=== PATIENT | female | born 1935 | race Caucasian/White ===

== ENCOUNTER 2016-11-03 14:09 | Inpatient (IN) | payer MEDICARE ==
[~2016-11-03] VITALS: Ht 167.6 cm; Wt 70.3 kg
[2016-11-03 14:14] VITALS: BP 144/80; PULSE 83; RESP 18; O2SAT 93
[2016-11-03 15:44] LABS: BASOPHILS % (AUTO) 0.5 % (0-3); EOSINOPHILS % (AUTO) 1.8 % (0-5); MONOCYTES % (AUTO) 9.5 % (4-12); Mean Corpuscular Hemoglobin 26.5 pg (27.0-35.0); Mean Corpuscular Volume 85.2 fL (81-100); NEUTROPHILS % (AUTO) 78.5 % (40-74); Platelet Count 245 bil/L (150-400)
--- NOTE | 2016-11-03 15:59 | DRSVH ---
PROCEDURE: X-RAY CHEST ONE VIEW, PORTABLE ([id number]) INDICATIONS: chf TECHNIQUE: One view of the chest was acquired. COMPARISON: None. FINDINGS: Surgical changes and devices: None. Lungs and pleura: No pleural effusions or pneumothorax. Lungs are clear. Mediastinum: Mediastinal contours appear normal. Heart size is normal. Bones and chest wall: No suspicious bony lesions. Overlying soft tissues appear unremarkable. IMPRESSION: No acute cardiopulmonary abnormality Dictated by: Jewel Deshpande M.D. on 11/03/2016 at 15:56 Approved by: Jewel Deshpande M.D. on 11/03/2016 at 15:57
[2016-11-03 16:24] LABS: TROPONIN T < 0.010 ug/L (0.0-0.011)
--- NOTE | 2016-11-03 18:04 | ED.REPORT ---
HPI-General Illness Date of Service Nov 03, 2016 ED Provider: Dr. Eros Islas M.D. A healthy 81 year old female presents to the ED from Urgent Care with worsening exertional dyspnea onset two weeks ago. Associated symptoms include constipation , confusion, decreased appetite, left hip pain, nausea, vomiting, and fatigue. Her symptoms have progressed to difficulty and shortness of breath with simple tasks such as dressing herself and showering. The patient denies fever, urinary symptoms, chest pain, focal weakness, diaphoresis, or other symptoms. She has recently been followed by her PCP for bilateral lower extremity edema with no known cause, treated with Furosemide. 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 Nursing Notes Stated Complaint: SOB Chief Complaint: Respiratory Distress Nursing Notes Reviewed: Yes Allergies: Coded Allergies: No Known Allergies (Unverified , 11/03/16) Scheduled Ascorbic Acid (Vitamin C) 250 Mg Tab.chew 500 MG PO DAILY Aspirin (Aspirin) 325 Mg Tablet 325 MG PO DAILY Calcium Carbonate (Calcium Carbonate) 500 Mg/5 Ml Oral.susp 500 MG PO DAILY Furosemide (Furosemide) 40 Mg Tablet 40 MG PO DAILY States stopped taking bc vivian who wants to be an MD told her it may be reason pt is short of breath Gluc 2Kcl/Chondr/Jt Hy/Hy AC (Glucosamine & Chondroitin Cap) 1 Each Capsule 1 EACH PO DAILY Multivit with Calcium,Iron,Min (Therapeutic M) 1 Each Tablet 1 EACH PO DAILY Potassium Gluconate (Potassium Gluconate) 99 Mg Tablet 99 MG PO DAILY General Time Seen by MD: 18:03 Chief Complaint Breathing problem (Exertional Dyspnea) Hx Obtained From: Patient Arrived By: Walk-in Sudden in Onset?: No Onset Occurred: More than a week ago... (2 weeks) Symptom Duration: Intermittent Location: : Hip left Quality: Painful Severity: Current: Moderate Severity: Maximum: Moderate Associated with: Reports: Nausea, Vomiting, Denies: Chest pain, Diaphoresis, Fever Pertinent Negative: Relieved by nothing Recent Healthcare: No recent doctor visit, Previous surgery Past Medical History Past Medical History Bilateral lower extremity edema treated with Furosemide Past Surgical History None reported Smoking History Unknown if Ever Smoker Social History Other Social History: Good social support Ambulatory Status Independent Review of Systems + Decreased appetite - Urinary symptoms Full Review of Systems Constitutional: Reports: Fatigue, Denies: Fever Respiratory: Reports: Dyspnea on exertion Cardiovascular: Denies: Chest pain GI: Reports: Constipation, Nausea, Vomiting Musculoskeletal: Reports: Extremity swelling (Bilateral legs), Joint pain ( Left hip) Skin: Denies Diaphoresis Neurologic: Denies: Focal weakness Psychiatric: Reports: Confusion Complete sys rev & neg: except as marked. Physical Exam Vital Signs Vital Signs Date Time Temp Pulse Resp B/P Pulse Ox O2 Delivery O2 Flow Rate FiO2 11/03/16 18:41 37.2 80 20 146/66 96 Room Air 11/03/16 14:14 36.3 83 18 144/80 93 Initial VS: Reviewed Head / Eyes: Atraumatic, Normocephalic Respiratory: Breath sounds normal, Clear to auscultation, No respiratory distress Cardiovascular: Regular rate & rhythm, Heart sounds normal Skin: Warm, Dry, No cyanosis Neurologic: Alert, Oriented, Nonfocal Psychiatric: Mood/affect normal, Behavior normal, Normal thought content General/Constitutional: Awake, Alert, No acute distress Distress / Hydration: Positive: Dehydration mild ENT: Airway patent Mouth: Positive: Mucous membranes dry Abdomen: Soft Tenderness/Guarding/Rebound: Positive: Tender LLQ... Interpretation & Diagnostics Lab Results Interpretation Result Diagram: 11/03/16 1537 11/03/16 1537 Test 11/03/16 15:37 11/03/16 19:15 White Blood Count 6.2th/mm3 (3.8-10.1) Red Blood Count 4.31mil/mm3 (3.90-5.20) Hemoglobin 11.4g/dL (12.0-15.6) Hematocrit 36.7% (35.0-46.0) Mean Corpuscular Volume 85.2fL (81-100) Mean Corpuscular Hemoglobin 26.5pg (27.0-35.0) Mean Corpuscular Hemoglobin Concent 31.1% (32.0-37.0) Red Cell Distribution Width 13.3% (12.3-15.4) Platelet Count 245bil/L (150-400) Neutrophils (%) (Auto) 78.5% (40-74) Lymphocytes (%) (Auto) 9.5% (14-46) Monocytes (%) (Auto) 9.5% (4-12) Eosinophils (%) (Auto) 1.8% (0-5) Basophils (%) (Auto) 0.5% (0-3) Sodium Level 137mEq/L (134-144) Potassium Level 5.0mEq/L (3.5-5.2) Chloride Level 96mEq/L (97-108) Carbon Dioxide Level 31mmol/L (18-29) Blood Urea Nitrogen 46mg/dL (8-27) Creatinine 2.22mg/dL (0.57-1.00) Estimat Glomerular Filtration Rate 31mL/min (>59) Glucose Level 95mg/dL (60-99) Calcium Level 16.0mg/dL (8.5-10.1) Total Bilirubin 0.3mg/dL (0.0-1.2) Aspartate Amino Transf (AST/SGOT) 14U/L (0-50) Alanine Aminotransferase (ALT/SGPT) 9U/L (0-32) Alkaline Phosphatase 72U/L (25-165) Troponin T < 0.010ug/L (0.0-0.011) Pro-B-Type Natriuretic Peptide 782.2pg/mL (0-738) Total Protein 6.6g/dL (6.4-8.4) Albumin 3.8g/dL (3.4-5.0) Thyroid Stimulating Hormone (TSH) 5.510uIU/mL (0.450-4.500) Free Thyroxine 1.21ng/dL (0.82-1.77) Hold Guzmán Top Tube Received (Received) ECG Interpretation ECG Interpretation: Sinus rhythm rate 74 Probable left atrial enlargement Abnormal R-wave progression, early transition Inferior infarct, old No STEMI Time: 15:41 Interpreted by: ED physician X-Ray Chest Interpretation Chest Xray Interpretation: IMPRESSION: No acute cardiopulmonary abnormality Dictated by: Jewel Deshpande M.D. on 11/03/2016 at 15:56 View: Portable, 1 view Interpretation / Wet Read by: Interpret - Radiologist X-Ray Interpretation Xray Interpretation: IMPRESSION: Minimal bilateral hip joint degeneration. Dictated by: Munir Higgins M.D. on 11/03/2016 at 20:06 Study Performed: AP Pelvis w/ Lateral Left Hip X-Ray Ordered: Pelvis, Hip left Interpretation / Wet Read by: Interpret - Radiologist Re-Eval/Medical Decision Med Decision/Clinical Course 81-year-old presents with exertional dyspnea type symptoms, but is discovered to be grossly hypercalcemic on blood evaluation. Source of this is unclear. Differential concerns include hyperparathyroidism, adrenal insufficiency, malignancy, including breast cancer, multiple myeloma, and also paraneoplastic syndromes associated with various tumors. She does take a single Tums daily, but this is unlikely to account for the height of her hypercalcemia. She does not take vitamin D supplements. She is admitted for IV hydration and Lasix, parathormone determination is pending, thyroid functions are not remarkable, (trivial elevation of TSH) , and no obvious metastatic disease on acquired x-rays. Additionally, while all of her symptoms may be due to her hypercalcemia, the possibility of progressive angina needs to be considered and excluded. Time of Eval: 18:30 Patient Status: Condition improved Re-Evaluation/Progress Note: Discussed with patient x-ray and lab results, diagnosis, and plan for admit. Patient agrees with plan for care and all questions were addressed. Consultation : Referral / Consult Name: Sonny Zepeda MD Consulted With: Hospitalist Call Returned at: 19:03 Wireless Sales Manager: Agrees with eval, Agrees with plan, Accepts admit Counseled Regarding: Diagnosis, Lab results, Need for admission Discharge & Departure Primary Impression: Hypercalcemia Additional Impression: Progressive angina Disposition: ADMITTED TO HOSPITAL Discharge Condition All VS Reviewed: Yes Condition: Improved Referrals: Sylvia Josue DO (PCP) [place]mar Attestation Portions of this note were transcribed by Nicole Barth. I, Dr. Islas, personally performed the history, physical exam, and medical decision-making; I reviewed and confirmed the accuracy of the information in the transcribed note. Signed by: Delmar Delong, 11/03/2016, 22:00 copies to: Sylvia Josue Christopher W MD Nov 03, 2016 18:04 NICOLE BARTH Nov 03, 2016 18:09
[2016-11-03] MEDS ORDERED: 0.9% Sodium Chloride 1,000 ML IV SCH (18:40)
[2016-11-03 18:41] VITALS: BP 146/66; PULSE 80; RESP 20; O2SAT 96
[2016-11-03] MEDS ORDERED: Alum-Mag Hydrox-Simeth 30 mL Suspension PO PRN (19:15)
[2016-11-03] MEDS ORDERED: Polyethylene Glycol (PEG) 17 Gm Powder PO PRN (19:15)
--- NOTE | 2016-11-03 20:08 | DRSVH ---
PROCEDURE: X-RAY PELVIS W/LAT HIP (LT) ([id number]) INDICATIONS: pain left hip TECHNIQUE: AP pelvis with lateral view(s) of the left hip(s). COMPARISON: None. FINDINGS: Bones: No fractures or dislocations. Pelvic ring appears intact. No suspicious bony lesions. Lowe r lumbar disc degeneration. Minimal bilateral hip joint degeneration Soft tissues: The visualized bowel gas pattern is normal. No suspicious soft tissue calcifications. IMPRESSION: Minimal bilateral hip joint degeneration. Dictated by: Munir Higgins M.D. on 11/03/2016 at 20:06 Approved by: Munir Higgins M.D. on 11/03/2016 at 20:07
[2016-11-03] MEDS ORDERED: CALC500O PO (21:22)
[2016-11-03] MEDS ORDERED: GLUC-120 PO (21:23)
[2016-11-03] MEDS ORDERED: FURO40TA4 PO (21:24)
[2016-11-03] MEDS ORDERED: POTA99TA3 PO (21:26)
[2016-11-03] MEDS ORDERED: MULT-140 PO (21:27)
[2016-11-03] MEDS ORDERED: ASPI325T32 PO (21:27)
[2016-11-03] MEDS ORDERED: ASCO250T7 PO (21:28)
[2016-11-03 21:51] VITALS: BP 157/83; PULSE 93; RESP 18; O2SAT 96
[2016-11-03 21:56] VITALS: PULSE 79
[2016-11-03 22:16] LABS: APPEARANCE,URINE SLIGHTLY CLOUDY (CLEAR,HAZY); COLOR,URINE YELLOW (YELLOW); OCCULT BLOOD,URINE NEGATIVE (NEGATIVE); UROBILINOGEN,URINE NORMAL (NORMAL)
--- NOTE | 2016-11-03 22:30 | NUR ---
Pt arrive to unit at 2114. Sitting at bedside and talking with staff, no complaints of pain or SOB. On O2 via NC. Tele Sr 93 1st degree. Will continue to monitor
[2016-11-03] MEDS: 0.9% Sodium Chloride 1,000 ML IV SCH (23:04)
[2016-11-04] MEDS ORDERED: Heparin 5,000 Unit/mL Inj SUBQ SCH (00:30)
--- NOTE | 2016-11-04 00:44 | PCM.HPMED ---
Subjective Date of Service Nov 03, 2016 Primary Provider: Admitting Physician: Primary Care Physician: Sylvia Josue DO Attending Physician: Chief Complaint: Persistent shortness of breathe History of Present Illness: Marleen Neil is a 81 year old female with Chronic leg edema of Lasix who presents to [facility] emergency department from Urgent Care with worsening exertion dyspnea onset two weeks ago. Patient reported the dyspnea has been progressively getting worse with difficulty doing daily activities such as dressing and walking around in her house. Associated symptoms include constipation, fatigue, confusion, decreased appetite, left hip pain, nausea, vomiting, and fatigue. She denies fever, urinary symptoms, chest pain, focal weakness, diaphoresis. She has recently been followed by her PCP for bilateral lower extremity edema with no known cause, treated with Furosemide and lost a few pounds after starting. She stopping taking the Lasix on the recommendations of her family. 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 Patient not currently on any Vitamin D or Calcium supplementations. She was suppose to get an echo and Cardiology evaluation on 12/04/16. Clinic data reviewed: Calcium 10 on 10/17/16. Reported of elevated BP but not diagnosed with Hypertension and not on any blood pressure medications. Review of Systems: Pertinent positives as noted in HPI. All other systems were reviewed and are negative Allergies Coded Allergies: No Known Allergies (Unverified , 11/03/16) Home Medications From Marleen Begum [id number] 1935 11/03/2016 01:15 PM 1/3 furosemide 40 mg tablet take 1 tablet by oral route every day Glucosamine prednisolone acetate 1 % eye drops,suspension PMH Chronic lower extremity edema Elevated Blood pressure but not on medications Surgical History Cataract extraction Family History Father had Cancer (unknown) Sister and Daughter has Breast Cancer Son is a Diabetic Social History Hx Alcohol Use: No Hx Substance Use: No Hx Tobacco Use: Yes Smoking Status: Former Smoker Exam Vital Signs Vital Sign - Last Date Time Temp Pulse Resp B/P Pulse Ox O2 Delivery O2 Flow Rate FiO2 11/03/16 18:41 37.2 80 20 146/66 96 Room Air Exam General: Alert, Oriented X3, Cooperative, No acute Distress Eyes: PERRLA, Scleral Anicteric Mouth: Mouth Normal, Mucous Membranes Moist/[place] Neck: Supple, no Thyromegaly, trachea central. Chest & Lungs: Clear to auscultation & percussion, No adventitious breath sounds, no crackles, no wheeze Cardiovascular: Normal S1, Normal S2, No Murmurs/Rubs/Gallops, Regular Rate/ Rhythm, (No JVD, no peripheral edema) Pulses: Radial (present and equal), Dorsalis Pedi (present and equal) Abdomen: Soft, Non-tender, Non-distended, Normoactive bowel tones. Musculoskeletal: Unremarkable. Normal range of motion, no swollen or erythematous joints Extremities: 2 + pitting leg edema, no cyanosis, no clubbing. Skin: No rashes. Warm and dry, no erythematous areas Neurological: Grossly neurologically intact, has generalized weakness, Normal Speech, Sensation Intact Lymphatic: Lymph nodes Cervical and Axillary not palpable. Lab and Diagnostics Labs Laboratory Tests Test 11/03/16 15:37 White Blood Count 6.2th/mm3 (3.8-10.1) Red Blood Count 4.31mil/mm3 (3.90-5.20) Hemoglobin 11.4g/dL (12.0-15.6) Hematocrit 36.7% (35.0-46.0) Mean Corpuscular Volume 85.2fL (81-100) Mean Corpuscular Hemoglobin 26.5pg (27.0-35.0) Mean Corpuscular Hemoglobin Concent 31.1% (32.0-37.0) Red Cell Distribution Width 13.3% (12.3-15.4) Platelet Count 245bil/L (150-400) Neutrophils (%) (Auto) 78.5% (40-74) Lymphocytes (%) (Auto) 9.5% (14-46) Monocytes (%) (Auto) 9.5% (4-12) Eosinophils (%) (Auto) 1.8% (0-5) Basophils (%) (Auto) 0.5% (0-3) Sodium Level 137mEq/L (134-144) Potassium Level 5.0mEq/L (3.5-5.2) Chloride Level 96mEq/L (97-108) Carbon Dioxide Level 31mmol/L (18-29) Blood Urea Nitrogen 46mg/dL (8-27) Creatinine 2.22mg/dL (0.57-1.00) Estimat Glomerular Filtration Rate 31mL/min (>59) Glucose Level 95mg/dL (60-99) Calcium Level 16.0mg/dL (8.5-10.1) Total Bilirubin 0.3mg/dL (0.0-1.2) Aspartate Amino Transf (AST/SGOT) 14U/L (0-50) Alanine Aminotransferase (ALT/SGPT) 9U/L (0-32) Alkaline Phosphatase 72U/L (25-165) Troponin T < 0.010ug/L (0.0-0.011) Pro-B-Type Natriuretic Peptide 782.2pg/mL (0-738) Total Protein 6.6g/dL (6.4-8.4) Albumin 3.8g/dL (3.4-5.0) Thyroid Stimulating Hormone (TSH) 5.510uIU/mL (0.450-4.500) Free Thyroxine 1.21ng/dL (0.82-1.77) Hold Guzmán Top Tube Received (Received) Result Diagram: 11/03/16 1537 11/03/16 1537 X-Rays, CTs and MRIs X-RAY CHEST ONE VIEW, PORTABLE 11/03 IMPRESSION: No acute cardiopulmonary abnormality Dictated by: Jewel Deshpande M.D. on 11/03/2016 at 15:56 Approved by: Jewel Deshpande M.D. on 11/03/2016 at 15:57 Assessment & Plan Marleen Neil is a 81 year old female with Chronic leg edema of Lasix who presents to [facility] emergency department from Urgent Care with worsening exertion dyspnea 1. Acute Hypercalcemia. Present on admission Suspect lab error as her Calcium was normal on 10/17/16. Etiology includes Primary or Secondary hyperparathyroidim, Adrenal insufficiency, Humoral hypercalcemia of malignancy,Multiple Myeloma, Sarcoidosis. Patient has extensive family history of cancer. - IV fluids saline diuresis, stop in the morning and re evaluate - checking PTH and PTH related peptide - restrict calcium intake and encourage mobilization - doubt Bisphosphonates or calcitonin are indicated given her mild symptoms 2. Subacute dyspnea with leg edema. Present on admission Suspect Congestive heart failure. BNP elevated at 782.2 - complete echo tomorrow - Cardiology evaluation as outpatient. 3. Acute Kidney injury. Present on admission Suspect secondary to pre renal azotemia due to hypovolemia. Rule out disease process such as Kidney stones or Multiple myeloma - avoid nephrotoxic insults - monitor urine output - consider Nephrology consult if no improvement with IV fluids - Acetaminophen as needed for mild pain/fever/headache - Bowel regimen as needed - Antiemetic as needed Patient admitted under inpatient status with expected length of stay > 2 midnights for severity of present symptoms, complexities of treatment plan and risk for adverse event . Resuscitation Status: CPR: Attempt Resuscitation Sonny Zepeda MD Nov 03, 2016 19:19
[2016-11-04 01:26] VITALS: BP 135/67; PULSE 99; RESP 16; O2SAT 94
--- NOTE | 2016-11-04 04:45 | NUR ---
Activity Pt calls for assist appropriately. Tele S93 with 1st degree block. NS infusing at 125. Pt concerned about elevating her legs in bed due to edema, likes to sleep with her head flat. UA sent. No complaints of SOB this shift. Care continues Addendum: 11/04/16 at 0619 by SUMMER KWAN RN [id number] Critical Ca of 13.4 called to RN from lab. RN notified Dr Zepeda via [employer] page- decrease Ca from previous result 16.0 on 11/03 at 1500
[2016-11-04 05:22] VITALS: BP 140/69; PULSE 89; RESP 18; O2SAT 95
[2016-11-04] MEDS: 0.9% Sodium Chloride 1,000 ML IV SCH ×3 (07:21→16:51)
[2016-11-04 11:07] VITALS: PULSE 76
[2016-11-04] MEDS: PREDNISOLONE 1% LEFT_EYE SCH ×3 (11:31→20:52)
--- NOTE | 2016-11-04 11:46 | NUR ---
having an ultrasound and ecogram done; unable to do vitals Addendum: 11/04/16 at 1147 by KELSEY DICKEY CNA Amended: Links added.
--- NOTE | 2016-11-04 11:58 | DRSVH ---
PROCEDURE: US RENAL SONOGRAM INDICATIONS: rule out kidney stones TECHNIQUE: Real-time scanning was performed of the kidneys and bladder, with image documentation. COMPARISON: [facility], CT, KUB - CT (ABD/PEL W/O CONT), 10/02/2010, 23:32. FINDINGS: Kidneys: Kidneys are normal in size. Right kidney measures 11.7 cm long; left kidney measures 11.4 cm long. Right renal cortical thickness is 1.5 cm; left renal cortical thickness is 1.6 cm. Renal c ortical echotexture is normal. No hydronephrosis or nephrolithiasis. Mild left renal pyelectasis. No suspicious solid mass lesions. Bladder: Pre-void bladder volume is 296 mL. Post-void residual is 96 mL. Pre-void images demonstra te no intraluminal masses or stones. On pre-void images, there ureteral jets are noted with color Do ppler interrogation. (Of note, ureteral jets may not be detectable in up to 25% of cases due to insu fficient differences in specific gravity between ureteral and bladder urine). Miscellaneous: No free pelvic fluid. IMPRESSION: 1. No visible stones seen bilaterally. 2. Mild left renal pyelectasis. 3. 96 cc PVR. Dictated by: Jose M HOLGUIN Interpreted: Neela Oseguera MD on 11/04/2016 at 11:56 Transcribed by: CHRISTIANO on 11/04/2016 at 11:58 Approved by: Neela Oseguera M.D. on 11/05/2016 at 9:28
--- NOTE | 2016-11-04 12:02 | NUR ---
Lower extremity ultrasound Received call from ultrasound regarding results of pts LE study. Pt is positive for occlusive and nonocclusive DVT in mid to distal superficial femoral vein of the right leg. Will notifiy hospitalist.
--- NOTE | 2016-11-04 12:52 | DRSVH ---
PROCEDURE: US VENOUS LEG DUPLEX BILATERAL INDICATIONS: rule out dvt TECHNIQUE: Real-time imaging, as well as color and pulse Doppler interrogation, were performed of the deep veins of both legs from the inguinal ligament to the popliteal fossa. COMPARISON: None. FINDINGS: The knee superficial femoral vein is bifid and there is occlusive thrombus present within the mid and distal aspects of the vessels. Thrombus also within the right popliteal vein which is no ncompressible. The common femoral and proximal superficial femoral vein is patent. 1.1 cm right juliocesar in lymph node. No deep venous thrombosis seen within the left lower extremity. IMPRESSION: 1. Occlusive thrombus within the bifid right superficial femoral vein as well as the popliteal vein s uspicious for acute deep venous thrombosis. 2. Enlarged morphologically normal appearing right groin lymph node. Recommend clinical correlation and management. Angelina Haro RN given results by the telegraphic typewriter mechanic at 1210 hrs. 11/04/2016. Dictated by: Jose M HOLGUIN Interpreted: Neela Oseguera MD on 11/04/2016 at 12:49 Transcribed by: CHRISTIANO on 11/04/2016 at 12:52 Approved by: Neela Oseguera M.D. on 11/05/2016 at 9:28
--- NOTE | 2016-11-04 13:12 | DRSVH ---
[facility] [address] [place] [address] Echocardiogram Report Name: PAXTON WALKERudy Date : 11/04/2016 Height: 66 in Hospital Exam Location: [facility] Weight: 155 lb Gender: Female BSA: 1.8 m2 : 1935 Age: 81 yrs BP: 140/69 mmHg Reason For Study: EDEMA, DYSPNEA Ordering Physician: HOSPITALIST [facility] Performed By: Juan Box Referring Physician: Adam BAEZA Interpretation Summary The left ventricle is normal in size. The ejection fraction is estimated to be 60-65%. There is mild to moderate tricuspid regurgitation. The right ventricular systolic pressure is estimated at 47 mmHg assuming a right atrial pressure of 3 mm Hg. The ascending aorta is moderately enlarged. Procedure: A two-dimensional transthoracic echocardiogram with color flow and Doppler was performed. The study quality was technically good. There is no prior echocardiogram noted for this patient. The patient was in normal sinus rhythm during the exam. Left Ventricle: The left ventricle is normal in size. There is normal left ventricular wall thickness. The ejection fraction is estimated to be 60-65%. There are no focal wall motion abnormalities. Right Ventricle: Borderline right ventricular enlargement. The right ventricular systolic function is normal. Atria: The left atrial size is normal. The right atrium is severely dilated. The interatrial septum is intact with no evidence for an atrial septal defect. Mitral Valve: The mitral valve is normal in structure and function. There is trace mitral regurgitation. Aortic Valve: The aortic valve is trileaflet. The aortic valve opens well. No aortic regurgitation is present. Tricuspid Valve: The tricuspid valve is normal in structure and function. There is mild to moderate tricuspid regurgitation. The right ventricular systolic pressure is estimated at 47 mmHg assuming a right atrial pressure of 3 mm Hg. Pulmonic Valve: The pulmonic valve is normal in structure and function. There is trace pulmonic regurgitation. Great Vessels: The aortic root is normal size. The ascending aorta is moderately enlarged. The pulmonary artery is normal size. The IVC is of normal diameter and collapses greater than 50% with a sniff. This suggests a low right atrial pressure of 3 mm Hg. Pericardium/ Pleura There is no pericardial effusion. There is no pleural effusion. MMode/2D Measurements & Calculations LVIDd: 4.5 cm RA long axis LVOT diam: 2.0 cm LVIDs: 2.5 cm LA A2 area: 18.2 cm Ao root diam FS: 43.8 % LA A4 area: 21.5 cm RA area EPSS: 0.68 cm LA length (vol) Aortic Jxn: 3.0 cm IVSd: 0.66 cm : 26.6 cm asc Aorta Diam LVPWd: 0.92 cm LA vol: 54.0 ml RA vol LA vol index : 107.ml Ao Arch Diam (Prox RA Trans): 2.7 cm : 59.7 mm2 IVC diam: 1.8 cm LV gutierrez. diameter/BSA LV sys. diameter/BSA RVD1 (basal) RVD2 (mid): 3.4 cm (cm/m^2): 2.5 (cm/m^2): 1.4 Doppler Measurements & Calculations Ao V2 max MV E max taco MV E/A: 0.68 TR max taco : 174.5 cm/sec : 73.3 cm/sec Med Peak E' Taco : 332.1 cm/sec Ao max P.2 mmHg MV A max taco TR max PG Ao mean P.1 mmHg : 107.8 cm/sec E/E' med: 8.7 : 44.1 mmHg LVOT Max Taco Lat Peak E' Taco PA V2 max : 110.1 cm/sec : 100.2 cm/sec E/E' lat: 8.2 PA mean PG MIGUEL(I,D): 2.5 cm E/e' average : 1.8 mmHg sev ratio: 0.79 Pulm A Revs Dur MV A dur : 0.13 sec MV dec time: 0.20 secAo V2 mean LV V1 max PG PA V2 mean : 118.0 cm/sec : 60.7 cm/sec Ao V2 VTI: 33.4 cm LV V1 VTI : 26.3 cm MIGUEL(V,D): 2.0 cm2 MIGUEL indexed to BSA Pulm A Revs Dur - MV A (cm^2/m^2): 1.4 Dur: 0.01 msec Electronically signed by: Rhett Galo on Reading Physician:11/04/2016 01:11 PM
[2016-11-04 14:50] VITALS: BP 131/70; PULSE 74; RESP 18; O2SAT 94
[2016-11-04] MEDS: Furosemide 10 mg/mL 4 mL Inj IVPUSH SCH (15:03)
--- NOTE | 2016-11-04 15:55 | NUR ---
Social Work- Initial Assessment Data: See Initial Assessment. Pt is a 81 year old female admitted 11/03/16 for hypercalcemia per H&P. Pt's insurance is [employer]. PCP is Sylvia Josue DO. PASCUAL met with pt at bedside to discuss discharge planning, SW role explained. Pt was alert and oriented x3. Pt resides in [place] alone in senior apartments where she remains independent with her ADLs. Pt has no HH or SNF experience. Pt uses no DME and drives. Pt has no LTC or VA benefits. SW discussed DPOA and provided pt information. Pt to discharge home with grandkids to transport via POV. No anticipated discharge needs. SW continues to follow. Assessment: Pt who is independent at discharge. Plan: Pt to discharge home with grandkids to transport via POV. No anticipated discharge needs. PASCUAL continues to follow. ANA Olivier Addendum: 11/04/16 at 1558 by JHON CRAWFORD Amended: Links added.
--- NOTE | 2016-11-04 16:10 | CONS ---
[address] [address] CONSULTATION REPORT PATIENT: PAXTON WALKER : 1935 MR#: [id number] ADMIT: 11/03/2016 JOB ID: [id number] DATE OF SERVICE: 11/04/2016 RENAL CONSULTATION: HISTORY: The patient is a very pleasant 81-year-old white female, who was admitted to [facility] for acute kidney injury and severe hypercalcemia. Renal consultation is being sought for further evaluation and management of her acute kidney injury. The patient states that she was feeling fine until August when she underwent a corneal transplant. Following this, she states that she has had considerable number of problems including intermittent but severe left hip and left knee pain. She states that she has taken a few acetaminophen but has not taken any NSAIDs for this. The pain improves somewhat, however, this is followed for the last three weeks by progressive shortness of breath with even minimal exertion. She denies any recent upper respiratory tract symptoms, chest pain, paroxysmal nocturnal dyspnea, cough, wheezing, leg pain, or muscle pain in either lower extremities, but she does state that she has some mild chronic lower extremity edema. She also states her appetite has been diminished over the last few weeks. She has had some nausea but no vomiting, constipation or diarrhea. She does state that she takes one Sagrario tablet a day and has for a number of years. Otherwise she states she has had some increased somnolence and generalized fatigue. There are no recent myalgias, rashes, fever or chills. She denies a history of any prior renal problems. There is no difficulties in urination or any current or past history of hematuria, proteinuria, recurrent urinary tract infections or renolithiasis. She denies a history of diabetes, hepatitis, hypertension or lupus. In the emergency department, her creatinine was elevated at 2.22 and her calcium at that time was 16.0. She has been treated with aggressive hydration and her calcium has improved down to 13 and there has been a slight improvement in her creatinine. DATE OF SERVICE: PAST MEDICAL HISTORY: Is remarkable only for some chronic lower extremity edema which has been treated intermittently with furosemide. As noted above, there is no history of any prior stroke, seizure, asthma, emphysema, coronary artery disease, congestive heart failure, thyroid illness or hepatitis. PAST SURGICAL HISTORY: Is remarkable for corneal transplant as detailed above. She has no allergy for any medications. SOCIAL HISTORY: She denies use of alcohol, tobacco or illicit drugs. She states that she normally is quite active in her numerous activities of daily living which until the last two months she has performed without any significant restrictions. FAMILY HISTORY: Remarkable for a daughter who of breast cancer. The patient has had one mammogram in the past and has never had a colonoscopy. She is currently not on any medications prior to admission other than some p.r.n. furosemide. REVIEW OF SYSTEMS: As detailed above. Otherwise is unremarkable. PHYSICAL EXAMINATION: Revealed a well-developed 81-year-old white female who is alert and oriented x3, in no distress at the time of my evaluation. Her temperature was 37.0, blood pressure was 140/69, pulse rate was 88 and respirations were 18. HEENT examination is remarkable for mildly pale sclerae. Cornea and conjunctivae were unremarkable. Neck is supple without adenopathy, thyromegaly or jugular venous distention. Lungs showed some diminished breath sounds in both bases. Heart was regular and rhythmical with a soft systolic murmur. Abdomen is soft, without any tenderness, rebound, guarding, masses or hepatosplenomegaly. Extremities showed some mild bilateral lower extremity pitting edema. There is no clubbing or cyanosis noted. Skin turgor was good and there is no evidence of any rashes. LABORATORY EXAMINATION: This morning, her sodium is 138, potassium 4.1, chloride of 101, bicarbonate is 26. BUN and creatinine were 43 and 2.14. Calcium was 13.4. TSH was slightly elevated at 5.5, and her intact PTH was low at 10. Her white count was 6.2, hemoglobin 11.4, hematocrit 36.7, red cell indices, platelet count and differential were normal. Urinalysis showed a specific gravity 1.020, pH was 6. Tests for protein were slightly positive. Occult blood ketones and leukocyte esterase were negative. She had 6-10 WBCs per high-power field, moderate epithelial cells, a few hyaline casts and there were some calcium oxalate crystals noted. Her chest x-ray was unremarkable for any masses or bony changes. X-ray of the left hip and pelvis did not show any lytic or blastic lesions. Venous duplex showed a DVT in the right lower leg and a questionable right inguinal lymph node enlargement. Renal ultrasound done this morning showed normal-size kidneys with normal dense cortical medullary distinction. There was some mild left renal pelviectasis and there was a 96 mL postvoid residual. IMPRESSION: 1. Acute kidney injury secondary to dehydration. 2. Hypercalcemia. In light of the patient's age, I would be strongly suspicious of some type of underlying malignancy. 3. Mild normocytic, normochromic anemia. 4. Deep venous thrombosis. RECOMMENDATION: As noted above, I am very suspicious of an underlying malignancy and would like to get a serum protein electrophoresis along with a mammogram and other tumor markers. I would also like to get a sed rate and an LDH on her with her morning lab. I would like to continue her on the normal saline but also add some Lasix to her IV. Once again, I would like to thank you for allowing me to participate in the care of this most interesting patient. I will be following her closely with you.
--- NOTE | 2016-11-04 16:13 | NUR ---
Pt off unit Pt transported to Radiology at 1600 hrs for nuclear medicine VQ scan and bone survey x-rays.
--- NOTE | 2016-11-04 17:55 | DRSVH ---
PROCEDURE: X-RAY CHEST, TWO VIEWS ([id number]) INDICATIONS: DVT with shortness of breath and hypoxia TECHNIQUE: 2 views of the chest were acquired. COMPARISON: [facility], CR, XR CHEST 1VW (PORTABLE), 11/03/2016, 15:35. FINDINGS: Surgical changes and devices: None. Lungs and pleura: There is a small left pleural effusion which is new when compared with the study da adilson 11/03/16. No pneumothorax. Right lung is clear. Mediastinum: Mediastinal contours are normal. Heart size is normal. Bones and chest wall: No suspicious bony abnormalities. Soft tissues appear unremarkable. IMPRESSION: Small left pleural effusion new when compared with yesterday's study. Dictated by: Nila Last M.D. on 11/04/2016 at 17:52 Approved by: Nila Last M.D. on 11/04/2016 at 17:53
[2016-11-04 20:00] VITALS: PULSE 84
[2016-11-04 20:45] VITALS: BP 129/72; PULSE 78; RESP 20; O2SAT 97
[2016-11-04] MEDS: Calcitonin 200 unit/mL 2mL Inj IM SCH (20:54)
--- NOTE | 2016-11-04 21:20 | DRSVH ---
PROCEDURE: NM LUNG VQ RADIOPHARMACEUTICAL: 26.8 mCi Tc-99m DTPA aerosol by inhalation and 5.48 mCi Tc-99m MAA intravenously . INDICATIONS: DVT with shortness of breath and hypoxia TECHNIQUE: Ventilation images were obtained first with Tc-99m DTPA aerosol. Subsequently, perfusion images were acquired after intravenous injection of Tc-99m MAA. Anterior, posterior, GOMEZ, KAYLEIGH, RPO, LPO, left and right lateral views were obtained. COMPARISON: [facility], CR, XR CHEST 2VW, 11/04/2016, 17:31. FINDINGS: An unmatched perfusion defect is present within the anterior segment of the right upper lob e. No other perfusion/ventilation defects visualized. IMPRESSION: 1. Unmatched perfusion defect within the anterior segment of the right upper lobe. No associated abno rmality is visualized on the plain film from the same date. No other perfusion defects or ventilation defects. This suggests an intermediate probability of pulmonary embolus. Dictated by: Nila Last M.D. on 11/04/2016 at 21:10 Approved by: Nila Last M.D. on 11/04/2016 at 21:18
--- NOTE | 2016-11-04 21:23 | DRSVH ---
PROCEDURE: X-RAY COMPLETE BONE SURVEY ([id number]) INDICATIONS: hypercalcemia, RULE OUT MYELOMA TECHNIQUE: Multiple views obtained of various bony structures as described below. COMPARISON: None. FINDINGS: Skull (lateral): No suspicious bony lesions. No fractures. Thoracic spine (AP, lateral): Bones are osteopenic. No suspicious bony lesions. No acute vertebral body compression fractures. There are moderate degenerative changes including intervertebral disc sp dominique narrowing and osteophytosis. Lumbar spine (AP, lateral): Bones are osteopenic. No suspicious bony lesions. No acute vertebral puma dy compression fractures. There is grade I L5 on S1 anterolisthesis. Moderate facet sclerosis is pres ent within the lower lumbar spine. Pelvis (AP): No suspicious bony lesions. No fractures. Overlying soft tissues appear unremarkable. Right and left humeri (AP): No suspicious bony lesions. No fractures. Overlying soft tissues appea r unremarkable. Right and left femurs (AP): No suspicious bony lesions. No fractures. Overlying soft tissues appea r unremarkable. IMPRESSION: 1. No lytic lesions to suggest multiple myeloma. 2. No acute fracture dislocation. 3. Diffuse osteopenia and degenerative changes of the thoracolumbar spine. Dictated by: Nila Last M.D. on 11/04/2016 at 21:19 Approved by: Nila Last M.D. on 11/04/2016 at 21:21
--- NOTE | 2016-11-04 22:36 | PCM.PNMED ---
Subjective Date of Service Nov 04, 2016 Subjective Patient is feeling a little bit better. However, she states is because she is just lying in bed. She still has a significant amount of dyspnea on exertion. Exam Vital Signs Vital Sign - Last Date Time Temp Pulse Resp B/P Pulse Ox O2 Delivery O2 Flow Rate FiO2 11/04/16 21:23 Supplement Oxygen 11/04/16 20:45 37.4 78 20 129/72 97 1.50 Intake and Output 11/03/16 11/03/16 11/04/16 Cumulative From/Thru 15:00 23:00 07:00 11/03/16 14:14 - 11/04/16 05:43 Intake Total 1223 ml 1223 ml Output Total 1100 ml 1100 ml Balance 123 ml 123 ml Intake Oral 450 ml 450 ml IV Total 773 ml 773 ml Output Urine Total 1100 ml 1100 ml # Voids 4 4 # Bowel Movements 0 0 Exam General: Patient is in no apparent distress. She is resting comfortably in bed with her head elevated at approximate 45. HEENT: Head is atraumatic and normocephalic. Eyes: Pupils are equally round and reactive to light and accommodation. Extraocular muscles are intact. Sclera are white, anicteric. Subconjunctival mucosa is pink. Ears and nose are unremarkable. Oropharynx: There is no mucosal lesions, there is no thrush, there is no pharyngitis. Neck: Is supple, there are no nodes, or masses or tenderness. Chest: Is clear to auscultation and percussion. There are no rales, rhonchi, wheezes or rubs. Heart: Rate, rhythm is regular. There is no murmur, rub or gallop. Abdomen: Good bowel sounds are present. Abdomen is soft, nontender, no organomegaly or masses were appreciated. Extremities: Are symmetrical and well perfused. There is 2-3+ pitting edema with right leg slightly greater in size than left leg. There is no cellulitis, no rash. Neurologic: There are no focal neurological deficits. Cranial nerves II through XII are intact. There are no sensory or motor deficits. Psychiatric: Patients mood is calm and shows no sign of agitation. Genital: Deferred Rectal: Deferred Lab and Diagnostics Result Diagram: 11/03/16 1537 11/04/16 0500 Microbiology Name: MARLEEN NEIL Age/Sex: 81/F Attend Dr: Sonny Zepeda MD Acct: [id number] Unit: [id number] Status: ADM IN Location: [facility] 1017-1 Re11/03/16 Disch: Specimen: [id number] Collected: 11/03/16 Status: RES Req#: [id number] Received: 11/03/16 Source: URINE CC Sp Desc : LAURI Cavanaugh Dr: YOEL WHITMORE MD Ordered: URINE CULT Procedure Result Verified Site Microbiology PUJA CULT URINE Preliminary 11/04/16 No growth to date X-Rays, CTs and MRIs X-RAY CHEST ONE VIEW, PORTABLE 11/03 IMPRESSION: No acute cardiopulmonary abnormality Dictated by: Jewel Deshpande M.D. on 11/03/2016 at 15:56 Approved by: Jewel Deshpande M.D. on 11/03/2016 at 15:57 PROCEDURE: NM LUNG VQ RADIOPHARMACEUTICAL: 26.8 mCi Tc-99m DTPA aerosol by inhalation and 5.48 mCi Tc- 99m MAA intravenously. INDICATIONS: DVT with shortness of breath and hypoxia TECHNIQUE: Ventilation images were obtained first with Tc-99m DTPA aerosol. Subsequently, perfusion images were acquired after intravenous injection of Tc-99m MAA. Anterior, posterior, GOMEZ, KAYLEIGH, RPO, LPO, left and right lateral views were obtained. COMPARISON: [facility], CR, XR CHEST 2VW, 11/04/2016, 17:31. FINDINGS: An unmatched perfusion defect is present within the anterior segment of the right upper lobe. No other perfusion/ventilation defects visualized. IMPRESSION: 1. Unmatched perfusion defect within the anterior segment of the right upper lobe. No associated abnormality is visualized on the plain film from the same date. No other perfusion defects or ventilation defects. This suggests an intermediate probability of pulmonary embolus. Dictated by: Nila Last M.D. on 11/04/2016 at 21:10 Approved by: Nila Last M.D. on 11/04/2016 at 21:18 PROCEDURE: X-RAY COMPLETE BONE SURVEY ([id number]) INDICATIONS: hypercalcemia, RULE OUT MYELOMA TECHNIQUE: Multiple views obtained of various bony structures as described below. COMPARISON: None. FINDINGS: Skull (lateral): No suspicious bony lesions. No fractures. Thoracic spine (AP, lateral): Bones are osteopenic. No suspicious bony lesions. No acute vertebral body compression fractures. There are moderate degenerative changes including intervertebral disc space narrowing and osteophytosis. Lumbar spine (AP, lateral): Bones are osteopenic. No suspicious bony lesions. No acute vertebral body compression fractures. There is grade I L5 on S1 anterolisthesis. Moderate facet sclerosis is present within the lower lumbar spine. Pelvis (AP): No suspicious bony lesions. No fractures. Overlying soft tissues appear unremarkable. Right and left humeri (AP): No suspicious bony lesions. No fractures. Overlying soft tissues appear unremarkable. Right and left femurs (AP): No suspicious bony lesions. No fractures. Overlying soft tissues appear unremarkable. IMPRESSION: 1. No lytic lesions to suggest multiple myeloma. 2. No acute fracture dislocation. 3. Diffuse osteopenia and degenerative changes of the thoracolumbar spine. Dictated by: Nila Last M.D. on 11/04/2016 at 21:19 Approved by: Nila Last M.D. on 11/04/2016 at 21:21 PROCEDURE: US RENAL SONOGRAM INDICATIONS: rule out kidney stones TECHNIQUE: Real-time scanning was performed of the kidneys and bladder, with image documentation. COMPARISON: [facility], CT, KUB - CT (ABD/PEL W/O CONT), 10/02/2010 , 23:32. FINDINGS: Kidneys: Kidneys are normal in size. Right kidney measures 11.7 cm long; left kidney measures 11.4 cm long. Right renal cortical thickness is 1.5 cm; left renal cortical thickness is 1.6 cm. Renal cortical echotexture is normal. No hydronephrosis or nephrolithiasis. Mild left renal pyelectasis. No suspicious solid mass lesions. Bladder: Pre-void bladder volume is 296 mL. Post-void residual is 96 mL. Pre- void images demonstrate no intraluminal masses or stones. On pre-void images, there ureteral jets are noted with color Doppler interrogation. (Of note, ureteral jets may not be detectable in up to 25% of cases due to insufficient differences in specific gravity between ureteral and bladder urine). Miscellaneous: No free pelvic fluid. IMPRESSION: 1. No visible stones seen bilaterally. 2. Mild left renal pyelectasis. 3. 96 cc PVR. Dictated by: Jose M HOLGUIN Interpreted: Neela Oseguera MD on 11/04/2016 at 11: 56 Transcribed by: CHRISTIANO on 11/04/2016 at 11:58 Cardiac Echo Impressions Echocardiogram Report Name: MARLEEN NEIL GStudy Date : 11/04/2016 Height: 66 in Hospital Exam Location: [facility] Weight: 155 lb Gender: Female BSA: 1.8 m2 : 1935 Age: 81 yrs BP: 140/69 mmHg Reason For Study: EDEMA, DYSPNEA Ordering Physician: HOSPITALIST [facility] Performed By: Juan Box Referring Physician: Adam BAEZA Interpretation Summary The left ventricle is normal in size. The ejection fraction is estimated to be 60-65%. There is mild to moderate tricuspid regurgitation. The right ventricular systolic pressure is estimated at 47 mmHg assuming a right atrial pressure of 3 mm Hg. The ascending aorta is moderately enlarged. Assessment & Plan Marleen Neil is a 81 year old female with Chronic leg edema of Lasix who presents to [facility] emergency department from Urgent Care with worsening exertion dyspnea # Acute Hypercalcemia. Present on admission Etiology includes Primary or Secondary hyperparathyroidim, Adrenal insufficiency , Humoral hypercalcemia of malignancy,Multiple Myeloma, Sarcoidosis. Patient has extensive family history of cancer. - Continue IV fluids saline diuresis, stop in the morning and re evaluate - Well check PTH and PTH related peptide - We will restrict calcium intake and encourage mobilization - We will hold Bisphosphonates or calcitonin given her mild symptoms # Right lower extremity DVT - Start full dose therapeutic Lovenox as bridging therapy to other oral anticoagulant which I suspect will be Coumadin - VQ scan was ordered which showed intermediate probability of pulmonary embolism # Subacute dyspnea with leg edema. Present on admission back secondary to pulmonary embolism secondary to right lower extremity DVT - Echocardiogram not remarkable - Cardiology evaluation as outpatient. - Continue full dose subcutaneous Lovenox # Acute Kidney injury. Present on admission Suspect secondary to pre renal azotemia due to hypovolemia. Rule out disease process such as Kidney stones or Multiple myeloma or other - avoid nephrotoxic insults - monitor urine output - Nephrology has been consulted and discussed case with Dr. Subramanian and appreciate his input. # Given patient's hypercalcemia and possibly hypercoagulable state will need to rule out malignancy -Check tumor markers -Check CT scan of the chest abdomen and pelvis -Bone survey ordered which was negative for any lesions suggestive of multiple myeloma - Acetaminophen as needed for mild pain/fever/headache - Bowel regimen as needed - Antiemetic as needed Position: The patient will need to be here another 4872 hours for the evaluation treatment of the above condition. . Pain Evaluation: Adequate Pain Control VTE Mechanical Devices: Intermittant Pneumatic CD Resuscitation Status: CPR: Attempt Resuscitation Eros Paz MD Nov 04, 2016 22:36
[2016-11-05] VITALS (9 sets, daily range): BP systolic 127–150; BP diastolic 68–76; PULSE 68–84; RESP 17–24; O2SAT 88–94
[2016-11-05] MEDS: 0.9% Sodium Chloride 1,000 ML IV SCH (01:28)
[2016-11-05 06:49] LABS: Magnesium 1.6 mg/dL (1.6-2.6); Phosphorus 4.1 mg/dL (2.5-4.9)
[2016-11-05 06:56] LABS: BASOPHILS % (AUTO) 0.5 % (0-3); EOSINOPHILS % (AUTO) 1.9 % (0-5); MONOCYTES % (AUTO) 16.2 % (4-12); Mean Corpuscular Hemoglobin 26.5 pg (27.0-35.0); NEUTROPHILS % (AUTO) 73.1 % (40-74); Platelet Count 205 bil/L (150-400)
[2016-11-05] MEDS ORDERED: Magnesium Sulf 4 Gm/100 mL H2O 4 GM in IV Premix 1 EACH IV ONE (09:00)
[2016-11-05] MEDS: Potassium Chloride 20 mEq SR Tablet PO SCH ×2 (09:00→21:48)
[2016-11-05] MEDS: Calcitonin 200 unit/mL 2mL Inj IM SCH ×2 (10:12→21:48)
[2016-11-05] MEDS: Pantoprazole 40 mg ER24 Tablet PO SCH (10:12)
[2016-11-05] MEDS: PREDNISOLONE 1% LEFT_EYE SCH ×4 (10:13→21:48)
[2016-11-05] MEDS: Furosemide 10 mg/mL 4 mL Inj IVPUSH SCH (10:37)
[2016-11-05] MEDS: 0.9% NaCl + KCl 20 mEq/L 1,000 ML IV SCH ×2 (10:39→21:03)
[2016-11-05] MEDS: Ondansetron 2 mg/mL 2 mL Inj IVPUSH PRN ×2 (11:08→21:48)
[2016-11-05 11:56] LABS: INR 1.01 ratio
--- NOTE | 2016-11-05 12:58 | PCM.CONPHA ---
Subjective Date of Service: Nov 05, 2016 Persistent shortness of breathe Reason for Pharmacy Consult: Anticoagulation Management Objective Vital Signs Date Time Temp Pulse Resp B/P Pulse Ox O2 Delivery O2 Flow Rate FiO2 11/05/16 10:07 77 11/05/16 09:17 36.6 72 24 150/72 92 Nasal Cannula 1.50 11/05/16 08:24 Supplement Oxygen 11/05/16 04:55 36.6 72 18 127/68 94 Nasal Cannula 1.50 11/05/16 03:51 Supplement Oxygen 11/05/16 00:47 37.2 82 20 147/68 93 Nasal Cannula 1.50 11/04/16 21:23 Supplement Oxygen 11/04/16 20:45 37.4 78 20 129/72 97 Nasal Cannula 1.50 11/04/16 20:00 84 11/04/16 14:50 36.7 74 18 131/70 94 Nasal Cannula 1.00 11/04/16 13:54 Supplement Oxygen Intake and Output 11/03/16 11/04/16 11/05/16 00:00 00:00 00:00 Intake Total 3272 ml Output Total 1500 ml Balance 1772 ml Weight (Kilograms): 70.300 Height (Feet): 5 Height (Inches): 6.00 Test 11/03/16 15:37 11/03/16 19:15 11/03/16 21:50 11/04/16 05:00 Troponin T < 0.010ug/L (0.0-0.011) Pro-B-Type Natriuretic Peptide 782.2pg/mL (0-738) Thyroid Stimulating Hormone (TSH) 5.510uIU/mL (0.450-4.500) Free Thyroxine 1.21ng/dL (0.82-1.77) Hold Guzmán Top Tube Received (Received) Calcium (Send out) 13.1mg/dL (8.7-10.3) Parathyroid Hormone Interpretation Comment (.) Total Intact Parathyroid Hormone 10pg/mL (15-65) Urine Color Yellow (YELLOW) Urine Appearance Slightly cloudy Urine pH 6.0 (5.0-8.0) Urine Specific [place] 1.020 (1.003-1.035) Urine Protein Tracemg/dL (NEG,TRACE) Urine Glucose (UA) Negativemg/dL (NEGATIVE) Urine Ketones Negativemg/dL (NEGATIVE) Urine Occult Blood Negative (NEGATIVE) Urine Nitrite Negative (NEGATIVE) Urine Bilirubin Negative (NEGATIVE) Urine Urobilinogen Normalmg/dL (NORMAL) Urine Leukocyte Esterase Small (NEGATIVE) Urine RBC 0-2/hpf (0-2) Urine WBC 6-10/hpf (0-5) Urine Epithelial Cells Moderate/hpf (NONE-MOD) Urine Crystals Oxalic acid crystals (NONE Urine Bacteria Few/hpf (NONE-FEW) Urine Hyaline Casts 5/20/lpf (NONE) Urine Granular Casts None seen (NONE SEEN) Urine Waxy Casts None seen (NONE SEEN) Urine Red Blood Cell Casts None seen (NONE SEEN) Urine White Blood Cell Casts None seen (NONE SEEN) Urine Mucus Present (None Seen) Urine Trichomonas None seen (NONE SEEN) Urine Yeast None (NONE SEEN) Urinalysis Comment None Urine Culture Reflexed Indicated Test 11/04/16 17:47 11/05/16 06:00 11/05/16 11:25 Erythrocyte Sedimentation Rate 18mm/hr (0-40) Uric Acid 9.0mg/dL (2.6-7.2) Lactate Dehydrogenase 284U/L (100-190) White Blood Count 4.2th/mm3 (3.8-10.1) Red Blood Count 3.58mil/mm3 (3.90-5.20) Hemoglobin 9.5g/dL (12.0-15.6) Hematocrit 30.8% (35.0-46.0) Mean Corpuscular Volume 86.0fL (81-100) Mean Corpuscular Hemoglobin 26.5pg (27.0-35.0) Mean Corpuscular Hemoglobin Concent 30.8% (32.0-37.0) Red Cell Distribution Width 13.2% (12.3-15.4) Platelet Count 205bil/L (150-400) Neutrophils (%) (Auto) 73.1% (40-74) Lymphocytes (%) (Auto) 8.1% (14-46) Monocytes (%) (Auto) 16.2% (4-12) Eosinophils (%) (Auto) 1.9% (0-5) Basophils (%) (Auto) 0.5% (0-3) Sodium Level 144mEq/L (134-144) Potassium Level 3.2mEq/L (3.5-5.2) Chloride Level 104mEq/L (97-108) Carbon Dioxide Level 28mmol/L (18-29) Blood Urea Nitrogen 39mg/dL (8-27) Creatinine 1.92mg/dL (0.57-1.00) Estimat Glomerular Filtration Rate 36mL/min (>59) Glucose Level 105mg/dL (60-99) Calcium Level 11.7mg/dL (8.5-10.1) Phosphorus Level 4.1mg/dL (2.5-4.9) Magnesium Level 1.6mg/dL (1.6-2.6) Total Bilirubin 0.2mg/dL (0.0-1.2) Aspartate Amino Transf (AST/SGOT) 14U/L (0-50) Alanine Aminotransferase (ALT/SGPT) 8U/L (0-32) Alkaline Phosphatase 55U/L (25-165) Total Protein 5.4g/dL (6.4-8.4) Albumin 2.8g/dL (3.4-5.0) Prothrombin Time 10.8sec (8.1-12.5) Prothromb Time International Ratio 1.01ratio Assessment/Plan Assessment/Plan Warfarin dosing per pharmacy Indication: DVT, possible PE Pertinent info: hypercalcemia, hypercoagulable state (possible malignancy), anticoagulated with Lovenox 70 mg daily (renally adjusted). INR goal: 2-3 (NEW START WARFARIN) INR today: 1.01 Give warfarin 5 mg PO today at 1700. Pharmacy to continue to monitor and dose warfarin daily. Thank you, Ambar Gustafson Pharmacist Ambar Gustafson Nov 05, 2016 12:58
--- NOTE | 2016-11-05 13:16 | NUR ---
Nausea Pt experienced nausea and wretching after a few sips of contrast Primary nurse administered antiemetic, provided emesis bag and mouthwash Nausea and wretching continued, pt was taken off the unit for diagnostic studies Care ongoing
--- NOTE | 2016-11-05 13:55 | PCM.PNMED ---
Subjective Date of Service Nov 05, 2016 Subjective The patient's serum calcium continues to improve. This morning was 11.7 with an improvement in her creatinine down to a level of 1.92. She states that she feels better and is breathing a bit easier. Her blood pressures have been averaging around 120-140 range, her intake and output for the last 24 hours was 3272 in and 1500 in urine output plus additional thousand last 8 hours. This morning her sodium is 144, potassium 3.2, chloride 104, bicarbonate is 24, BUN and creatinine were 39 and 1.92 respectively. Renal ultrasound is negative. A Doppler exam of her lower extremity shows a DVT on the right side with a possible enlargement of an inguinal lymph node. Renal ultrasound is unremarkable. Exam Vital Signs Vital Sign - Last Date Time Temp Pulse Resp B/P Pulse Ox O2 Delivery O2 Flow Rate FiO2 11/05/16 10:07 77 11/05/16 09:17 36.6 24 150/72 92 Nasal Cannula 1.50 Intake and Output 11/04/16 11/04/16 11/05/16 Cumulative From/Thru 14:59 22:59 06:59 11/03/16 14:14 - 11/05/16 06:55 Intake Total 2049 ml 1459 ml 4731 ml Output Total 400 ml 1000 ml 2500 ml Balance 1649 ml 459 ml 2231 ml Intake Oral 800 ml 440 ml 1690 ml IV Total 1249 ml 1019 ml 3041 ml Output Urine Total 400 ml 1000 ml 2500 ml # Voids 5 9 # Bowel Movements 0 0 0 Exam Neck is supple without adenopathy thyromegaly or jugular venous distention. Lungs were clear to auscultation. Heart is regular rhythm; soft systolic murmur. Abdomen is soft without any tenderness or rebound guarding masses or hepatosplenomegaly. Show minimal edema as compared to yesterday. Lab and Diagnostics Result Diagram: 11/05/1659911/05/16599 Microbiology Name: PAXTON WALKER Age/Sex: 81/F Attend Dr: Sonny Zepeda MD Acct: [id number] Unit: [id number] Status: ADM IN Location: [facility] [place] 1017-1 Re11/03/16 Disch: Specimen: [id number] Collected: 11/03/16 Status: RES Req#: [id number] Received: 11/03/16 Source: URINE JONES Sp Desc : LAURI Cavanaugh Dr: YOEL WHITMORE MD Ordered: URINE CULT Procedure Result Verified Site Microbiology PUJA CULT URINE Preliminary 11/04/16 No growth to date X-Rays, CTs and MRIs X-RAY CHEST ONE VIEW, PORTABLE 11/03 IMPRESSION: No acute cardiopulmonary abnormality Dictated by: Jewel Deshpande M.D. on 11/03/2016 at 15:56 Approved by: Jewel Deshpande M.D. on 11/03/2016 at 15:57 PROCEDURE: NM LUNG VQ RADIOPHARMACEUTICAL: 26.8 mCi Tc-99m DTPA aerosol by inhalation and 5.48 mCi Tc- 99m MAA intravenously. INDICATIONS: DVT with shortness of breath and hypoxia TECHNIQUE: Ventilation images were obtained first with Tc-99m DTPA aerosol. Subsequently, perfusion images were acquired after intravenous injection of Tc-99m MAA. Anterior, posterior, GOMEZ, [place], RPO, LPO, left and right lateral views were obtained. COMPARISON: [facility], CR, XR CHEST 2VW, 11/04/2016, 17:31. FINDINGS: An unmatched perfusion defect is present within the anterior segment of the right upper lobe. No other perfusion/ventilation defects visualized. IMPRESSION: 1. Unmatched perfusion defect within the anterior segment of the right upper lobe. No associated abnormality is visualized on the plain film from the same date. No other perfusion defects or ventilation defects. This suggests an intermediate probability of pulmonary embolus. Dictated by: Nila Last M.D. on 11/04/2016 at 21:10 Approved by: Nila Last M.D. on 11/04/2016 at 21:18 PROCEDURE: X-RAY COMPLETE BONE SURVEY ([id number]) INDICATIONS: hypercalcemia, RULE OUT MYELOMA TECHNIQUE: Multiple views obtained of various bony structures as described below. COMPARISON: None. FINDINGS: Skull (lateral): No suspicious bony lesions. No fractures. Thoracic spine (AP, lateral): Bones are osteopenic. No suspicious bony lesions. No acute vertebral body compression fractures. There are moderate degenerative changes including intervertebral disc space narrowing and osteophytosis. Lumbar spine (AP, lateral): Bones are osteopenic. No suspicious bony lesions. No acute vertebral body compression fractures. There is grade I L5 on S1 anterolisthesis. Moderate facet sclerosis is present within the lower lumbar spine. Pelvis (AP): No suspicious bony lesions. No fractures. Overlying soft tissues appear unremarkable. Right and left humeri (AP): No suspicious bony lesions. No fractures. Overlying soft tissues appear unremarkable. Right and left femurs (AP): No suspicious bony lesions. No fractures. Overlying soft tissues appear unremarkable. IMPRESSION: 1. No lytic lesions to suggest multiple myeloma. 2. No acute fracture dislocation. 3. Diffuse osteopenia and degenerative changes of the thoracolumbar spine. Dictated by: Nila Last M.D. on 11/04/2016 at 21:19 Approved by: Nila Last M.D. on 11/04/2016 at 21:21 PROCEDURE: US RENAL SONOGRAM INDICATIONS: rule out kidney stones TECHNIQUE: Real-time scanning was performed of the kidneys and bladder, with image documentation. COMPARISON: [facility], CT, KUB - CT (ABD/PEL W/O CONT), 10/02/2010 , 23:32. FINDINGS: Kidneys: Kidneys are normal in size. Right kidney measures 11.7 cm long; left kidney measures 11.4 cm long. Right renal cortical thickness is 1.5 cm; left renal cortical thickness is 1.6 cm. Renal cortical echotexture is normal. No hydronephrosis or nephrolithiasis. Mild left renal pyelectasis. No suspicious solid mass lesions. Bladder: Pre-void bladder volume is 296 mL. Post-void residual is 96 mL. Pre- void images demonstrate no intraluminal masses or stones. On pre-void images, there ureteral jets are noted with color Doppler interrogation. (Of note, ureteral jets may not be detectable in up to 25% of cases due to insufficient differences in specific gravity between ureteral and bladder urine). Miscellaneous: No free pelvic fluid. IMPRESSION: 1. No visible stones seen bilaterally. 2. Mild left renal pyelectasis. 3. 96 cc PVR. Dictated by: Jose M HOLGUIN Interpreted: Neela Oseguera MD on 11/04/2016 at 11: 56 Transcribed by: CHRISTIANO on 11/04/2016 at 11:58 Cardiac Echo Impressions Echocardiogram Report Name: PAXTON WALKER GStudy Date : 11/04/2016 Height: 66 in Hospital Exam Location: [facility] Weight: 155 lb Gender: Female BSA: 1.8 m2 : 1935 Age: 81 yrs BP: 140/69 mmHg Reason For Study: EDEMA, DYSPNEA Ordering Physician: [facility]PITALIST [facility] Performed By: Juan Box Referring Physician: Adam BAEZA Interpretation Summary The left ventricle is normal in size. The ejection fraction is estimated to be 60-65%. There is mild to moderate tricuspid regurgitation. The right ventricular systolic pressure is estimated at 47 mmHg assuming a right atrial pressure of 3 mm Hg. The ascending aorta is moderately enlarged. Assessment & Plan Impression #1 hypercalcemia most likely secondary to occult malignancy #2 acute kidney injury secondary to #1 which is resolving #3 hypokalemia secondary to diuresis Recommendations #1 I would like to continue on her current medical therapy for decrease her IV fluid and her diuretics. I would like to continue on the calcitonin and start her on a bisphosphonate. VTE Mechanical Devices: Intermittant Pneumatic CD Resuscitation Status: CPR: Attempt Resuscitation Alphonse Subramanian DO Nov 05, 2016 13:55
--- NOTE | 2016-11-05 16:43 | DRSVH ---
PROCEDURE: CT CHEST, ABDOMEN AND PELVIS WITHOUT CONTRAST ([id number]) INDICATIONS: HYPERCALCEMIA, POSSIBLE HYPERCOAGULABLE STATE TECHNIQUE: After the administration of oral contrast, 5 mm thick sections acquired from the lung apices to the s ymphysis pubis. 5 mm thick coronal and sagittal reformats acquired, with additional 7 mm coronal MIP reformats through the lungs. For radiation dose reduction, the following was used: automated expos ure control, adjustment of mA and/or kV according to patient size. COMPARISON: None. FINDINGS: Image quality: Excellent. CHEST: Lungs and pleura: Small bilateral pleural fluid collections are noted. Patchy airspace opacities note d in the left lung base nonspecific finding may represent pneumonia, aspiration or less likely neopla stic process. Central and peripheral airways are patent are normal in caliber. Mediastinum: Heart size is normal. No pericardial effusion. There is a 2.0 cm short axis superior m ediastinal/left paratracheal lymph node. Thoracic aorta and central pulmonary arteries are normal in size. Esophagus is normal in caliber. No hiatal hernia. Chest wall: No axillary or supraclavicular adenopathy by size criteria. Thyroid gland is within nor mal limits where visualized. ABDOMEN: Solid organs: Liver and spleen are normal in size. Gallbladder is within normal limits. Pancreas i s normal in contours. Right adrenal gland is normal in appearance. Mass is noted in the expected alisha on of the left adrenal gland which could be related to lymphadenopathy versus a mass arising from the left adrenal gland. Both kidneys are normal in size, without hydronephrosis or nephrolithiasis. Peritoneum and bowel: Small and large bowel loops are normal in caliber and wall thickness. No free fluid or air. Nodes and vessels: Bulky periaortic retroperitoneal lymphadenopathy is noted. There is a 1.8 cm short axis right internal iliac lymph node. There is a 1.2 cm in short axis left common iliac node. Enlarg ed bilateral inguinal lymph nodes are noted. Largest right inguinal lymph node measures 1.3 cm in jhonatan rt axis. Largest left inguinal lymph node measures 1.1 cm in short axis. Aorta and inferior vena cava are normal in size. Miscellaneous: No ventral hernias. PELVIS: Genitourinary: Bladder wall thickness is normal. Miscellaneous: No inguinal hernias or adenopathy. Bones: No suspicious bony lesions. No vertebral body compression fractures. IMPRESSION: 1. Small bilateral pleural fluid collections. 2. Patchy airspace opacity in the left lower lobe compatible with aspiration, pneumonia or less likel y neoplastic process. 3. Mediastinal, retroperitoneal, pelvic and bilateral inguinal lymphadenopathy highly suspicious for neoplastic process including lymphoma or metastatic disease. 4. Mass lesion in the expected region of the left adrenal gland which may represent retroperitoneal l ymphadenopathy encroaching on the left adrenal gland or a mass arising from the left adrenal gland. Dictated by: Manju Neumann MD, PhD on 11/05/2016 at 16:27 Approved by: Manju Neumann MD, PhD on 11/05/2016 at 16:42
--- NOTE | 2016-11-05 19:09 | NUR ---
Nausea/fatigue Patient with persistent nausea today with retching and emesis after attempting to drink contrast for ct scan. Patient is very tired unable to take po fluids to maintain hydration so iv fluids going at slow rate. Pt was able to complete ct scan despite not being able to retain contrast.
--- NOTE | 2016-11-05 22:13 | PCM.PNMED ---
Subjective Date of Service Nov 05, 2016 Subjective Patient is tired from recent testing. Also complains of nausea due to oral contrast material that she drank for her CT scan which she vomited a significant proportion of. Patient has no other new specific complaints she states she is slightly less short of breath and she was when she was admitted. Exam Vital Signs Vital Sign - Last Date Time Temp Pulse Resp B/P Pulse Ox O2 Delivery O2 Flow Rate FiO2 11/05/16 20:15 83 11/05/16 19:40 36.8 17 145/72 88 Nasal Cannula 1.50 Intake and Output 11/04/16 11/04/16 11/05/16 Cumulative From/Thru 15:00 23:00 07:00 11/03/16 14:14 - 11/05/16 06:55 Intake Total 2049 ml 1459 ml 4731 ml Output Total 400 ml 1000 ml 2500 ml Balance 1649 ml 459 ml 2231 ml Intake Oral 800 ml 440 ml 1690 ml IV Total 1249 ml 1019 ml 3041 ml Output Urine Total 400 ml 1000 ml 2500 ml # Voids 5 9 # Bowel Movements 0 0 0 Exam General: Patient appears ill and nauseous holding an emesis bag. She otherwise is resting comfortably in bed with her head elevated at approximate 45. HEENT: Head is atraumatic and normocephalic. Eyes: Pupils are equally round and reactive to light and accommodation. Extraocular muscles are intact. Sclera are white, anicteric. Subconjunctival mucosa is pink. Ears and nose are unremarkable. Oropharynx: There is no mucosal lesions, there is no thrush, there is no pharyngitis. Neck: Is supple, there are no nodes, or masses or tenderness. Chest: The patient has rales in the left lower lobe. There are no wheezes rhonchi or rubs. Heart: Rate, rhythm is regular. There is no murmur, rub or gallop. Abdomen: Good bowel sounds are present. Abdomen is soft, nontender, no organomegaly or masses were appreciated. Extremities: Are symmetrical and well perfused. There is less pitting edema with right leg slightly greater in size than left leg. There is no cellulitis, no rash. Neurologic: There are no focal neurological deficits. Cranial nerves II through XII are intact. There are no sensory or motor deficits. Psychiatric: Patients mood is calm and she shows no sign of agitation. Genital: Deferred Rectal: Deferred Lab and Diagnostics Result Diagram: 11/05/1659911/05/16599 Microbiology Name: MARLEEN NEIL Age/Sex: 81/F Attend Dr: Sonny Zepeda MD Acct: [id number] Unit: [id number] Status: ADM IN [place] [facility] [place]7-1 Re11/03/16 Disch: Specimen: [id number] Collected: 11/03/16 Status: RES Req#: [id number] Received: 11/03/16 Source: URINE CC Sp Desc : LAURI Cavanaugh Dr: YOEL WHITMORE MD Ordered: URINE CULT Procedure Result Verified Site Microbiology PUJA CULT URINE Preliminary 11/04/16-36 No growth to date X-Rays, CTs and MRIs X-RAY CHEST ONE VIEW, PORTABLE 11/03 IMPRESSION: No acute cardiopulmonary abnormality Dictated by: Jewel Deshpande M.D. on 11/03/2016 at 15:56 Approved by: Jewel Deshpande M.D. on 11/03/2016 at 15:57 PROCEDURE: NM LUNG VQ RADIOPHARMACEUTICAL: 26.8 mCi Tc-99m DTPA aerosol by inhalation and 5.48 mCi Tc- 99m MAA intravenously. INDICATIONS: DVT with shortness of breath and hypoxia TECHNIQUE: Ventilation images were obtained first with Tc-99m DTPA aerosol. Subsequently, perfusion images were acquired after intravenous injection of Tc-99m MAA. Anterior, posterior, GOMEZ, IRAQI, RPO, LPO, left and right lateral views were obtained. COMPARISON: [facility], [place], XR CHEST 2VW, 11/04/2016, 17:31. FINDINGS: An unmatched perfusion defect is present within the anterior segment of the right upper lobe. No other perfusion/ventilation defects visualized. IMPRESSION: 1. Unmatched perfusion defect within the anterior segment of the right upper lobe. No associated abnormality is visualized on the plain film from the same date. No other perfusion defects or ventilation defects. This suggests an intermediate probability of pulmonary embolus. Dictated by: Nila Last M.D. on 11/04/2016 at 21:10 Approved by: Nila Last M.D. on 11/04/2016 at 21:18 PROCEDURE: X-RAY COMPLETE BONE SURVEY ([id number]) INDICATIONS: hypercalcemia, RULE OUT MYELOMA TECHNIQUE: Multiple views obtained of various bony structures as described below. COMPARISON: None. FINDINGS: Skull (lateral): No suspicious bony lesions. No fractures. Thoracic spine (AP, lateral): Bones are osteopenic. No suspicious bony lesions. No acute vertebral body compression fractures. There are moderate degenerative changes including intervertebral disc space narrowing and osteophytosis. Lumbar spine (AP, lateral): Bones are osteopenic. No suspicious bony lesions. No acute vertebral body compression fractures. There is grade I L5 on S1 anterolisthesis. Moderate facet sclerosis is present within the lower lumbar spine. Pelvis (AP): No suspicious bony lesions. No fractures. Overlying soft tissues appear unremarkable. Right and left humeri (AP): No suspicious bony lesions. No fractures. Overlying soft tissues appear unremarkable. Right and left femurs (AP): No suspicious bony lesions. No fractures. Overlying soft tissues appear unremarkable. IMPRESSION: 1. No lytic lesions to suggest multiple myeloma. 2. No acute fracture dislocation. 3. Diffuse osteopenia and degenerative changes of the thoracolumbar spine. Dictated by: Nila Lats M.D. on 11/04/2016 at 21:19 Approved by: Nila Last M.D. on 11/04/2016 at 21:21 PROCEDURE: US RENAL SONOGRAM INDICATIONS: rule out kidney stones TECHNIQUE: Real-time scanning was performed of the kidneys and bladder, with image documentation. COMPARISON: [facility], CT, KUB - CT (ABD/PEL W/O CONT), 10/02/2010 , 23:32. FINDINGS: Kidneys: Kidneys are normal in size. Right kidney measures 11.7 cm long; left kidney measures 11.4 cm long. Right renal cortical thickness is 1.5 cm; left renal cortical thickness is 1.6 cm. Renal cortical echotexture is normal. No hydronephrosis or nephrolithiasis. Mild left renal pyelectasis. No suspicious solid mass lesions. Bladder: Pre-void bladder volume is 296 mL. Post-void residual is 96 mL. Pre- void images demonstrate no intraluminal masses or stones. On pre-void images, there ureteral jets are noted with color Doppler interrogation. (Of note, ureteral jets may not be detectable in up to 25% of cases due to insufficient differences in specific gravity between ureteral and bladder urine). Miscellaneous: No free pelvic fluid. IMPRESSION: 1. No visible stones seen bilaterally. 2. Mild left renal pyelectasis. 3. 96 cc PVR. Dictated by: Jose M Wang RRA Interpreted: Neela Oseguera MD on 11/04/2016 at 11: 56 Transcribed by: CHRISTIANO on 11/04/2016 at 11:58 PROCEDURE: CT CHEST, ABDOMEN AND PELVIS WITHOUT CONTRAST ([id number]) INDICATIONS: HYPERCALCEMIA, POSSIBLE HYPERCOAGULABLE STATE TECHNIQUE: After the administration of oral contrast, 5 mm thick sections acquired from the lung apices to the symphysis pubis. 5 mm thick coronal and sagittal reformats acquired, with additional 7 mm coronal MIP reformats through the lungs. For radiation dose reduction, the following was used: automated exposure control, adjustment of mA and/or kV according to patient size. COMPARISON: None. FINDINGS: Image quality: Excellent. CHEST: Lungs and pleura: Small bilateral pleural fluid collections are noted. Patchy airspace opacities noted in the left lung base nonspecific finding may represent pneumonia, aspiration or less likely neoplastic process. Central and peripheral airways are patent are normal in caliber. Mediastinum: Heart size is normal. No pericardial effusion. There is a 2.0 cm short axis superior mediastinal/left paratracheal lymph node. Thoracic aorta and central pulmonary arteries are normal in size. Esophagus is normal in caliber. No hiatal hernia. Chest wall: No axillary or supraclavicular adenopathy by size criteria. Thyroid gland is within normal limits where visualized. ABDOMEN: Solid organs: Liver and spleen are normal in size. Gallbladder is within normal limits. Pancreas is normal in contours. Right adrenal gland is normal in appearance. Mass is noted in the expected region of the left adrenal gland which could be related to lymphadenopathy versus a mass arising from the left adrenal gland. Both kidneys are normal in size, without hydronephrosis or nephrolithiasis. Peritoneum and bowel: Small and large bowel loops are normal in caliber and wall thickness. No free fluid or air. Nodes and vessels: Bulky periaortic retroperitoneal lymphadenopathy is noted. There is a 1.8 cm short axis right internal iliac lymph node. There is a 1.2 cm in short axis left common iliac node. Enlarged bilateral inguinal lymph nodes are noted. Largest right inguinal lymph node measures 1.3 cm in short axis. Largest left inguinal lymph node measures 1.1 cm in short axis. Aorta and inferior vena cava are normal in size. Miscellaneous: No ventral hernias. PELVIS: Genitourinary: Bladder wall thickness is normal. Miscellaneous: No inguinal hernias or adenopathy. Bones: No suspicious bony lesions. No vertebral body compression fractures. IMPRESSION: 1. Small bilateral pleural fluid collections. 2. Patchy airspace opacity in the left lower lobe compatible with aspiration, pneumonia or less likely neoplastic process. 3. Mediastinal, retroperitoneal, pelvic and bilateral inguinal lymphadenopathy highly suspicious for neoplastic process including lymphoma or metastatic disease. 4. Mass lesion in the expected region of the left adrenal gland which may represent retroperitoneal lymphadenopathy encroaching on the left adrenal gland or a mass arising from the left adrenal gland. Dictated by: Manju Neumann MD, PhD on 11/05/2016 at 16:27 Approved by: Manju Neumann MD, PhD on 11/05/2016 at 16:42 Cardiac Echo Impressions Echocardiogram Report Name: MARLEEN NEIL GStudy Date : 11/04/2016 Height: 66 in Hospital Exam Location: [facility] Weight: 155 lb Gender: Female BSA: 1.8 m2 : 1935 Age: 81 yrs BP: 140/69 mmHg Reason For Study: EDEMA, DYSPNEA Ordering Physician: HOSPITALIST [facility] Performed By: Juan Box Referring Physician: Adam BAEZA Interpretation Summary The left ventricle is normal in size. The ejection fraction is estimated to be 60-65%. There is mild to moderate tricuspid regurgitation. The right ventricular systolic pressure is estimated at 47 mmHg assuming a right atrial pressure of 3 mm Hg. The ascending aorta is moderately enlarged. Assessment & Plan Marleen Neil is a 81 year old female with Chronic leg edema of Lasix who presents to [facility] emergency department from Urgent Care with worsening exertion dyspnea # Acute Hypercalcemia. Present on admission Etiology includes Primary or Secondary hyperparathyroidim, Adrenal insufficiency , Humoral hypercalcemia of malignancy,Multiple Myeloma, Sarcoidosis. Patient has extensive family history of cancer. CT scan of the chest abdomen and pelvis shows the followin. Small bilateral pleural fluid collections. 2. Patchy airspace opacity in the left lower lobe compatible with aspiration, pneumonia or less likely neoplastic process. 3. Mediastinal, retroperitoneal, pelvic and bilateral inguinal lymphadenopathy highly suspicious for neoplastic process including lymphoma or metastatic disease. 4. Mass lesion in the expected region of the left adrenal gland which may represent retroperitoneal lymphadenopathy encroaching on the left adrenal gland or a mass arising from the left adrenal gland - We will consult general surgery for potential biopsy of a lymph node, likely inguinal, for diagnosis. Will also consult oncology as well. - Continue IV fluids saline diuresis, stop this morning and re-evaluate - Well check PTH and PTH related peptide - We will restrict calcium intake and encourage mobilization - Dr. Subramanian of nephrology has started calcitonin and is considering biphosphonate therapy. Discussed with Dr. Subramanian and appreciate his help and input. # Right lower extremity DVT - Start full dose therapeutic Lovenox as bridging therapy to other oral anticoagulant which I suspect will be Coumadin - VQ scan was ordered which showed intermediate probability of pulmonary embolism. As this was a mismatch defect I strongly suspect pulmonary embolism. # Subacute dyspnea with leg edema. Present on admission back secondary to pulmonary embolism secondary to right lower extremity DVT - Echocardiogram not remarkable - Cardiology evaluation as outpatient. - Continue full dose subcutaneous Lovenox # Acute Kidney injury. Present on admission Suspect secondary to pre renal azotemia due to hypovolemia. Rule out disease process such as Kidney stones or Multiple myeloma or other - avoid nephrotoxic insults - monitor urine output - Nephrology has been consulted and discussed case with Dr. Subramanian and appreciate his input. Stress with him today. # Given patient's hypercalcemia and possibly hypercoagulable state will need to rule out malignancy -Check tumor markers -Check CT scan of the chest abdomen and pelvis -Bone survey ordered which was negative for any lesions suggestive of multiple myeloma - Acetaminophen as needed for mild pain/fever/headache - Bowel regimen as needed - Antiemetic as needed Position: The patient will need to be here another 48-72 hours for the evaluation treatment of the above condition. Pain Evaluation: Adequate Pain Control GI Prophylaxis: Proton Pump Inhibitor VTE Prophylaxis: Sub-Q Enoxaparin, Theraputic Anticoag with Warfarin VTE Mechanical Devices: Intermittant Pneumatic CD Resuscitation Status: CPR: Attempt Resuscitation BradleyEros MD Nov 05, 2016 22:13
[2016-11-06] VITALS (13 sets, daily range): BP systolic 128–158; BP diastolic 6–94; PULSE 69–85; RESP 7–22; O2SAT 91–99
[2016-11-06] MEDS: LORazepam 1 mg Tablet PO PRN ×2 (00:11→22:17)
[2016-11-06] MEDS: Ondansetron 2 mg/mL 2 mL Inj IVPUSH PRN ×2 (01:01→11:29)
--- NOTE | 2016-11-06 02:23 | NUR ---
communication Pt. c/o inability to sleep and hospitalist notified and orders received.Ativan 1mg adm. at 0015 and eff.Nausea controlled with IVP zofran yet did have 1 small emesis thus far.VSS.Sats in the mid 90s on 2L.Denies pain.Sleeping soundly at this time and resting comfortably Will cont. to monitor..
[2016-11-06] MEDS: PREDNISOLONE 1% LEFT_EYE SCH ×4 (05:51→22:17)
[2016-11-06 06:06] LABS: BASOPHILS % (AUTO) 0.7 % (0-3); EOSINOPHILS % (AUTO) 1.3 % (0-5); MONOCYTES % (AUTO) 11.6 % (4-12); Mean Corpuscular Hemoglobin 26.8 pg (27.0-35.0); Mean Corpuscular Volume 85.4 fL (81-100); NEUTROPHILS % (AUTO) 80.9 % (40-74); Platelet Count 223 bil/L (150-400)
[2016-11-06 06:22] LABS: INR 1.05 ratio
[2016-11-06 06:25] LABS: Phosphorus 3.2 mg/dL (2.5-4.9)
[2016-11-06] MEDS: Pantoprazole 40 mg ER24 Tablet PO SCH (07:30)
[2016-11-06] MEDS: Potassium Chloride 20 mEq SR Tablet PO SCH ×2 (08:30→20:21)
--- NOTE | 2016-11-06 09:01 | NUR ---
[facility] signed [id number]
--- NOTE | 2016-11-06 09:04 | PCM.PHAPRO ---
Progress Date of Service: Nov 06, 2016 Persistent shortness of breathe Warfarin dosing per pharmacy Indication: DVT, possible PE Pertinent info: hypercalcemia, hypercoagulable state (possible malignancy), anticoagulated with Lovenox 70 mg daily (renally adjusted). INR goal: 2-3 (NEW START WARFARIN) Date -Nov 06-Nov INR 1.01 1.05 INR change 0.04 Warf Dose 5 XXXX INR is subtherapeutic. Give warfarin 5 mg PO today at 1700. Pharmacy to continue to monitor and dose warfarin daily. Thank you, Ambar Gustafson Pharmacist Ambar Gustafson Nov 06, 2016 09:04
[2016-11-06] MEDS: Calcitonin 200 unit/mL 2mL Inj IM SCH ×2 (10:01→20:21)
[2016-11-06] MEDS: Furosemide 10 mg/mL 4 mL Inj IVPUSH SCH (10:24)
--- NOTE | 2016-11-06 10:28 | CONS ---
[address] [address] CONSULTATION REPORT PATIENT: PAXTON WALKER : 1935 MR#: [id number] ADMIT: 11/03/2016 JOB ID: [id number] DATE OF SERVICE: 11/06/2016 SURGICAL CONSULTATION: CHIEF COMPLAINT/IDENTIFICATION: Dr. Paz has asked me to see this 81-year-old woman for consideration of lymph node biopsy. HISTORY OF PRESENT ILLNESS: The patient presented to the hospital with shortness of breath on November 03 in the evening and was found to have a pulmonary embolus. She was also noted to be hypercalcemic. These issues have been addressed including being placed on subcutaneous Lovenox and warfarin. Her last warfarin was yesterday at 5 p.m. and her last Lovenox was on November 05 at 1400. She had a chest, abdomen and pelvis CT that has demonstrated mediastinal, retroperitoneal and inguinal adenopathy. I am asked to see her for a tissue diagnosis. PAST MEDICAL HISTORY: 1. Chronic lower extremity edema. 2. Hypertension not on medication. HOME MEDICATIONS: Glucosamine, furosemide, eye drops. ALLERGIES: None. SOCIAL HISTORY: Negative tobacco. Negative daily alcohol. FAMILY HISTORY: Breast cancer. Diabetes. REVIEW OF SYSTEMS: Per admission history and physical. PHYSICAL EXAMINATION: Slender woman, in no acute distress, resting in her bed with her oxygen on. Lungs are clear. Heart sounds are regular. Abdomen is soft. She has palpable inguinal adenopathy right greater than left. LABORATORIES: INR today is 1.05. Chemistries show improving creatinine down to 1.55 and her calcium is down to 10.2, albumin is 3.0. IMPRESSION AND PLAN: Mediastinal, retroperitoneal and inguinal adenopathy suspicious for malignancy. Oncology consultation is pending. I have told her to be n.p.o. and I will hold her Lovenox in anticipation of a possible right inguinal lymph node biopsy versus laparoscopic retroperitoneal biopsy. We will obtain a tissue diagnosis as directed by Oncology.
--- NOTE | 2016-11-06 16:15 | PCM.HPANE ---
Patient Data Surgeon Admitting Provider:Sonny Zepeda MD Attending Provider:Sonny Zepeda MD Primary Care Physician:Sylvia Josue DO Other Provider: Reason for Visit Hypercalcemia, Progressive Angina HYPERCALCEMIA, PROGRESSIVE ANGINA Ht/WT & BMI Height (Feet): 5 Height (Inches): 6.00 Weight (Kilograms): 70.300 Body Mass Index 24.91 Allergies Coded Allergies: No Known Allergies (Unverified , 11/03/16) Diabetes History Hx Diabetes?: No MRSA MRSA: No Medications Reported Medications Ascorbic Acid (Vitamin C)250 Mg Tab.abug192 Mg PO DAILY 30 Days Ref 0 11/03/16 Aspirin 325 Mg [id number] Mg PO DAILY #1 BOTTLE 11/03/16 Multivit with Calcium,Iron,Min (Therapeutic M)1 Each Tablet1 Each PO DAILY 11/03/16 Potassium Gluconate 99 Mg Xgkvda14 Mg PO DAILY 11/03/16 Furosemide 40 Mg Kdfiso73 Mg PO DAILY States stopped taking bc vivian who wants to be an MD told her it may be reason pt is short of breath 11/03/16 Gluc 2Kcl/Chondr/Jt Hy/Hy AC (Glucosamine & Chondroitin Cap)1 Each Capsule1 Each PO DAILY 11/03/16 Calcium Carbonate 500 Mg/5 Ml Oral.puqc504 Mg PO DAILY 11/03/16 History History of ENT Problems?: Yes HEENT History: Positive for:: Cataracts Denies:: Sinus Problem Denture Type: Full- Upper Full- Lower Other HEENT Pertinent History: CORNEA [employer]PLANT Hx of Heart Problems?: Yes Cardiovascular History: Positive for:: Congestive Heart Failure (WAS ON LASIX) Heart Murmur Denies:: Hypertension Hx of Respiratory Problem?: Yes Respiratory History: Positive for:: Dyspnea (CURRENT) Denies:: Asthma COPD Chest Surgery Emphysema Hemoptysis Pneumonia Tuberculosis Hx Neurologic Problems?: No Hx of GI Problems?: No Hx of Problems?: No Female Hx: Denies:: Currently Endometriosis Pelvic Inflammatory Problems with Breasts? Hx Musculoskeletal Problems?: No Hx of Psycho/Social Problems?: No Hx Surgeries?: No Other History: Positive for:: Hospitalization (TO HAVE BABIES) Denies:: Cancer Thyroid Disease History Blood Transfusions: Positive for:: Accept Blood Products? Denies:: Blood Transfuse Reaction Blood Transfusions Hx Diabetes: No Hx Alcohol Use: NoHx Substance Use: No Smoking Status: Former Smoker Stop/Bang Treated for Sleep Apnea?: No Do You Have a CPAP Machine?: No S-Snoring: Do You Snore Loudly: Yes T-Tired: feel tired, fatigued: No O-Obsered: Observed not breath: No P-Blood Pressure: treated: No B- Body Mass Index > 35 kg/m2: No A- Age over 50: Yes N- Neck Large Circumference: No G- Gender Male: No TAWNYA Total Score: 1 Risk Assessment Category Category 1A: Patient has history of documented sleep apnea, and HAS NOT received any narcotic, sedative or anesthesia administration during this stay. Category 1B: Patient has history of documented sleep apnea, and HAS received any narcotic , sedative or anesthesia administration during this stay Category 2: Patient has SUSPECTED Obstructive Sleep Apnea, and HAS received any narcotic , sedative or anesthesia administration during this stay. Category 3: Patient has SUSPECTED Obstructive Sleep Apnea and HAS NOT received narcotic, sedative or anesthesia administration during this stay. Category 4: Outpatient in Procedural Areas with known sleep apnea or who screen positive for High Risk via the STOP/BANG questionnaire. Exam Exam Vital Signs Vital Signs Date Time Temp Pulse Resp B/P Pulse Ox O2 Delivery O2 Flow Rate FiO2 11/06/16 14:49 36.7 72 20 158/79 93 Nasal Cannula 1.50 11/06/16 08:15 Supplement Oxygen General Appearance: Oriented X3 HEENT/AIRWAY: MP 2 Lungs: Normal Air Movement Heart: Regular Rate/Rhythm Meds/Labs/Diagnostics Admission Meds Current Medications Warfarin Sodium (Coumadin) 5 mg ONCE ONCE PO Last administered on 11/05/16 17: 16; Start 11/05/16 at 17:00; Stop 11/05/16 at 17:01; Status DC Furosemide (Lasix Inj) 20 mg DAILY IVPUSH Last administered on 11/06/16 10:24; Start 11/06/16 at 08:30 Labs Test 11/03/16 15:37 11/03/16 19:15 11/03/16 21:50 11/04/16 05:00 Troponin T < 0.010ug/L (0.0-0.011) Pro-B-Type Natriuretic Peptide 782.2pg/mL (0-738) Thyroid Stimulating Hormone (TSH) 5.510uIU/mL (0.450-4.500) Free Thyroxine 1.21ng/dL (0.82-1.77) Hold Guzmán Top Tube Received (Received) Calcium (Send out) 13.1mg/dL (8.7-10.3) Parathyroid Hormone Interpretation Comment (.) Total Intact Parathyroid Hormone 10pg/mL (15-65) Urine Color Yellow (YELLOW) Urine Appearance Slightly cloudy Urine pH 6.0 (5.0-8.0) Urine Specific [place] 1.020 (1.003-1.035) Urine Protein Tracemg/dL (NEG,TRACE) Urine Glucose (UA) Negativemg/dL (NEGATIVE) Urine Ketones Negativemg/dL (NEGATIVE) Urine Occult Blood Negative (NEGATIVE) Urine Nitrite Negative (NEGATIVE) Urine Bilirubin Negative (NEGATIVE) Urine Urobilinogen Normalmg/dL (NORMAL) Urine Leukocyte Esterase Small (NEGATIVE) Urine RBC 0-2/hpf (0-2) Urine WBC 6-10/hpf (0-5) Urine Epithelial Cells Moderate/hpf (NONE-MOD) Urine Crystals Oxalic acid crystals (NONE Urine Bacteria Few/hpf (NONE-FEW) Urine Hyaline Casts 5/20/lpf (NONE) Urine Granular Casts None seen (NONE SEEN) Urine Waxy Casts None seen (NONE SEEN) Urine Red Blood Cell Casts None seen (NONE SEEN) Urine White Blood Cell Casts None seen (NONE SEEN) Urine Mucus Present (None Seen) Urine Trichomonas None seen (NONE SEEN) Urine Yeast None (NONE SEEN) Urinalysis Comment None Urine Culture Reflexed Indicated Test 11/04/16 17:47 11/05/16 06:00 11/06/16 05:40 Erythrocyte Sedimentation Rate 18mm/hr (0-40) Uric Acid 9.0mg/dL (2.6-7.2) Lactate Dehydrogenase 284U/L (100-190) Globulin (PEP) 3.3g/dL (2.2-3.9) Albumin/Globulin Ratio 0.9 (0.7-1.7) Ialub-4-Onluuvwyh 0.3g/dL (0.0-0.4) Koylx-8-Kxypmqqny 1.0g/dL (0.4-1.0) Beta Globulins 1.0g/dL (0.7-1.3) Gamma Globulins 1.1g/dL (0.4-1.8) Serum Monoclonal Protein Not observedg/dL Protein Electrophoresis Comment Comment (.) Protein Electrophoresis Interpret Comment (.) CA 15-3 Antigen 21.6U/mL (0.0-25.0) CA 19-9 Antigen 5U/mL (0-35) CA 125 Antigen 43.3U/mL (0.0-38.1) White Blood Count 6.1th/mm3 (3.8-10.1) Red Blood Count 3.69mil/mm3 (3.90-5.20) Hemoglobin 9.9g/dL (12.0-15.6) Hematocrit 31.5% (35.0-46.0) Mean Corpuscular Volume 85.4fL (81-100) Mean Corpuscular Hemoglobin 26.8pg (27.0-35.0) Mean Corpuscular Hemoglobin Concent 31.4% (32.0-37.0) Red Cell Distribution Width 13.4% (12.3-15.4) Platelet Count 223bil/L (150-400) Neutrophils (%) (Auto) 80.9% (40-74) Lymphocytes (%) (Auto) 5.2% (14-46) Monocytes (%) (Auto) 11.6% (4-12) Eosinophils (%) (Auto) 1.3% (0-5) Basophils (%) (Auto) 0.7% (0-3) Prothrombin Time 11.2sec (8.1-12.5) Prothromb Time International Ratio 1.05ratio Sodium Level 144mEq/L (134-144) Potassium Level 3.8mEq/L (3.5-5.2) Chloride Level 106mEq/L (97-108) Carbon Dioxide Level 26mmol/L (18-29) Blood Urea Nitrogen 36mg/dL (8-27) Creatinine 1.55mg/dL (0.57-1.00) Estimat Glomerular Filtration Rate 46mL/min (>59) Glucose Level 85mg/dL (60-99) Calcium Level 10.2mg/dL (8.5-10.1) Phosphorus Level 3.2mg/dL (2.5-4.9) Magnesium Level 2.0mg/dL (1.6-2.6) Total Bilirubin 0.2mg/dL (0.0-1.2) Aspartate Amino Transf (AST/SGOT) 17U/L (0-50) Alanine Aminotransferase (ALT/SGPT) 9U/L (0-32) Alkaline Phosphatase 51U/L (25-165) Total Protein 5.5g/dL (6.4-8.4) Albumin 3.0g/dL (3.4-5.0) Plan Impression Patient chart reviewed, patient interviewed and anesthestic plan with risks, benefits, and alternatives discussed, and informed consent obtained. ASA Physical Status: ASA3 Severe Disease Anesthetic Plan: MAC Bene/Risks/Altern/Consents: Yes HP Complete Prior to Induction: Yes Mert Muñiz MD Nov 06, 2016 16:15
[2016-11-06] MEDS ORDERED: Lactated Ringer's 1,000 ML IV ONE (16:33)
[2016-11-06] MEDS ORDERED: Lidocaine 1%-Epi 1:100,000 20 mL Inj NERVEBLOCK ONE (16:52)
[2016-11-06] MEDS ORDERED: Lactated Ringer's 1,000 ML IV SCH (17:13)
[2016-11-06] MEDS ORDERED: Lactated Ringer's 500 ML IV PRN (17:13)
[2016-11-06] MEDS ORDERED: fentaNYL-PF 50 mCg/mL 2 mL Inj IVPUSH PRN (17:15)
[2016-11-06] MEDS ORDERED: Dexamethasone 4 mg/mL Inj IVPUSH PRN (17:15)
[2016-11-06] MEDS ORDERED: Ondansetron 2 mg/mL 2 mL Inj IVPUSH PRN (17:15)
[2016-11-06] MEDS ORDERED: EPHEDrine Sulfate 50 mg/mL Inj IVPUSH PRN (17:15)
[2016-11-06] MEDS ORDERED: MetoCLOpramide 5 mg/mL 2 mL Inj IVPUSH PRN (17:15)
[2016-11-06] MEDS ORDERED: Phenylephrine 10,000 mCg/mL Inj IVPUSH PRN (17:15)
--- NOTE | 2016-11-06 17:42 | PCM.ANEP1 ---
Post Anesthesia Phase 1 PACU Phase 1 Assessment Date of Service: Nov 06, 2016 Vital Signs Vital Signs Date Time Temp Pulse Resp B/P Pulse Ox O2 Delivery O2 Flow Rate FiO2 11/06/16 17:25 74 15 136/66 98 Simple Mask 10 11/06/16 17:20 36.9 73 16 128/94 99 Simple Mask 10 11/06/16 14:49 36.7 72 20 158/79 93 Nasal Cannula 1.50 Anesthetic Administered: GA Level of Alertness: Awake, talking Pain: No Lungs: Normal Air Movement Mert Muñiz MD Nov 06, 2016 17:42
--- NOTE | 2016-11-06 17:42 | PCM.ANEP2 ---
Post Anesthesia Evaluation ASA/CMS Post Anesthesia VS in Patient's Normal Range?: Yes Resp Stable; Airway Patent?: Yes CV Function & Hydration Stable: Yes Mental Status Recovered?: Yes Pain control Satisfactory?: Yes N/V Control Satisfactory?: Yes Mert Muñiz MD Nov 06, 2016 17:42
[2016-11-06] MEDS ORDERED: HYDROcodone-APAP 5-325 mg Tablet PO PRN (18:10)
--- NOTE | 2016-11-06 19:26 | CONS ---
[address] [address] CONSULTATION REPORT PATIENT: PAXTON WALKER : 1935 MR#: [id number] ADMIT: 11/03/2016 JOB ID: [id number] DATE OF SERVICE: 11/06/2016 REFERRING PROVIDER: Eros Paz MD REASON FOR REFERRAL: A 81-year-old woman in hospital for general recent physical decline, DVT with PE, and CT scan showing extensive mediastinal, retroperitoneal, pelvic, and inguinal adenopathy. DIAGNOSES: 1. Suspect metastatic disease or lymphoma involving mediastinal, retroperitoneal, pelvic, and inguinal lymph nodes, with bulky retroperitoneal disease. 2. The patient is in the hospital for progressive dyspnea and physical decline with right leg edema and found to have a right superficial femoral occlusive thrombosis and popliteal DVT November 04, 2016, and a matched perfusion defect in the anterior segment of the right upper lobe, intermediate probability of pulmonary embolism, November 04, 2016. The patient could not receive IV contrast for a CT angiogram. 3. The patient was admitted for acute kidney injury with severe hypercalcemia. The creatinine on admission was 2.22 and has corrected to 1.55. The calcium on admission was 16 and corrected to the current value of 10.2. 4. The hypercalcemia was of concern for metastatic disease or lymphoma. CA15-3 was normal. CA19-9 was normal. CA125 was somewhat elevated at 43.3. 5. Complete bone survey showed no evidence of myeloma and serum protein electrophoresis was negative for monoclonal spike. 6. The patient is otherwise without much medical history as described below. HISTORY OF PRESENT ILLNESS: The patient herself describes the events leading to her admission on November 03 as developing progressive shortness of breath for somewhere between one week and one month. 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 She also complained of right leg swelling and was admitted for these symptoms and the findings of renal failure and hypercalcemia. The hypercalcemia and renal insufficiency were partially corrected with IV hydration. The patient was evaluated for PE and a V/Q scan was done which showed intermediate probability of PE and she is now on anticoagulation and did show a DVT in the right lower extremity as described above. In an effort to identify a cause of her hypercalcemia, she was evaluated with a metastatic bone survey which was negative and an SPEP which was negative for monoclonal protein. She also had tumor markers done as described above. Her calcium corrected nicely and the creatinine improved as well. Part of the workup included a chest, abdomen, and pelvis CT scan for hypercalcemia and possible hypercoagulable state. This showed small bilateral pleural effusions, patchy airspace opacity in the left lower lobe, mediastinal, retroperitoneal, pelvic, and bilateral inguinal adenopathy suspicious for neoplasm, either metastatic disease or lymphoma, and a mass lesion in the left adrenal gland which may represent regional lymphadenopathy or mass arising from the left adrenal. The patient was referred to Medical Oncology and to Surgery and Dr. Haro of surgery has planned to biopsy a palpable inguinal node. PAST MEDICAL HISTORY: As reported by the patient: She states she has never been in the hospital before except for childbirth. She had a cornea transplant and has had prior cataract surgery. 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 She is G 5, P 5, AB zero. Additional past history from H and P: Elevated blood pressure. HABITS: The patient smoked in her 20s, perhaps a little over 10 years. Quit 51 years ago. She is a nondrinker. ALLERGIES: Reports no allergies. SOCIAL HISTORY: She has been for 10 years. She has lived in [facility] for , previously in [place]. Moved from [facility] to [place] in 1963. She lives alone and takes care of all of her own affairs. She is retired from odd jobs, including office work. She has a very active life. She volunteers with 8 different organizations, including working at a [employer] for the [employer]. Up until recently she has been able to all that volunteer work. FAMILY HISTORY: Her father with cancer at 72. Mother with cancer in her 80s. She does not know what kind of cancer. She has three sisters whose health history is not well known and one brother who has had complications of ETOH and smoking. The patient has two sons, one is well and one has fractured his back, and two daughters are well, and one daughter with cancer of the uterus and breast she states. The patient states she would never take chemotherapy because of the experience her daughter went through with that cancer for two years and ultimately from it. She has understandably still distraught and grieving about her daughter's which happened several years ago. REVIEW OF SYSTEMS: Generally she has states that she has been declining in health, at least in the past one week to one month. In addition to the shortness of breath, weakness, fatigue, and right leg swelling, she has had no fevers, chills, night sweats, or weight loss. Head and neck: No headaches, visual changes, stroke, seizure, loss of consciousness, dry or sore mouth, or eyes. Lymph nodes: The patient is unaware of any lymphadenopathy. Respiratory: As described in the H and P. Cardiac: No exertional chest pain or palpitations. GI: No nausea, although in the hospital here she asked for a nausea bag. No diarrhea and no change in eating habits. : No dysuria, hematuria, or other lower urinary tract symptoms. Musculoskeletal: Except for the right leg edema, she has no other musculoskeletal complaints. Skin: No rashes or pruritus. The remainder of the 14-system review is negative. PHYSICAL EXAMINATION: Height 167.64 cm, weight 17.3 kg. BSA 1.82 m2, BMI 25.0 kg/m2. Temperature is 36.7, pulse 72, respiratory 20, blood pressure 158/79, pulse ox 93% on 1.5 L. She is not wearing the O2 right now. Head and neck: Normal skin and hair. Pupils equal, round, and reactive. No icterus. No conjunctivitis. Oral mucosa is dry, with apparent thrush. No other lesions. Teeth are in fair repair. Neck: Supple, without thyromegaly. Lymph nodes: Negative in the neck, supraclavicular, axillary, and inguinal areas, except for a palpable 1-1.5 cm right inguinal node which is firm. Lung quarles show a few scattered rhonchi, otherwise clear to auscultation anteriorly and posteriorly. Cardiac: Rhythm is regular, without murmur or peripheral edema. Abdomen: Soft, nontender. No masses or organomegaly. Extremities: Show one to 2+ edema right lower extremity. None on the left. She has bilateral SCDs in place. Skin: Shows normal turgor and color. LABORATORY VALUES: The white count is 6.1, hemoglobin 9.1, and 9.9, hematocrit 31.5, platelets 223. The BUN and creatinine 36 and 1.55. Electrolytes normal. Calcium 10.2. ALT, AST, alkaline phosphatase, and bilirubin normal. Albumin 3.0. IMAGING: CT as discussed above, was reviewed with the patient. She has already looked at the images. ASSESSMENT AND RECOMMENDATIONS: This is a very pleasant 81-year-old woman admitted with thrombosis very possibly related to her recent decline in physical condition and recent immobilization. However, it is hard to know whether her pulmonary embolism and deep venous thrombosis were really precipitated based on her history since part of her immobilization was related to dyspnea, so the pulmonary embolism may have predated the immobilization. The oncologic question is to diagnose the etiology of her lymphadenopathy. 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 This would also potentially explain her other illnesses including her thrombosis and hypercalcemia. Metastatic disease is also in the differential diagnosis. Dr. Haro has kindly agreed to perform a lymph node biopsy today. I explained to the patient that it is too early to say whether this is malignancy, but that there is a very strong possibility that it is. It could be a low-grade malignancy that does not require immediate treatment or it could be something more aggressive and that we will simply need to assess her as time goes on and see what the biopsy shows. She is in full agreement with proceeding forward. Will discuss with the Dr. Haro and Dr. Paz the results when available. I appreciate being asked to see this patient.
--- NOTE | 2016-11-06 19:35 | NUR ---
Nausea/vomiting/biopsy Patient with n/v today despite antiemetics. patient taking very little Po intake when allowed on diet. Pt was NPO for biopsy of lymph nodes today from right groin site. Patient new back , resting in bed but still having waves of intermittent nausea. Right groin site with dressing cdi. Pt instructed to call for assistance to get up from bed and agreed to doing this.
[2016-11-06] MEDS: 0.9% NaCl + KCl 20 mEq/L 1,000 ML IV SCH (20:21)
--- NOTE | 2016-11-07 00:22 | PCM.PNMED ---
Subjective Date of Service Nov 07, 2016 Subjective Patient does still feeling nauseous today and has very little appetite. Uterine the day she was feeling a little bit better. Exam Vital Signs Vital Sign - Last Date Time Temp Pulse Resp B/P Pulse Ox O2 Delivery O2 Flow Rate FiO2 11/06/16 22:21 Supplement Oxygen 11/06/16 20:00 70 11/06/16 19:54 36.6 20 148/71 93 2.00 Intake and Output 11/06/16 11/06/16 11/07/16 Cumulative From/Thru 15:00 23:00 07:00 11/03/16 14:14 - 11/06/16 18:32 Intake Total 810 ml 6344 ml Output Total 1250 ml 5900 ml Balance -440 ml 444 ml Intake Oral 400 ml 2640 ml IV Total 410 ml 3704 ml Output Urine Total 1250 ml 5800 ml Emesis 100 ml # Voids 10 # Bowel Movements 0 Exam General: Patient appears ill and nauseous holding an emesis bag. She otherwise is resting comfortably in bed with her head elevated at approximate 30. HEENT: Head is atraumatic and normocephalic. Eyes: Pupils are equally round and reactive to light and accommodation. Extraocular muscles are intact. Sclera are white, anicteric. Subconjunctival mucosa is pink. Ears and nose are unremarkable. Oropharynx: There is no mucosal lesions, there is no thrush, there is no pharyngitis. Neck: Is supple, there are no nodes, or masses or tenderness. Chest: The patient has rales in the left lower lobe. However, the left lower lobe is much clearer than yesterday There are no wheezes rhonchi or rubs. Heart: Rate, rhythm is regular. There is no murmur, rub or gallop. Abdomen: Good bowel sounds are present. Abdomen is soft, nontender, no organomegaly or masses were appreciated. Extremities: Are symmetrical and well perfused. There is less pitting edema with right leg slightly greater in size than left leg. There is no cellulitis, no rash. Neurologic: There are no focal neurological deficits. Cranial nerves II through XII are intact. There are no sensory or motor deficits. Psychiatric: Patients mood is calm and she shows no sign of agitation. Genital: Deferred Rectal: Deferred Lab and Diagnostics Result Diagram: 11/06/16 0540 11/06/16 0540 Microbiology Name: MARLEEN NEIL Age/Sex: 81/F Attend Dr: Sonny Zepeda MD Acct: [id number] Unit: [id number] Status: ADM IN Location: [facility] [place] 1017-1 Re11/03/16 Disch: Specimen: [id number] Collected: 11/03/16 Status: RES Req#: [id number] Received: 11/03/16 Source: URINE JONES Siddiqi Desc : LAURI Cavanaugh Dr: YOEL WHITMORE MD Ordered: URINE CULT Procedure Result Verified Site Microbiology PUJA CULT URINE Preliminary 11/04/16-0836 No growth to date X-Rays, CTs and MRIs X-RAY CHEST ONE VIEW, PORTABLE 11/03 IMPRESSION: No acute cardiopulmonary abnormality Dictated by: Jewel Deshpande M.D. on 11/03/2016 at 15:56 Approved by: Jewel Deshpande M.D. on 11/03/2016 at 15:57 PROCEDURE: NM LUNG VQ RADIOPHARMACEUTICAL: 26.8 mCi Tc-99m DTPA aerosol by inhalation and 5.48 mCi Tc- 99m MAA intravenously. INDICATIONS: DVT with shortness of breath and hypoxia TECHNIQUE: Ventilation images were obtained first with Tc-99m DTPA aerosol. Subsequently, perfusion images were acquired after intravenous injection of Tc-99m MAA. Anterior, posterior, GOMEZ, SINHALA, RPO, LPO, left and right lateral views were obtained. COMPARISON: [facility], CR, XR CHEST 2VW, 11/04/2016, 17:31. FINDINGS: An unmatched perfusion defect is present within the anterior segment of the right upper lobe. No other perfusion/ventilation defects visualized. IMPRESSION: 1. Unmatched perfusion defect within the anterior segment of the right upper lobe. No associated abnormality is visualized on the plain film from the same date. No other perfusion defects or ventilation defects. This suggests an intermediate probability of pulmonary embolus. Dictated by: Nila Last M.D. on 11/04/2016 at 21:10 Approved by: Nila Last M.D. on 11/04/2016 at 21:18 PROCEDURE: X-RAY COMPLETE BONE SURVEY ([id number]) INDICATIONS: hypercalcemia, RULE OUT MYELOMA TECHNIQUE: Multiple views obtained of various bony structures as described below. COMPARISON: None. FINDINGS: Skull (lateral): No suspicious bony lesions. No fractures. Thoracic spine (AP, lateral): Bones are osteopenic. No suspicious bony lesions. No acute vertebral body compression fractures. There are moderate degenerative changes including intervertebral disc space narrowing and osteophytosis. Lumbar spine (AP, lateral): Bones are osteopenic. No suspicious bony lesions. No acute vertebral body compression fractures. There is grade I L5 on S1 anterolisthesis. Moderate facet sclerosis is present within the lower lumbar spine. Pelvis (AP): No suspicious bony lesions. No fractures. Overlying soft tissues appear unremarkable. Right and left humeri (AP): No suspicious bony lesions. No fractures. Overlying soft tissues appear unremarkable. Right and left femurs (AP): No suspicious bony lesions. No fractures. Overlying soft tissues appear unremarkable. IMPRESSION: 1. No lytic lesions to suggest multiple myeloma. 2. No acute fracture dislocation. 3. Diffuse osteopenia and degenerative changes of the thoracolumbar spine. Dictated by: Nila Last M.D. on 11/04/2016 at 21:19 Approved by: Nila Last M.D. on 11/04/2016 at 21:21 PROCEDURE: US RENAL SONOGRAM INDICATIONS: rule out kidney stones TECHNIQUE: Real-time scanning was performed of the kidneys and bladder, with image documentation. COMPARISON: [facility], CT, KUB - CT (ABD/PEL W/O CONT), 10/02/2010 , 23:32. FINDINGS: Kidneys: Kidneys are normal in size. Right kidney measures 11.7 cm long; left kidney measures 11.4 cm long. Right renal cortical thickness is 1.5 cm; left renal cortical thickness is 1.6 cm. Renal cortical echotexture is normal. No hydronephrosis or nephrolithiasis. Mild left renal pyelectasis. No suspicious solid mass lesions. Bladder: Pre-void bladder volume is 296 mL. Post-void residual is 96 mL. Pre- void images demonstrate no intraluminal masses or stones. On pre-void images, there ureteral jets are noted with color Doppler interrogation. (Of note, ureteral jets may not be detectable in up to 25% of cases due to insufficient differences in specific gravity between ureteral and bladder urine). Miscellaneous: No free pelvic fluid. IMPRESSION: 1. No visible stones seen bilaterally. 2. Mild left renal pyelectasis. 3. 96 cc PVR. Dictated by: Jose M HOLGUIN Interpreted: Neela Oseguera MD on 11/04/2016 at 11: 56 Transcribed by: CHRISTIANO on 11/04/2016 at 11:58 PROCEDURE: CT CHEST, ABDOMEN AND PELVIS WITHOUT CONTRAST ([id number]) INDICATIONS: HYPERCALCEMIA, POSSIBLE HYPERCOAGULABLE STATE TECHNIQUE: After the administration of oral contrast, 5 mm thick sections acquired from the lung apices to the symphysis pubis. 5 mm thick coronal and sagittal reformats acquired, with additional 7 mm coronal MIP reformats through the lungs. For radiation dose reduction, the following was used: automated exposure control, adjustment of mA and/or kV according to patient size. COMPARISON: None. FINDINGS: Image quality: Excellent. CHEST: Lungs and pleura: Small bilateral pleural fluid collections are noted. Patchy airspace opacities noted in the left lung base nonspecific finding may represent pneumonia, aspiration or less likely neoplastic process. Central and peripheral airways are patent are normal in caliber. Mediastinum: Heart size is normal. No pericardial effusion. There is a 2.0 cm short axis superior mediastinal/left paratracheal lymph node. Thoracic aorta and central pulmonary arteries are normal in size. Esophagus is normal in caliber. No hiatal hernia. Chest wall: No axillary or supraclavicular adenopathy by size criteria. Thyroid gland is within normal limits where visualized. ABDOMEN: Solid organs: Liver and spleen are normal in size. Gallbladder is within normal limits. Pancreas is normal in contours. Right adrenal gland is normal in appearance. Mass is noted in the expected region of the left adrenal gland which could be related to lymphadenopathy versus a mass arising from the left adrenal gland. Both kidneys are normal in size, without hydronephrosis or nephrolithiasis. Peritoneum and bowel: Small and large bowel loops are normal in caliber and wall thickness. No free fluid or air. Nodes and vessels: Bulky periaortic retroperitoneal lymphadenopathy is noted. There is a 1.8 cm short axis right internal iliac lymph node. There is a 1.2 cm in short axis left common iliac node. Enlarged bilateral inguinal lymph nodes are noted. Largest right inguinal lymph node measures 1.3 cm in short axis. Largest left inguinal lymph node measures 1.1 cm in short axis. Aorta and inferior vena cava are normal in size. Miscellaneous: No ventral hernias. PELVIS: Genitourinary: Bladder wall thickness is normal. Miscellaneous: No inguinal hernias or adenopathy. Bones: No suspicious bony lesions. No vertebral body compression fractures. IMPRESSION: 1. Small bilateral pleural fluid collections. 2. Patchy airspace opacity in the left lower lobe compatible with aspiration, pneumonia or less likely neoplastic process. 3. Mediastinal, retroperitoneal, pelvic and bilateral inguinal lymphadenopathy highly suspicious for neoplastic process including lymphoma or metastatic disease. 4. Mass lesion in the expected region of the left adrenal gland which may represent retroperitoneal lymphadenopathy encroaching on the left adrenal gland or a mass arising from the left adrenal gland. Dictated by: Manju Neumann MD, PhD on 11/05/2016 at 16:27 Approved by: Manju Neumann MD, PhD on 11/05/2016 at 16:42 Cardiac Echo Impressions Echocardiogram Report Name: MARLEEN NEIL GStudy Date : 11/04/2016 Height: 66 in Hospital Exam Location: [facility] Weight: 155 lb Gender: Female BSA: 1.8 m2 : 1935 Age: 81 yrs BP: 140/69 mmHg Reason For Study: EDEMA, DYSPNEA Ordering Physician: HOSPITALIST [facility] Performed By: Juan Box Referring Physician: Adam BAEZA Interpretation Summary The left ventricle is normal in size. The ejection fraction is estimated to be 60-65%. There is mild to moderate tricuspid regurgitation. The right ventricular systolic pressure is estimated at 47 mmHg assuming a right atrial pressure of 3 mm Hg. The ascending aorta is moderately enlarged. Assessment & Plan Marleen Neil is a 81 year old female with Chronic leg edema of Lasix who presents to [facility] emergency department from Urgent Care with worsening exertion dyspnea # Acute Hypercalcemia. Present on admission Etiology includes Primary or Secondary hyperparathyroidim, Adrenal insufficiency , Humoral hypercalcemia of malignancy,Multiple Myeloma, Sarcoidosis. Patient has extensive family history of cancer. CT scan of the chest abdomen and pelvis shows the followin. Small bilateral pleural fluid collections. 2. Patchy airspace opacity in the left lower lobe compatible with aspiration, pneumonia or less likely neoplastic process. 3. Mediastinal, retroperitoneal, pelvic and bilateral inguinal lymphadenopathy highly suspicious for neoplastic process including lymphoma or metastatic disease. 4. Mass lesion in the expected region of the left adrenal gland which may represent retroperitoneal lymphadenopathy encroaching on the left adrenal gland or a mass arising from the left adrenal gland - We have consulted general surgeon Dr. Haro for potential biopsy of a lymph node, likely inguinal, for diagnosis. We have also consult Dr. Xie of oncology as well. - Continue IV fluids saline diuresis, stop this morning and re-evaluate - Well check PTH and PTH related peptide - We will restrict calcium intake and encourage mobilization - Dr. Subramanian of nephrology has started calcitonin and is considering biphosphonate therapy. Discussed with Dr. Subramanian and appreciate his help and input. # Right lower extremity DVT - Start full dose therapeutic Lovenox as bridging therapy to other oral anticoagulant which I suspect will be Coumadin - VQ scan was ordered which showed intermediate probability of pulmonary embolism. As this was a mismatch defect I strongly suspect pulmonary embolism. # Subacute dyspnea with leg edema. Present on admission back secondary to pulmonary embolism secondary to right lower extremity DVT - Echocardiogram not remarkable - Cardiology evaluation as outpatient. - Continue full dose subcutaneous Lovenox # Acute Kidney injury. Present on admission Suspect secondary to pre renal azotemia due to hypovolemia. - Continue to avoid nephrotoxic insults - Continue to monitor urine output - Nephrology has been consulted and discussed case with Dr. Subramanian and appreciate his input. I discussed case with him again today. # Given patient's hypercalcemia and possibly hypercoagulable state will need to rule out malignancy -Check lymph node biopsy results - Acetaminophen as needed for mild pain/fever/headache - Bowel regimen as needed - Antiemetic as needed Position: The patient will need to be here another 48-72 hours for the evaluation treatment of the above condition. Pain Evaluation: Adequate Pain Control GI Prophylaxis: Proton Pump Inhibitor VTE Prophylaxis: Sub-Q Enoxaparin, Theraputic Anticoag with Warfarin VTE Mechanical Devices: Intermittant Pneumatic CD Resuscitation Status: CPR: Attempt Resuscitation Eros Paz MD Nov 07, 2016 00:21
[2016-11-07 00:50] VITALS: BP 135/64; PULSE 81; RESP 20; O2SAT 92
--- NOTE | 2016-11-07 01:10 | OP ---
[address] [address] OPERATIVE REPORT PATIENT: PAXTON WALKER : 1935 MR#: [id number] ADMIT: 11/03/2016 JOB ID: [id number] DATE OF SURGERY: 11/06/2016 PREOPERATIVE DIAGNOSIS(ES): Lymphadenopathy. POSTOPERATIVE DIAGNOSIS(ES): Lymphadenopathy. PROCEDURE: Right inguinal lymph node biopsy. SURGEON: Wallace Haro MD. VP & GENERAL COUNSEL: Karson Simms PA-C. Please note that a surgical instrument maker was medically necessary for retraction and suctioning, as well as wound closure. INDICATIONS: This is a 81-year-old female with hypercoagulable state, hypercalcemia and adenopathy extending from mediastinum down to the bilateral groins, right greater than left. She presents for right groin lymph node biopsy. FINDINGS: See below. PROCEDURE: Patient was brought to the operating room. SCOAP protocol was followed. Surgical time-out was performed. The right groin was prepped and draped in sterile fashion. She received intravenous sedation and local anesthetic was instilled tension over the palpable right groin lymph nodes. Dissection was carried down to the superficial groin nodes that were at the level above and superficial to the inguinal ligament. A large chain was dissected free, clipped on one side and divided with a clamp and a stick tie on the other side. Specimen was sent to pathology fresh for flow studies and all appropriate studies. We irrigated out the wound, checked for hemostasis, closed in two layers. Dry dressing was applied. The patient tolerated the procedure well. Her anticoagulation will be restarted postoperatively.
[2016-11-07 05:03] VITALS: BP 138/66; PULSE 78; RESP 20; O2SAT 93
[2016-11-07] MEDS: PREDNISOLONE 1% LEFT_EYE SCH ×4 (05:56→22:14)
[2016-11-07 06:25] LABS: BASOPHILS % (AUTO) 0.5 % (0-3); EOSINOPHILS % (AUTO) 1.7 % (0-5); MONOCYTES % (AUTO) 12.8 % (4-12); Mean Corpuscular Hemoglobin 26.6 pg (27.0-35.0); Mean Corpuscular Volume 86.3 fL (81-100); NEUTROPHILS % (AUTO) 80.9 % (40-74); Platelet Count 225 bil/L (150-400)
--- NOTE | 2016-11-07 06:35 | NUR ---
Unsteady Pt was unsteady with TERRITORY SALES REPRESENTATIVE in the bathroom. This was after pt received Ativan for sleep and had been resting.
[2016-11-07 06:44] LABS: Magnesium 1.5 mg/dL (1.6-2.6)
[2016-11-07 06:53] LABS: INR 1.47 ratio
[2016-11-07 08:00] VITALS: PULSE 68
[2016-11-07] MEDS ORDERED: Potassium Chloride 20 mEq SR Tablet PO ONE (09:00)
[2016-11-07] MEDS ORDERED: Magnesium Sulf 4 Gm/100 mL H2O 4 GM in IV Premix 1 EACH IV ONE (09:00)
--- NOTE | 2016-11-07 10:43 | PCM.PHAPRO ---
Progress Date of Service: Nov 07, 2016 Persistent shortness of breath Warfarin dosing per pharmacy Indication: DVT, possible PE Pertinent info: hypercoagulable state (possible malignancy), anticoagulated with Lovenox 70 mg daily (renally adjusted). INR goal: 2-3 (NEW START WARFARIN) Date 1-Nov 2-Nov 07-Nov INR 1.01 1.05 1.47 INR change 0.04 0.42 Warf Dose 5 5 XXXXX INR is subtherapeutic but trending up as expected. Give warfarin 5 mg PO today at 1700. Pharmacy to continue to monitor and dose warfarin daily. Thank you, Ambar Gustafson Pharmacist Ambar Gustafson Nov 07, 2016 10:43
[2016-11-07] MEDS: Furosemide 10 mg/mL 4 mL Inj IVPUSH SCH (11:35)
[2016-11-07] MEDS: Potassium Chloride Inj 40 MEQ in 0.9% Sodium Chloride 1,000 ML IV SCH (11:43)
[2016-11-07] MEDS: Pantoprazole 40 mg ER24 Tablet PO SCH (11:48)
[2016-11-07] MEDS: Calcitonin 200 unit/mL 2mL Inj IM SCH ×2 (11:51→23:20)
[2016-11-07 12:07] VITALS: BP 146/83; PULSE 69; RESP 20; O2SAT 93
[2016-11-07] MEDS ORDERED: Magnesium Sulf 2 Gm/50mL Water 2 GM in IV Premix 1 EACH IV ONE (12:30)
[2016-11-07 13:54] VITALS: BP 153/82; PULSE 71; RESP 19; O2SAT 99
--- NOTE | 2016-11-07 14:11 | PCM.PNSURG ---
Subjective Date of Service: Nov 07, 2016 Visit Information: Reason for Visit Hypercalcemia, Progressive Angina Surgery/Surgery Date Post-Op Day #1 Date of Admission: Nov 03, 2016 at 20:09 Hospital Day # Subjective: Minimal discomfort at surgical site with movement, no need for analgesic. Postop General: No Complaints Pain Management: No or Minimal Pain Objective Vital Sign- Last 8 Hours Date Time Temp Pulse Resp B/P Pulse Ox O2 Delivery O2 Flow Rate FiO2 11/07/16 13:54 36.6 71 19 153/82 99 Nasal Cannula 2.00 11/07/16 12:07 36.6 69 20 146/83 93 Room Air 11/07/16 08:00 68 Intake and Output- Last 8 Hour 11/07/16 Cumulative From/Thru 06:59 11/03/16 14:14 - 11/07/16 06:35 Intake Total 869 ml 7213 ml Output Total 1750 ml 7650 ml Balance -881 ml -437 ml Intake Oral 400 ml 3040 ml IV Total 469 ml 4173 ml Output Urine Total 1750 ml 7550 ml Emesis 100 ml # Voids 10 # Bowel Movements 0 0 General: Alert, Cooperative, No Acute Distress Lungs: Clear to Auscultation Heart: Regular Rate/Rhythm SURGICAL WOUND : Wound General Appearence: Steri Strips, Sutures, Intact, Well Approximated, No Erythema, Other (minimal serosanguineous discharge) Neuro: Normal Speech Catheters: None Result Diagram: 11/07/16 0558 11/07/16 0558 Assessment & Plan Impression Primary diagnosis: Lymphadenopathy. POD #1 following right inguinal lymph node biopsy with stable wound, intact wound closure. Other diagnoses: 1. Chronic lower extremity edema 2. Hypertension 3. Former cigarette smoker Problems: Plan As per the hospitalist service. VTE Prophylaxis: Sub-Q Enoxaparin, Theraputic Anticoag with Warfarin Resuscitation Status: CPR: Attempt Resuscitation Karson Simms PA-C Nov 07, 2016 14:11
[2016-11-07] MEDS ORDERED: MetoCLOpramide 5 mg/mL 2 mL Inj ONE (14:41)
[2016-11-07] MEDS ORDERED: Propofol 10,000 mCg/mL 20 mL Inj ONE (14:41)
[2016-11-07] MEDS ORDERED: Ondansetron 2 mg/mL 2 mL Inj ONE (14:41)
--- NOTE | 2016-11-07 14:53 | NUR ---
NUTRITION ASSESSMENT Assess: 81 yo F w/ acute hypercalcemia, rt lower DVT, and JODY. Pt started on Coumadin. Pt w/ poss new cancer diagnosis. Pt having poor PO intake. She tells me she has been feeling very nauseous but that is improving. Despite the improvement in nausea she does not feel interested in eating. PMHx: Chronic lower extremity edema, Elevated BP LABS: Reviewed. Na 148, K 3.4, BUN 37, Cr 1.32, Mg 1.5 MEDICATIONS: Reviewed. Coumadin, Zofran, Lasix DIET: Heart Healthy, PO refused-75% NUTRITION FOCUSED PHYSICAL ASSESSMENT: GI symptoms/stool: No BM recordedBraden: 17 Skin integrity: No issues noted Overall Appearance: Elderly woman sitting at edge of bed, swelling in lower legs - no signs of wasting ANTHROPOMETRICS: Current Wt: 70.3 kgBMI: 25 kg/i6Qmvln Wt: 70.4 kg IBW: 59.1 kgRecent wt changes: None noted ESTIMATED NEEDS: Calories: 8978-4955 kcal/d (25-30 kcal/kg/d) Protein: 70-85 g/d (1-1.2 g/kg/d) NUTRITION DIAGNOSIS: 1) Inadequate oral intake related to GI upset as evidenced by nausea and poor PO intake. INTERVENTION: 1) Discussed importance of adequate protein/calorie intake 2) Will send Dumas Gelatein BID and Ensure Clear TID 3) Encouraged small frequent meals w/ good source of protein at home MONITOR/EVALUATE: PO intake, Labs, Wt, Nutrition status, POC. Will follow per moderate nutrition risk guidelines.
--- NOTE | 2016-11-07 15:53 | PCM.PNMED ---
Subjective Date of Service Nov 07, 2016 Subjective Patient's renal function is approaching normal with a creatinine of 1.38 today. Her serum calcium is 9.8. In light of her improving renal function will go ahead and sign off of her case. Please notify me of any questions or any change in the patient's condition. Exam Vital Signs Vital Sign - Last Date Time Temp Pulse Resp B/P Pulse Ox O2 Delivery O2 Flow Rate FiO2 11/07/16 13:54 36.6 71 19 153/82 99 Nasal Cannula 2.00 Intake and Output 11/06/16 11/06/16 11/07/16 Cumulative From/Thru 14:59 22:59 06:59 11/03/16 14:14 - 11/07/16 06:35 Intake Total 810 ml 869 ml 7213 ml Output Total 1250 ml 1750 ml 7650 ml Balance -440 ml -881 ml -437 ml Intake Oral 400 ml 400 ml 3040 ml IV Total 410 ml 469 ml 4173 ml Output Urine Total 1250 ml 1750 ml 7550 ml Emesis 100 ml # Voids 10 # Bowel Movements 0 0 Lab and Diagnostics Result Diagram: 11/07/16 0558 11/07/16 0558 Microbiology Name: DENISEMARLEEN Age/Sex: 81/F Attend Dr: Sonny Zepeda MD Acct: [id number] Unit: [id number] Status: ADM IN [place] [facility] [place] [facility]7-1 Re11/03/16 Disch: Specimen: [id number] Collected: 11/03/16 Status: RES Req#: [id number] Received: 11/03/16 Source: URINE CC Sp Desc : LAURI Cavanaugh Dr: DOC,YOEL IQBAL Ordered: URINE CULT Procedure Result Verified Site Microbiology PUJA CULT URINE Preliminary 11/04/16-835 No growth to date X-Rays, CTs and MRIs X-RAY CHEST ONE VIEW, PORTABLE 11/03 IMPRESSION: No acute cardiopulmonary abnormality Dictated by: Jewel Deshpande M.D. on 11/03/2016 at 15:56 Approved by: Jewel Deshpande M.D. on 11/03/2016 at 15:57 PROCEDURE: NM LUNG VQ RADIOPHARMACEUTICAL: 26.8 mCi Tc-99m DTPA aerosol by inhalation and 5.48 mCi Tc- 99m MAA intravenously. INDICATIONS: DVT with shortness of breath and hypoxia TECHNIQUE: Ventilation images were obtained first with Tc-99m DTPA aerosol. Subsequently, perfusion images were acquired after intravenous injection of Tc-99m MAA. Anterior, posterior, GOMEZ, MALIAN, RPO, LPO, left and right lateral views were obtained. COMPARISON: [facility], CR, XR CHEST 2VW, 11/04/2016, 17:31. FINDINGS: An unmatched perfusion defect is present within the anterior segment of the right upper lobe. No other perfusion/ventilation defects visualized. IMPRESSION: 1. Unmatched perfusion defect within the anterior segment of the right upper lobe. No associated abnormality is visualized on the plain film from the same date. No other perfusion defects or ventilation defects. This suggests an intermediate probability of pulmonary embolus. Dictated by: Nila Last M.D. on 11/04/2016 at 21:10 Approved by: Nila Last M.D. on 11/04/2016 at 21:18 PROCEDURE: X-RAY COMPLETE BONE SURVEY ([id number]) INDICATIONS: hypercalcemia, RULE OUT MYELOMA TECHNIQUE: Multiple views obtained of various bony structures as described below. COMPARISON: None. FINDINGS: Skull (lateral): No suspicious bony lesions. No fractures. Thoracic spine (AP, lateral): Bones are osteopenic. No suspicious bony lesions. No acute vertebral body compression fractures. There are moderate degenerative changes including intervertebral disc space narrowing and osteophytosis. Lumbar spine (AP, lateral): Bones are osteopenic. No suspicious bony lesions. No acute vertebral body compression fractures. There is grade I L5 on S1 anterolisthesis. Moderate facet sclerosis is present within the lower lumbar spine. Pelvis (AP): No suspicious bony lesions. No fractures. Overlying soft tissues appear unremarkable. Right and left humeri (AP): No suspicious bony lesions. No fractures. Overlying soft tissues appear unremarkable. Right and left femurs (AP): No suspicious bony lesions. No fractures. Overlying soft tissues appear unremarkable. IMPRESSION: 1. No lytic lesions to suggest multiple myeloma. 2. No acute fracture dislocation. 3. Diffuse osteopenia and degenerative changes of the thoracolumbar spine. Dictated by: Nila Last M.D. on 11/04/2016 at 21:19 Approved by: Nila Last M.D. on 11/04/2016 at 21:21 PROCEDURE: US RENAL SONOGRAM INDICATIONS: rule out kidney stones TECHNIQUE: Real-time scanning was performed of the kidneys and bladder, with image documentation. COMPARISON: [facility], CT, KUB - CT (ABD/PEL W/O CONT), 10/02/2010 , 23:32. FINDINGS: Kidneys: Kidneys are normal in size. Right kidney measures 11.7 cm long; left kidney measures 11.4 cm long. Right renal cortical thickness is 1.5 cm; left renal cortical thickness is 1.6 cm. Renal cortical echotexture is normal. No hydronephrosis or nephrolithiasis. Mild left renal pyelectasis. No suspicious solid mass lesions. Bladder: Pre-void bladder volume is 296 mL. Post-void residual is 96 mL. Pre- void images demonstrate no intraluminal masses or stones. On pre-void images, there ureteral jets are noted with color Doppler interrogation. (Of note, ureteral jets may not be detectable in up to 25% of cases due to insufficient differences in specific gravity between ureteral and bladder urine). Miscellaneous: No free pelvic fluid. IMPRESSION: 1. No visible stones seen bilaterally. 2. Mild left renal pyelectasis. 3. 96 cc PVR. Dictated by: Jose M Wang RRA Interpreted: Neela Oseguera MD on 11/04/2016 at 11: 56 Transcribed by: CHRISTIANO on 11/04/2016 at 11:58 PROCEDURE: CT CHEST, ABDOMEN AND PELVIS WITHOUT CONTRAST ([id number]) INDICATIONS: HYPERCALCEMIA, POSSIBLE HYPERCOAGULABLE STATE TECHNIQUE: After the administration of oral contrast, 5 mm thick sections acquired from the lung apices to the symphysis pubis. 5 mm thick coronal and sagittal reformats acquired, with additional 7 mm coronal MIP reformats through the lungs. For radiation dose reduction, the following was used: automated exposure control, adjustment of mA and/or kV according to patient size. COMPARISON: None. FINDINGS: Image quality: Excellent. CHEST: Lungs and pleura: Small bilateral pleural fluid collections are noted. Patchy airspace opacities noted in the left lung base nonspecific finding may represent pneumonia, aspiration or less likely neoplastic process. Central and peripheral airways are patent are normal in caliber. Mediastinum: Heart size is normal. No pericardial effusion. There is a 2.0 cm short axis superior mediastinal/left paratracheal lymph node. Thoracic aorta and central pulmonary arteries are normal in size. Esophagus is normal in caliber. No hiatal hernia. Chest wall: No axillary or supraclavicular adenopathy by size criteria. Thyroid gland is within normal limits where visualized. ABDOMEN: Solid organs: Liver and spleen are normal in size. Gallbladder is within normal limits. Pancreas is normal in contours. Right adrenal gland is normal in appearance. Mass is noted in the expected region of the left adrenal gland which could be related to lymphadenopathy versus a mass arising from the left adrenal gland. Both kidneys are normal in size, without hydronephrosis or nephrolithiasis. Peritoneum and bowel: Small and large bowel loops are normal in caliber and wall thickness. No free fluid or air. Nodes and vessels: Bulky periaortic retroperitoneal lymphadenopathy is noted. There is a 1.8 cm short axis right internal iliac lymph node. There is a 1.2 cm in short axis left common iliac node. Enlarged bilateral inguinal lymph nodes are noted. Largest right inguinal lymph node measures 1.3 cm in short axis. Largest left inguinal lymph node measures 1.1 cm in short axis. Aorta and inferior vena cava are normal in size. Miscellaneous: No ventral hernias. PELVIS: Genitourinary: Bladder wall thickness is normal. Miscellaneous: No inguinal hernias or adenopathy. Bones: No suspicious bony lesions. No vertebral body compression fractures. IMPRESSION: 1. Small bilateral pleural fluid collections. 2. Patchy airspace opacity in the left lower lobe compatible with aspiration, pneumonia or less likely neoplastic process. 3. Mediastinal, retroperitoneal, pelvic and bilateral inguinal lymphadenopathy highly suspicious for neoplastic process including lymphoma or metastatic disease. 4. Mass lesion in the expected region of the left adrenal gland which may represent retroperitoneal lymphadenopathy encroaching on the left adrenal gland or a mass arising from the left adrenal gland. Dictated by: Manju Neumann MD, PhD on 11/05/2016 at 16:27 Approved by: Manju Neumann MD, PhD on 11/05/2016 at 16:42 Cardiac Echo Impressions Echocardiogram Report Name: MARLEEN NEIL GStudy Date : 11/04/2016 Height: 66 in Hospital Exam Location: [facility] Weight: 155 lb Gender: Female BSA: 1.8 m2 : 1935 Age: 81 yrs BP: 140/69 mmHg Reason For Study: EDEMA, DYSPNEA Ordering Physician: HOSPITALIST [facility] Performed By: Juan Isauro Referring Physician: FELISHA, C. Interpretation Summary The left ventricle is normal in size. The ejection fraction is estimated to be 60-65%. There is mild to moderate tricuspid regurgitation. The right ventricular systolic pressure is estimated at 47 mmHg assuming a right atrial pressure of 3 mm Hg. The ascending aorta is moderately enlarged. Assessment & Plan Marleen Neil is a 81 year old female with Chronic leg edema of Lasix who presents to [facility] emergency department from Urgent Care with worsening exertion dyspnea # Acute Hypercalcemia. Present on admission Etiology includes Primary or Secondary hyperparathyroidim, Adrenal insufficiency , Humoral hypercalcemia of malignancy,Multiple Myeloma, Sarcoidosis. Patient has extensive family history of cancer. CT scan of the chest abdomen and pelvis shows the followin. Small bilateral pleural fluid collections. 2. Patchy airspace opacity in the left lower lobe compatible with aspiration, pneumonia or less likely neoplastic process. 3. Mediastinal, retroperitoneal, pelvic and bilateral inguinal lymphadenopathy highly suspicious for neoplastic process including lymphoma or metastatic disease. 4. Mass lesion in the expected region of the left adrenal gland which may represent retroperitoneal lymphadenopathy encroaching on the left adrenal gland or a mass arising from the left adrenal gland - We have consulted general surgeon Dr. Haro for potential biopsy of a lymph node, likely inguinal, for diagnosis. We have also consult Dr. Xie of oncology as well. - Continue IV fluids saline diuresis, stop this morning and re-evaluate - Well check PTH and PTH related peptide - We will restrict calcium intake and encourage mobilization - Dr. Subramanian of nephrology has started calcitonin and is considering biphosphonate therapy. Discussed with Dr. Subramanian and appreciate his help and input. # Right lower extremity DVT - Start full dose therapeutic Lovenox as bridging therapy to other oral anticoagulant which I suspect will be Coumadin - VQ scan was ordered which showed intermediate probability of pulmonary embolism. As this was a mismatch defect I strongly suspect pulmonary embolism. # Subacute dyspnea with leg edema. Present on admission back secondary to pulmonary embolism secondary to right lower extremity DVT - Echocardiogram not remarkable - Cardiology evaluation as outpatient. - Continue full dose subcutaneous Lovenox # Acute Kidney injury. Present on admission Suspect secondary to pre renal azotemia due to hypovolemia. - Continue to avoid nephrotoxic insults - Continue to monitor urine output - Nephrology has been consulted and discussed case with Dr. Subramanian and appreciate his input. I discussed case with him again today. # Given patient's hypercalcemia and possibly hypercoagulable state will need to rule out malignancy -Check lymph node biopsy results - Acetaminophen as needed for mild pain/fever/headache - Bowel regimen as needed - Antiemetic as needed Position: The patient will need to be here another 48-72 hours for the evaluation treatment of the above condition. GI Prophylaxis: Proton Pump Inhibitor VTE Prophylaxis: Sub-Q Enoxaparin, Theraputic Anticoag with Warfarin VTE Mechanical Devices: Intermittant Pneumatic CD Resuscitation Status: CPR: Attempt Resuscitation Alphonse Subramanian DO Nov 07, 2016 15:53
--- NOTE | 2016-11-07 19:32 | NUR ---
Appetite Patient continues with poor appetite but nausea and vomiting resolved today. pt states feeling much better today up visiting with multiple visitors today. Denies pain.
[2016-11-07 20:08] VITALS: BP 159/80; PULSE 72; RESP 18; O2SAT 96
[2016-11-07] MEDS: LORazepam 1 mg Tablet PO PRN (23:18)
[2016-11-08] VITALS (7 sets, daily range): BP systolic 120–146; BP diastolic 67–79; PULSE 66–86; RESP 16–20; O2SAT 93–98
--- NOTE | 2016-11-08 00:01 | PCM.PNMED ---
Subjective Date of Service Nov 07, 2016 Subjective The patient is feeling much better today than she did yesterday. She would like to try to eat some Jell-O today Exam Vital Signs Vital Sign - Last Date Time Temp Pulse Resp B/P Pulse Ox O2 Delivery O2 Flow Rate FiO2 11/07/16 22:18 Supplement Oxygen 11/07/16 20:08 36.6 72 18 159/80 96 2.00 Intake and Output 11/06/16 11/06/16 11/07/16 Cumulative From/Thru 15:00 23:00 07:00 11/03/16 14:14 - 11/07/16 06:35 Intake Total 810 ml 869 ml 7213 ml Output Total 1250 ml 1750 ml 7650 ml Balance -440 ml -881 ml -437 ml Intake Oral 400 ml 400 ml 3040 ml IV Total 410 ml 469 ml 4173 ml Output Urine Total 1250 ml 1750 ml 7550 ml Emesis 100 ml # Voids 10 # Bowel Movements 0 0 Exam General: Patient appears much more comfortable today. HEENT: Head is atraumatic and normocephalic. Eyes: Pupils are equally round and reactive to light and accommodation. Extraocular muscles are intact. Sclera are white, anicteric. Subconjunctival mucosa is pink. Ears and nose are unremarkable. Oropharynx: There is no mucosal lesions, there is no thrush, there is no pharyngitis. Neck: Is supple, there are no nodes, or masses or tenderness. Chest: The patient has rales in the left lower lobe. However, the left lower lobe is much clearer. There are no wheezes, rhonchi or rubs. Heart: Rate, rhythm is regular. There is no murmur, rub or gallop. Abdomen: Good bowel sounds are present. Abdomen is soft, nontender, no organomegaly or masses were appreciated. Extremities: Are well perfused. There is less pitting edema with right leg slightly greater in size than left leg. There is no cellulitis, no rash. Neurologic: There are no focal neurological deficits. Cranial nerves II through XII are intact. There are no sensory or motor deficits. Psychiatric: Patients mood is calm and she shows no sign of agitation. Genital: Deferred Rectal: Deferred Lab and Diagnostics Result Diagram: 11/07/16 0558 11/07/16 0558 Microbiology Name: MARLEEN NEIL Age/Sex: 81/F Attend Dr: Sonny Zepeda MD Acct: [id number] Unit: [id number] Status: ADM IN Location: [facility] [place] 1017-1 Re11/03/16 Disch: Specimen: [id number] Collected: 11/03/16 Status: RES Req#: [id number] Received: 11/03/16 Source: URINE JONES Siddiqi Desc : LAURI Cavanaugh Dr: YOEL WHITMORE MD Ordered: URINE CULT Procedure Result Verified Site Microbiology PJUA CULT URINE Preliminary 11/04/160836 No growth to date X-Rays, CTs and MRIs X-RAY CHEST ONE VIEW, PORTABLE 11/03 IMPRESSION: No acute cardiopulmonary abnormality Dictated by: Jewel Deshpande M.D. on 11/03/2016 at 15:56 Approved by: Jewel Deshpande M.D. on 11/03/2016 at 15:57 PROCEDURE: NM LUNG VQ RADIOPHARMACEUTICAL: 26.8 mCi Tc-99m DTPA aerosol by inhalation and 5.48 mCi Tc- 99m MAA intravenously. INDICATIONS: DVT with shortness of breath and hypoxia TECHNIQUE: Ventilation images were obtained first with Tc-99m DTPA aerosol. Subsequently, perfusion images were acquired after intravenous injection of Tc-99m MAA. Anterior, posterior, GOMEZ, KUWAITI, RPO, LPO, left and right lateral views were obtained. COMPARISON: [facility], CR, XR CHEST 2VW, 11/04/2016, 17:31. FINDINGS: An unmatched perfusion defect is present within the anterior segment of the right upper lobe. No other perfusion/ventilation defects visualized. IMPRESSION: 1. Unmatched perfusion defect within the anterior segment of the right upper lobe. No associated abnormality is visualized on the plain film from the same date. No other perfusion defects or ventilation defects. This suggests an intermediate probability of pulmonary embolus. Dictated by: Nila Last M.D. on 11/04/2016 at 21:10 Approved by: Nila Last M.D. on 11/04/2016 at 21:18 PROCEDURE: X-RAY COMPLETE BONE SURVEY ([id number]) INDICATIONS: hypercalcemia, RULE OUT MYELOMA TECHNIQUE: Multiple views obtained of various bony structures as described below. COMPARISON: None. FINDINGS: Skull (lateral): No suspicious bony lesions. No fractures. Thoracic spine (AP, lateral): Bones are osteopenic. No suspicious bony lesions. No acute vertebral body compression fractures. There are moderate degenerative changes including intervertebral disc space narrowing and osteophytosis. Lumbar spine (AP, lateral): Bones are osteopenic. No suspicious bony lesions. No acute vertebral body compression fractures. There is grade I L5 on S1 anterolisthesis. Moderate facet sclerosis is present within the lower lumbar spine. Pelvis (AP): No suspicious bony lesions. No fractures. Overlying soft tissues appear unremarkable. Right and left humeri (AP): No suspicious bony lesions. No fractures. Overlying soft tissues appear unremarkable. Right and left femurs (AP): No suspicious bony lesions. No fractures. Overlying soft tissues appear unremarkable. IMPRESSION: 1. No lytic lesions to suggest multiple myeloma. 2. No acute fracture dislocation. 3. Diffuse osteopenia and degenerative changes of the thoracolumbar spine. Dictated by: Nila Last M.D. on 11/04/2016 at 21:19 Approved by: Nila Last M.D. on 11/04/2016 at 21:21 PROCEDURE: US RENAL SONOGRAM INDICATIONS: rule out kidney stones TECHNIQUE: Real-time scanning was performed of the kidneys and bladder, with image documentation. COMPARISON: [facility], CT, KUB - CT (ABD/PEL W/O CONT), 10/02/2010 , 23:32. FINDINGS: Kidneys: Kidneys are normal in size. Right kidney measures 11.7 cm long; left kidney measures 11.4 cm long. Right renal cortical thickness is 1.5 cm; left renal cortical thickness is 1.6 cm. Renal cortical echotexture is normal. No hydronephrosis or nephrolithiasis. Mild left renal pyelectasis. No suspicious solid mass lesions. Bladder: Pre-void bladder volume is 296 mL. Post-void residual is 96 mL. Pre- void images demonstrate no intraluminal masses or stones. On pre-void images, there ureteral jets are noted with color Doppler interrogation. (Of note, ureteral jets may not be detectable in up to 25% of cases due to insufficient differences in specific gravity between ureteral and bladder urine). Miscellaneous: No free pelvic fluid. IMPRESSION: 1. No visible stones seen bilaterally. 2. Mild left renal pyelectasis. 3. 96 cc PVR. Dictated by: Jose M HOLGUIN Interpreted: Neela Oseguera MD on 11/04/2016 at 11: 56 Transcribed by: CHRISTIANO on 11/04/2016 at 11:58 PROCEDURE: CT CHEST, ABDOMEN AND PELVIS WITHOUT CONTRAST ([id number]) INDICATIONS: HYPERCALCEMIA, POSSIBLE HYPERCOAGULABLE STATE TECHNIQUE: After the administration of oral contrast, 5 mm thick sections acquired from the lung apices to the symphysis pubis. 5 mm thick coronal and sagittal reformats acquired, with additional 7 mm coronal MIP reformats through the lungs. For radiation dose reduction, the following was used: automated exposure control, adjustment of mA and/or kV according to patient size. COMPARISON: None. FINDINGS: Image quality: Excellent. CHEST: Lungs and pleura: Small bilateral pleural fluid collections are noted. Patchy airspace opacities noted in the left lung base nonspecific finding may represent pneumonia, aspiration or less likely neoplastic process. Central and peripheral airways are patent are normal in caliber. Mediastinum: Heart size is normal. No pericardial effusion. There is a 2.0 cm short axis superior mediastinal/left paratracheal lymph node. Thoracic aorta and central pulmonary arteries are normal in size. Esophagus is normal in caliber. No hiatal hernia. Chest wall: No axillary or supraclavicular adenopathy by size criteria. Thyroid gland is within normal limits where visualized. ABDOMEN: Solid organs: Liver and spleen are normal in size. Gallbladder is within normal limits. Pancreas is normal in contours. Right adrenal gland is normal in appearance. Mass is noted in the expected region of the left adrenal gland which could be related to lymphadenopathy versus a mass arising from the left adrenal gland. Both kidneys are normal in size, without hydronephrosis or nephrolithiasis. Peritoneum and bowel: Small and large bowel loops are normal in caliber and wall thickness. No free fluid or air. Nodes and vessels: Bulky periaortic retroperitoneal lymphadenopathy is noted. There is a 1.8 cm short axis right internal iliac lymph node. There is a 1.2 cm in short axis left common iliac node. Enlarged bilateral inguinal lymph nodes are noted. Largest right inguinal lymph node measures 1.3 cm in short axis. Largest left inguinal lymph node measures 1.1 cm in short axis. Aorta and inferior vena cava are normal in size. Miscellaneous: No ventral hernias. PELVIS: Genitourinary: Bladder wall thickness is normal. Miscellaneous: No inguinal hernias or adenopathy. Bones: No suspicious bony lesions. No vertebral body compression fractures. IMPRESSION: 1. Small bilateral pleural fluid collections. 2. Patchy airspace opacity in the left lower lobe compatible with aspiration, pneumonia or less likely neoplastic process. 3. Mediastinal, retroperitoneal, pelvic and bilateral inguinal lymphadenopathy highly suspicious for neoplastic process including lymphoma or metastatic disease. 4. Mass lesion in the expected region of the left adrenal gland which may represent retroperitoneal lymphadenopathy encroaching on the left adrenal gland or a mass arising from the left adrenal gland. Dictated by: Manju Neumann MD, PhD on 11/05/2016 at 16:27 Approved by: Manju Neumann MD, PhD on 11/05/2016 at 16:42 Cardiac Echo Impressions Echocardiogram Report Name: MARLEEN NEIL GStudy Date : 11/04/2016 Height: 66 in Hospital Exam Location: [facility] Weight: 155 lb Gender: Female BSA: 1.8 m2 : 1935 Age: 81 yrs BP: 140/69 mmHg Reason For Study: EDEMA, DYSPNEA Ordering Physician: HOSPITALIST [facility] Performed By: Juan Box Referring Physician: Adam BAEZA Interpretation Summary The left ventricle is normal in size. The ejection fraction is estimated to be 60-65%. There is mild to moderate tricuspid regurgitation. The right ventricular systolic pressure is estimated at 47 mmHg assuming a right atrial pressure of 3 mm Hg. The ascending aorta is moderately enlarged. Assessment & Plan Marleen Neil is a 81 year old female with Chronic leg edema of Lasix who presents to [facility] emergency department from Urgent Care with worsening exertion dyspnea # Acute Hypercalcemia. Present on admission Etiology includes Primary or Secondary hyperparathyroidim, Adrenal insufficiency , Humoral hypercalcemia of malignancy,Multiple Myeloma, Sarcoidosis. Patient has extensive family history of cancer. CT scan of the chest abdomen and pelvis shows the followin. Small bilateral pleural fluid collections. 2. Patchy airspace opacity in the left lower lobe compatible with aspiration, pneumonia or less likely neoplastic process. 3. Mediastinal, retroperitoneal, pelvic and bilateral inguinal lymphadenopathy highly suspicious for neoplastic process including lymphoma or metastatic disease. 4. Mass lesion in the expected region of the left adrenal gland which may represent retroperitoneal lymphadenopathy encroaching on the left adrenal gland or a mass arising from the left adrenal gland - We have consulted general surgeon Dr. aHro who performed a biopsy of a small chain of right inguinal lymph nodes and patient is postop day #1 We have also consulted Dr. Xie of oncology as well. - Continue IV fluids saline diuresis, stop this morning and re-evaluate - Well check PTH and PTH related peptide - We will restrict calcium intake and encourage mobilization - Dr. Subramanian of nephrology who believes the patient's renal function has improved to the point where he will sign off. We appreciate his help and input. # Right lower extremity DVT - Start full dose therapeutic Lovenox as bridging therapy to Coumadin. Pharmacy is dosing Coumadin. - VQ scan was ordered which showed intermediate probability of pulmonary embolism. As this was a mismatch defect I strongly suspect pulmonary embolism. # Subacute dyspnea with leg edema. Present on admission back secondary to pulmonary embolism secondary to right lower extremity DVT - Echocardiogram not remarkable - Cardiology evaluation as outpatient. - Continue full dose subcutaneous Lovenox as bridging therapy to Coumadin. # Acute Kidney injury. Present on admission Suspect secondary to pre renal azotemia due to hypovolemia. - Continue to avoid nephrotoxic insults - Continue to monitor urine output - Nephrology has been consulted and discussed case with Dr. Subramanian and appreciate his input. I discussed case with him again today. # Given patient's hypercalcemia and possibly hypercoagulable state will need to rule out malignancy -Check lymph node biopsy results - Acetaminophen as needed for mild pain/fever/headache - Bowel regimen as needed - Antiemetic as needed Position: The patient will need to be here another 48-72 hours for the evaluation treatment of the above condition. Dr. Nilo Lopez will follow in a.m. Pain Evaluation: Adequate Pain Control GI Prophylaxis: Proton Pump Inhibitor VTE Prophylaxis: Sub-Q Enoxaparin, Theraputic Anticoag with Warfarin VTE Mechanical Devices: Intermittant Pneumatic CD Resuscitation Status: CPR: Attempt Resuscitation Eros Paz MD Nov 08, 2016 00:01
[2016-11-08] MEDS: PREDNISOLONE 1% LEFT_EYE SCH ×4 (06:30→22:03)
[2016-11-08 06:42] LABS: INR 2.81 ratio
[2016-11-08 06:59] LABS: Magnesium 2.1 mg/dL (1.6-2.6)
[2016-11-08 07:03] LABS: BASOPHILS % (AUTO) 0.7 % (0-3); EOSINOPHILS % (AUTO) 4.2 % (0-5); Mean Corpuscular Hemoglobin 26.5 pg (27.0-35.0); Mean Corpuscular Volume 86.1 fL (81-100); NEUTROPHILS % (AUTO) 75.8 % (40-74); Platelet Count 226 bil/L (150-400)
--- NOTE | 2016-11-08 07:23 | NUR ---
Activity Patient states that she feels weak because of her lack of appetite. She states that nothing tastes or appeals to her. Patient requested sleep aid as she is slightly worried about her diagnosis. Lorazepam administered. VSS. Call light in reach. Patient resting comfortably.
[2016-11-08] MEDS: Pantoprazole 40 mg ER24 Tablet PO SCH (08:43)
[2016-11-08] MEDS: Calcitonin 200 unit/mL 2mL Inj IM SCH ×2 (08:44→22:02)
[2016-11-08] MEDS: Furosemide 10 mg/mL 4 mL Inj IVPUSH SCH (08:54)
[2016-11-08] MEDS: Potassium Chloride Inj 40 MEQ in 0.9% Sodium Chloride 1,000 ML IV SCH (10:39)
--- NOTE | 2016-11-08 11:50 | NUR ---
Refused breakfast patient is alert and oriented X3. able to make needs known. patient refused breakfast this morning and states," i have not been feeling hungry lately, my friend brought me meal yesterday and it did not sound appealing at all." patient prefers ensure and would like to try it. Notified Doctor Stickle and aware. awaiting orders. denies pain or discomfort. scheduled PO medications received by patient with out difficulty swallowing. Eye drops given to left eye as ordered. right inguinal steri strips dry blood noted with out active discharge. denies pain or discomfort at the site. per patient doctor did take at look at the site this morning. call light with in reach for safety. Bilateral non pitting edema, SCD's on for edema management. steady on feet and SBA. Stable oxygen on 2L nasal cannula. will continue to monitor vital signs, pain, appetite, and safety.
--- NOTE | 2016-11-08 12:06 | NUR ---
Protein shake New orders received for TID protein shakes. notified patient and prefers vanilla shake. called kitchen for vanilla shake. patient aware.
--- NOTE | 2016-11-08 12:43 | NUR ---
fire management technician called and states," patient converted to A-fib at 1150." Checked patient, asymptomatic,and patient is sitting at the edge of bed and having sips of shake. Doctor stickle aware and ordered EKG and calling RT. will continue to monitor.
--- NOTE | 2016-11-08 12:56 | PCM.PHAPRO ---
Progress Warfarin Management by Pharmacy: -Inr jumped to 2.81 from 1.47 yesterday. will hold the dose this evening and follow Lily Vera [facility] Nov 08, 2016 12:56
--- NOTE | 2016-11-08 12:58 | PROG NOTE ---
[address] [address] PROGRESS NOTE PATIENT: PAXTON WALKER : 1935 MR#: [id number] ADMIT: 11/03/2016 JOB ID: [id number] DATE: 11/08/2016 SUBJECTIVE/OBJECTIVE: Postop day two lymph node biopsy. Incision is well. General Surgery will sign off.
--- NOTE | 2016-11-08 12:59 | NUR ---
Vital signs BP 126/81, pulse 111, Oxygen 98%2LNC, RR14, Temp 36.5/97.7. Denies chest pain or chest discomfort. RT at bed side for EKG. patient drank 237 ml vanilla shake that ordered. will continue to monitor.
--- NOTE | 2016-11-08 13:02 | NUR ---
GURVINDER signed. Nila Benoit TRANSPLANT NURSE
--- NOTE | 2016-11-08 13:50 | NUR ---
Social Work- Readiness for Discharge Data: EMR reviewed. Pt is on day 5 of hospitalization for hypercalcemia per H&P. Pt is s/p lymphnode biopsy. Pt is not medically stable for discharge, anticipate multiple more days. Pt is independent at baseline and has been up independent in room. Pt to discharge home with family to transport via POV. No anticipated discharge needs. SW will continue to follow. Assessment: Pt who is independent at base. Plan: Pt to discharge home with family to transport via POV. No anticipated discharge needs. SW will continue to follow. ANA Olivier
--- NOTE | 2016-11-08 14:42 | PCM.PNMED ---
Subjective Date of Service Nov 08, 2016 Subjective She is seen today to follow-up her hypercalcemia, pulmonary embolus/DVT, suspected lymphoma, and new onset atrial fibrillation. The potassium is low at 3.4. Around 12:00 noon sinus rhythm converted to A. fib with rapid ventricular response up to the 130s noted on telemetry. This was confirmed on EKG but within the hour the rate did come down below 100 and it looked like it was possibly going to convert back to sinus rhythm spontaneously. The T4 and TSH are again rechecked and this time are normal. Echocardiogram has been already done during this hospitalization, she is anticoagulated with Coumadin. Exam Vital Signs Vital Sign - Last Date Time Temp Pulse Resp B/P Pulse Ox O2 Delivery O2 Flow Rate FiO2 11/08/16 10:41 Supplement Oxygen 11/08/16 09:02 70 11/08/16 08:55 36.8 146/69 94 2.00 11/08/16 05:17 20 Intake and Output 11/07/16 11/07/16 11/08/16 Cumulative From/Thru 15:00 23:00 07:00 11/03/16 14:14 - 11/08/16 06:33 Intake Total 720 ml 1247 ml 9180 ml Output Total 1600 ml 700 ml 9950 ml Balance -880 ml 547 ml -770 ml Intake Oral 720 ml 150 ml 3910 ml IV Total 1097 ml 5270 ml Output Urine Total 1600 ml 700 ml 9850 ml Emesis 100 ml # Voids 10 # Bowel Movements 0 0 Exam General: Patient appears much more comfortable today. HEENT: Head is atraumatic and normocephalic. Chest: Clear to auscultation bilaterally Heart: Rate, rhythm is regular. There is no murmur, rub or gallop. Extremities: Are well perfused. There is no edema. Neurologic: There are no focal neurological deficits. Psychiatric: Patients mood is calm and she shows no sign of agitation. IVs and Medications Medications Reviewed: Medications were reviewed in detail Lab and Diagnostics Result Diagram: 11/08/16 0611/08/16 06 Microbiology Name: MARLEEN NEIL Age/Sex: 81/F Attend Dr: Sonny Zepeda MD Acct: [id number] Unit: [id number] Status: ADM IN Location: [facility] 1017-1 Re11/03/16 Disch: Specimen: [id number] Collected: 11/03/16 Status: RES Req#: [id number] Received: 11/03/16 Source: URINE CC Sp Desc : LAURI Cavanaugh Dr: YOEL WHITMORE MD Ordered: URINE CULT Procedure Result Verified Site Microbiology PUJA CULT URINE Preliminary 11/04/16 No growth to date X-Rays, CTs and MRIs X-RAY CHEST ONE VIEW, PORTABLE 11/03 IMPRESSION: No acute cardiopulmonary abnormality Dictated by: Jewel Deshpande M.D. on 11/03/2016 at 15:56 Approved by: Jewel Deshpande M.D. on 11/03/2016 at 15:57 PROCEDURE: NM LUNG VQ RADIOPHARMACEUTICAL: 26.8 mCi Tc-99m DTPA aerosol by inhalation and 5.48 mCi Tc- 99m MAA intravenously. INDICATIONS: DVT with shortness of breath and hypoxia TECHNIQUE: Ventilation images were obtained first with Tc-99m DTPA aerosol. Subsequently, perfusion images were acquired after intravenous injection of Tc-99m MAA. Anterior, posterior, GOMEZ, AMHARIC, RPO, LPO, left and right lateral views were obtained. COMPARISON: [facility], CR, XR CHEST 2VW, 11/04/2016, 17:31. FINDINGS: An unmatched perfusion defect is present within the anterior segment of the right upper lobe. No other perfusion/ventilation defects visualized. IMPRESSION: 1. Unmatched perfusion defect within the anterior segment of the right upper lobe. No associated abnormality is visualized on the plain film from the same date. No other perfusion defects or ventilation defects. This suggests an intermediate probability of pulmonary embolus. Dictated by: Nila Last M.D. on 11/04/2016 at 21:10 Approved by: Nila Last M.D. on 11/04/2016 at 21:18 PROCEDURE: X-RAY COMPLETE BONE SURVEY ([id number]) INDICATIONS: hypercalcemia, RULE OUT MYELOMA TECHNIQUE: Multiple views obtained of various bony structures as described below. COMPARISON: None. FINDINGS: Skull (lateral): No suspicious bony lesions. No fractures. Thoracic spine (AP, lateral): Bones are osteopenic. No suspicious bony lesions. No acute vertebral body compression fractures. There are moderate degenerative changes including intervertebral disc space narrowing and osteophytosis. Lumbar spine (AP, lateral): Bones are osteopenic. No suspicious bony lesions. No acute vertebral body compression fractures. There is grade I L5 on S1 anterolisthesis. Moderate facet sclerosis is present within the lower lumbar spine. Pelvis (AP): No suspicious bony lesions. No fractures. Overlying soft tissues appear unremarkable. Right and left humeri (AP): No suspicious bony lesions. No fractures. Overlying soft tissues appear unremarkable. Right and left femurs (AP): No suspicious bony lesions. No fractures. Overlying soft tissues appear unremarkable. IMPRESSION: 1. No lytic lesions to suggest multiple myeloma. 2. No acute fracture dislocation. 3. Diffuse osteopenia and degenerative changes of the thoracolumbar spine. Dictated by: Nila Last M.D. on 11/04/2016 at 21:19 Approved by: Nila Last M.D. on 11/04/2016 at 21:21 PROCEDURE: US RENAL SONOGRAM INDICATIONS: rule out kidney stones TECHNIQUE: Real-time scanning was performed of the kidneys and bladder, with image documentation. COMPARISON: [facility], CT, KUB - CT (ABD/PEL W/O CONT), 10/02/2010 , 23:32. FINDINGS: Kidneys: Kidneys are normal in size. Right kidney measures 11.7 cm long; left kidney measures 11.4 cm long. Right renal cortical thickness is 1.5 cm; left renal cortical thickness is 1.6 cm. Renal cortical echotexture is normal. No hydronephrosis or nephrolithiasis. Mild left renal pyelectasis. No suspicious solid mass lesions. Bladder: Pre-void bladder volume is 296 mL. Post-void residual is 96 mL. Pre- void images demonstrate no intraluminal masses or stones. On pre-void images, there ureteral jets are noted with color Doppler interrogation. (Of note, ureteral jets may not be detectable in up to 25% of cases due to insufficient differences in specific gravity between ureteral and bladder urine). Miscellaneous: No free pelvic fluid. IMPRESSION: 1. No visible stones seen bilaterally. 2. Mild left renal pyelectasis. 3. 96 cc PVR. Dictated by: Jose M HOLGUIN Interpreted: Neela Oseguera MD on 11/04/2016 at 11: 56 Transcribed by: CHRISTIANO on 11/04/2016 at 11:58 PROCEDURE: CT CHEST, ABDOMEN AND PELVIS WITHOUT CONTRAST ([id number]) INDICATIONS: HYPERCALCEMIA, POSSIBLE HYPERCOAGULABLE STATE TECHNIQUE: After the administration of oral contrast, 5 mm thick sections acquired from the lung apices to the symphysis pubis. 5 mm thick coronal and sagittal reformats acquired, with additional 7 mm coronal MIP reformats through the lungs. For radiation dose reduction, the following was used: automated exposure control, adjustment of mA and/or kV according to patient size. COMPARISON: None. FINDINGS: Image quality: Excellent. CHEST: Lungs and pleura: Small bilateral pleural fluid collections are noted. Patchy airspace opacities noted in the left lung base nonspecific finding may represent pneumonia, aspiration or less likely neoplastic process. Central and peripheral airways are patent are normal in caliber. Mediastinum: Heart size is normal. No pericardial effusion. There is a 2.0 cm short axis superior mediastinal/left paratracheal lymph node. Thoracic aorta and central pulmonary arteries are normal in size. Esophagus is normal in caliber. No hiatal hernia. Chest wall: No axillary or supraclavicular adenopathy by size criteria. Thyroid gland is within normal limits where visualized. ABDOMEN: Solid organs: Liver and spleen are normal in size. Gallbladder is within normal limits. Pancreas is normal in contours. Right adrenal gland is normal in appearance. Mass is noted in the expected region of the left adrenal gland which could be related to lymphadenopathy versus a mass arising from the left adrenal gland. Both kidneys are normal in size, without hydronephrosis or nephrolithiasis. Peritoneum and bowel: Small and large bowel loops are normal in caliber and wall thickness. No free fluid or air. Nodes and vessels: Bulky periaortic retroperitoneal lymphadenopathy is noted. There is a 1.8 cm short axis right internal iliac lymph node. There is a 1.2 cm in short axis left common iliac node. Enlarged bilateral inguinal lymph nodes are noted. Largest right inguinal lymph node measures 1.3 cm in short axis. Largest left inguinal lymph node measures 1.1 cm in short axis. Aorta and inferior vena cava are normal in size. Miscellaneous: No ventral hernias. PELVIS: Genitourinary: Bladder wall thickness is normal. Miscellaneous: No inguinal hernias or adenopathy. Bones: No suspicious bony lesions. No vertebral body compression fractures. IMPRESSION: 1. Small bilateral pleural fluid collections. 2. Patchy airspace opacity in the left lower lobe compatible with aspiration, pneumonia or less likely neoplastic process. 3. Mediastinal, retroperitoneal, pelvic and bilateral inguinal lymphadenopathy highly suspicious for neoplastic process including lymphoma or metastatic disease. 4. Mass lesion in the expected region of the left adrenal gland which may represent retroperitoneal lymphadenopathy encroaching on the left adrenal gland or a mass arising from the left adrenal gland. Dictated by: Manju Neumann MD, PhD on 11/05/2016 at 16:27 Approved by: Manju Neumann MD, PhD on 11/05/2016 at 16:42 Cardiac Echo Impressions Echocardiogram Report Name: MARLEEN NEIL GStudy Date : 11/04/2016 Height: 66 in Hospital Exam Location: [facility] Weight: 155 lb Gender: Female BSA: 1.8 m2 : 1935 Age: 81 yrs BP: 140/69 mmHg Reason For Study: EDEMA, DYSPNEA Ordering Physician: HOSPITALIST [facility] Performed By: Juan Box Referring Physician: Adam BAEZA Interpretation Summary The left ventricle is normal in size. The ejection fraction is estimated to be 60-65%. There is mild to moderate tricuspid regurgitation. The right ventricular systolic pressure is estimated at 47 mmHg assuming a right atrial pressure of 3 mm Hg. The ascending aorta is moderately enlarged. Assessment & Plan Marleen Neil is a 81 year old female with Chronic leg edema of Lasix who presents to [facility] emergency department from Urgent Care with worsening exertion dyspnea # Acute Hypercalcemia. Present on admission Etiology includes Primary or Secondary hyperparathyroidim, Adrenal insufficiency , Humoral hypercalcemia of malignancy,Multiple Myeloma, Sarcoidosis. Patient has extensive family history of cancer. CT scan of the chest abdomen and pelvis shows the followin. Small bilateral pleural fluid collections. 2. Patchy airspace opacity in the left lower lobe compatible with aspiration, pneumonia or less likely neoplastic process. 3. Mediastinal, retroperitoneal, pelvic and bilateral inguinal lymphadenopathy highly suspicious for neoplastic process including lymphoma or metastatic disease. 4. Mass lesion in the expected region of the left adrenal gland which may represent retroperitoneal lymphadenopathy encroaching on the left adrenal gland or a mass arising from the left adrenal gland - We have consulted general surgeon Dr. Haro who performed a biopsy of a small chain of right inguinal lymph nodes and patient is postop day #2 We have also consulted Dr. Xie of oncology as well. - check PTH and PTH related peptide - We will restrict calcium intake and encourage mobilization - Dr. Subramanian of nephrology who believes the patient's renal function has improved to the point where he will sign off. We appreciate his help and input. -The lymph node biopsy results are still pending. -Add additional oral potassium to the IV infusion today. Potassium is 3.4 and the calcium is 9.5. # Right lower extremity DVT - Start full dose therapeutic Lovenox as bridging therapy to Coumadin. Pharmacy is dosing Coumadin. - VQ scan was ordered which showed intermediate probability of pulmonary embolism. As this was a mismatch defect I strongly suspect pulmonary embolism. # Subacute dyspnea with leg edema and new onset today of atrial fibrillation. Present on admission back secondary to pulmonary embolism secondary to right lower extremity DVT - Echocardiogram not remarkable - Cardiology evaluation as outpatient. -Cardiology inpatient consult and rate control if indicated. Expect she will likely revert back to sinus rhythm based on the telemetry appearance of her current rhythm. # Acute Kidney injury. Present on admission Suspect secondary to pre renal azotemia due to hypovolemia. - Continue to avoid nephrotoxic insults - Continue to monitor urine output - Nephrology has been consulted # Given patient's hypercalcemia and possibly hypercoagulable state will need to rule out malignancy -Check lymph node biopsy results - Acetaminophen as needed for mild pain/fever/headache - Bowel regimen as needed - Antiemetic as needed Position: The patient will need to be here another 48 hours for the evaluation treatment of the above condition. Nilo Lopez MD GI Prophylaxis: Proton Pump Inhibitor VTE Prophylaxis: Sub-Q Enoxaparin, Theraputic Anticoag with Warfarin VTE Mechanical Devices: Intermittant Pneumatic CD Resuscitation Status: CPR: Attempt Resuscitation Eduardo Lopez MD Nov 08, 2016 11:14
--- NOTE | 2016-11-08 17:10 | NUR ---
Telemetry per technical translator patient still in Afib, heart rate 107. notified Doctor Stickle and aware. awaiting new orders. patient's has family at bed side and asymptomatic.
--- NOTE | 2016-11-08 18:02 | NUR ---
Converted to SR automotive engineering technician called and states," Converted to sinus rhythm 80 at 1750.
[2016-11-09 00:38] VITALS: BP 116/63; PULSE 72; RESP 16; O2SAT 95
[2016-11-09] MEDS: Potassium Chloride Inj 40 MEQ in 0.9% Sodium Chloride 1,000 ML IV SCH (05:21)
[2016-11-09 05:35] VITALS: BP 147/71; PULSE 65; RESP 16; O2SAT 94
[2016-11-09 05:37] VITALS: PULSE 70
[2016-11-09 06:39] LABS: BASOPHILS % (AUTO) 0.5 % (0-3); EOSINOPHILS % (AUTO) 5.8 % (0-5); MONOCYTES % (AUTO) 10.5 % (4-12); Mean Corpuscular Hemoglobin 26.6 pg (27.0-35.0); Mean Corpuscular Volume 86.3 fL (81-100); NEUTROPHILS % (AUTO) 75.8 % (40-74); Platelet Count 249 bil/L (150-400)
[2016-11-09 06:43] LABS: INR 2.22 ratio
[2016-11-09] MEDS: Pantoprazole 40 mg ER24 Tablet PO SCH (06:59)
[2016-11-09] MEDS: PREDNISOLONE 1% LEFT_EYE SCH (06:59)
--- NOTE | 2016-11-09 07:01 | NUR ---
activity patient slept well through the night denied pain throughout the night ambulated to the restroom with sba. legs elevated. scds on.
[2016-11-09 07:17] LABS: Magnesium 1.7 mg/dL (1.6-2.6)
--- NOTE | 2016-11-09 07:59 | PCM.PHAPRO ---
Progress Warfarin Management by Pharmacy: -Indication: dvt/pe -Inr Goal: 2-3 -concurrent anticoagulation: none, Lovenox was stopped yesterday -Home Dose: new start -Coagulation Trends: -Nov 2-Nov 3-Nov 08-Nov 09-Nov 1.01 1.05 1.47 2.81 2.22 0.04 0.42 1.34 -0.59 5 5 5 HOLD 3MG -Plan: dose of warfarin was held yesterday due to large increase in inr. will resume this evening with warfarin 3mg and follow Lily Vera [facility] Nov 09, 2016 07:59
[2016-11-09] MEDS: Furosemide 10 mg/mL 4 mL Inj IVPUSH SCH (08:43)
[2016-11-09 09:50] VITALS: PULSE 75
[2016-11-09 10:57] VITALS: BP 147/81; PULSE 66; RESP 16
[2016-11-09] MEDS: Calcitonin 200 unit/mL 2mL Inj IM SCH (11:00)
[2016-11-09] MEDS ORDERED: METO25TA6 PO (12:58)
[2016-11-09] MEDS ORDERED: WARF3TAB PO (12:58)
[2016-11-09] MEDS ORDERED: Patient Own Medication LEFT_EYE (12:58)
[2016-11-09] MEDS ORDERED: HYDR-4003 PO (12:58)
[2016-11-09] MEDS ORDERED: POTA10TA38 PO (12:58)
--- NOTE | 2016-11-09 13:03 | PCM.DIMED ---
Discharge Instructions Date of Service Nov 09, 2016 Dates of Hospitalization Nov 03, 2016 at 20:09 Discharge Diagnosis Discharge Diagnosis # Acute Hypercalcemia. Possible Lymphoma 1. Small bilateral pleural fluid collections. 2. Patchy airspace opacity in the left lower lobe compatible with aspiration, pneumonia or less likely neoplastic process. 3. Mediastinal, retroperitoneal, pelvic and bilateral inguinal lymphadenopathy highly suspicious for neoplastic process including lymphoma or metastatic disease. 4. Mass lesion in the expected region of the left adrenal gland which may represent retroperitoneal lymphadenopathy encroaching on the left adrenal gland or a mass arising from the left adrenal gland. # Right lower extremity DVT and PE # Subacute dyspnea with leg edema and new paroxysmal atrial fibrillation. # Acute Kidney injury Diet No restrictions Activity No restrictions Call your provider Fever or Chills, Shortness of breath, Bleeding, Chest pain, Vomitting, Excessive diarrhea, Weakness (unilateral) Patient Instructions Follow up with the [facility] at [facility] in 2 days. Do not wait longer than 3 days for this check. Call tomorrow to make that appointment. Follow-up Provider: Sylvia Josue DO Follow-up with PCP in: Other (3-4 days) Eduardo Lopez MD Nov 09, 2016 13:03
--- NOTE | 2016-11-09 15:07 | NUR ---
Social Work- Discharge Data: EMR reviewed. Pt is on day 5 of hospitalization for hypercalcemia per H&P. Pt to discharge today. Pt is independent at baseline and has been up independent in room. Pt to discharge home with family to transport via POV. No discharge needs. Assessment: Pt who is independent at base. Plan: Pt to discharge home with family to transport via POV. No discharge needs. ANA Olivier
--- NOTE | 2016-11-09 15:30 | NUR ---
Discharge Pt was discharged home with her granddaughter. Pt verbalizes understanding about f/u with PCP and [facility] as she has been started on warfarin.
--- NOTE | 2016-11-09 16:50 | PCM.DC.MED ---
Discharge Summary Date of Service Nov 09, 2016 Dates of Hospitalization Date of Hospital Admission Nov 03, 2016 at 20:09 Date of Discharge: Nov 09, 2016 Providers: Admitting Physician: Sonny Zepeda MD Primary Care Physician: Sylvia Josue DO Attending Physician: Sonny Zepeda MD Diagnosis at Time of Discharge Diagnosis at Time of Discharge # Acute Hypercalcemia. Possible Lymphoma 1. Small bilateral pleural fluid collections. 2. Patchy airspace opacity in the left lower lobe compatible with aspiration, pneumonia or less likely neoplastic process. 3. Mediastinal, retroperitoneal, pelvic and bilateral inguinal lymphadenopathy highly suspicious for neoplastic process including lymphoma or metastatic disease. 4. Mass lesion in the expected region of the left adrenal gland which may represent retroperitoneal lymphadenopathy encroaching on the left adrenal gland or a mass arising from the left adrenal gland. # Right lower extremity DVT and PE # Subacute dyspnea with leg edema and new paroxysmal atrial fibrillation. # Acute Kidney injury Consultations CONSULTATION REPORT PATIENT: MARLEEN NEIL : 1935 MR#: [id number] ADMIT: 11/03/2016 JOB ID: [id number] DATE OF SERVICE: 11/06/2016 SURGICAL CONSULTATION: CHIEF COMPLAINT/IDENTIFICATION: Dr. Paz has asked me to see this 81-year-old woman for consideration of lymph node biopsy. HISTORY OF PRESENT ILLNESS: The patient presented to the hospital with shortness of breath on November 03 in the evening and was found to have a pulmonary embolus. She was also noted to be hypercalcemic. These issues have been addressed including being placed on subcutaneous Lovenox and warfarin. Her last warfarin was yesterday at 5 p.m. and her last Lovenox was on November 05 at 1400. She had a chest, abdomen and pelvis CT that has demonstrated mediastinal, retroperitoneal and inguinal adenopathy. I am asked to see her for a tissue diagnosis. PAST MEDICAL HISTORY: 1. Chronic lower extremity edema. 2. Hypertension not on medication. HOME MEDICATIONS: Glucosamine, furosemide, eye drops. ALLERGIES: None. SOCIAL HISTORY: Negative tobacco. Negative daily alcohol. FAMILY HISTORY: Breast cancer. Diabetes. REVIEW OF SYSTEMS: Per admission history and physical. PHYSICAL EXAMINATION: Slender woman, in no acute distress, resting in her bed with her oxygen on. Lungs are clear. Heart sounds are regular. Abdomen is soft. She has palpable inguinal adenopathy right greater than left. LABORATORIES: INR today is 1.05. Chemistries show improving creatinine down to 1.55 and her calcium is down to 10.2, albumin is 3.0. IMPRESSION AND PLAN: Mediastinal, retroperitoneal and inguinal adenopathy suspicious for malignancy. Oncology consultation is pending. I have told her to be n.p.o. and I will hold her Lovenox in anticipation of a possible right inguinal lymph node biopsy versus laparoscopic retroperitoneal biopsy. We will obtain a tissue diagnosis as directed by Oncology. Wallace Haro MD 11/06/16 0959 <Electronically signed by Wallace Haro MD> CONSULTATION REPORT PATIENT: MARLEEN NEIL : 1935 MR#: [id number] ADMIT: 11/03/2016 JOB ID: [id number] DATE OF SERVICE: 11/04/2016 RENAL CONSULTATION: HISTORY: The patient is a very pleasant 81-year-old white female, who was admitted to [facility] for acute kidney injury and severe hypercalcemia. Renal consultation is being sought for further evaluation and management of her acute kidney injury. The patient states that she was feeling fine until August when she underwent a corneal transplant. Following this, she states that she has had considerable number of problems including intermittent but severe left hip and left knee pain. She states that she has taken a few acetaminophen but has not taken any NSAIDs for this. The pain improves somewhat, however, this is followed for the last three weeks by progressive shortness of breath with even minimal exertion. She denies any recent upper respiratory tract symptoms, chest pain, paroxysmal nocturnal dyspnea, cough, wheezing, leg pain, or muscle pain in either lower extremities, but she does state that she has some mild chronic lower extremity edema. She also states her appetite has been diminished over the last few weeks. She has had some nausea but no vomiting, constipation or diarrhea. She does state that she takes one Sagrario tablet a day and has for a number of years. Otherwise she states she has had some increased somnolence and generalized fatigue. There are no recent myalgias, rashes, fever or chills. She denies a history of any prior renal problems. There is no difficulties in urination or any current or past history of hematuria, proteinuria, recurrent urinary tract infections or renolithiasis. She denies a history of diabetes, hepatitis, hypertension or lupus. In the emergency department, her creatinine was elevated at 2.22 and her calcium at that time was 16.0. She has been treated with aggressive hydration and her calcium has improved down to 13 and there has been a slight improvement in her creatinine. DATE OF SERVICE: PAST MEDICAL HISTORY: Is remarkable only for some chronic lower extremity edema which has been treated intermittently with furosemide. As noted above, there is no history of any prior stroke, seizure, asthma, emphysema, coronary artery disease, congestive heart failure, thyroid illness or hepatitis. PAST SURGICAL HISTORY: Is remarkable for corneal transplant as detailed above. She has no allergy for any medications. SOCIAL HISTORY: She denies use of alcohol, tobacco or illicit drugs. She states that she normally is quite active in her numerous activities of daily living which until the last two months she has performed without any significant restrictions. FAMILY HISTORY: Remarkable for a daughter who of breast cancer. The patient has had one mammogram in the past and has never had a colonoscopy. She is currently not on any medications prior to admission other than some p.r.n. furosemide. REVIEW OF SYSTEMS: As detailed above. Otherwise is unremarkable. PHYSICAL EXAMINATION: Revealed a well-developed 81-year-old white female who is alert and oriented x3, in no distress at the time of my evaluation. Her temperature was 37.0, blood pressure was 140/69, pulse rate was 88 and respirations were 18. HEENT examination is remarkable for mildly pale sclerae. Cornea and conjunctivae were unremarkable. Neck is supple without adenopathy, thyromegaly or jugular venous distention. Lungs showed some diminished breath sounds in both bases. Heart was regular and rhythmical with a soft systolic murmur. Abdomen is soft, without any tenderness, rebound, guarding, masses or hepatosplenomegaly. Extremities showed some mild bilateral lower extremity pitting edema. There is no clubbing or cyanosis noted. Skin turgor was good and there is no evidence of any rashes. LABORATORY EXAMINATION: This morning, her sodium is 138, potassium 4.1, chloride of 101, bicarbonate is 26. BUN and creatinine were 43 and 2.14. Calcium was 13.4. TSH was slightly elevated at 5.5, and her intact PTH was low at 10. Her white count was 6.2, hemoglobin 11.4, hematocrit 36.7, red cell indices, platelet count and differential were normal. Urinalysis showed a specific gravity 1.020, pH was 6. Tests for protein were slightly positive. Occult blood ketones and leukocyte esterase were negative. She had 6-10 WBCs per high-power field, moderate epithelial cells, a few hyaline casts and there were some calcium oxalate crystals noted. Her chest x-ray was unremarkable for any masses or bony changes. X-ray of the left hip and pelvis did not show any lytic or blastic lesions. Venous duplex showed a DVT in the right lower leg and a questionable right inguinal lymph node enlargement. Renal ultrasound done this morning showed normal-size kidneys with normal dense cortical medullary distinction. There was some mild left renal pelviectasis and there was a 96 mL postvoid residual. IMPRESSION: 1. Acute kidney injury secondary to dehydration. 2. Hypercalcemia. In light of the patient's age, I would be strongly suspicious of some type of underlying malignancy. 3. Mild normocytic, normochromic anemia. 4. Deep venous thrombosis. RECOMMENDATION: As noted above, I am very suspicious of an underlying malignancy and would like to get a serum protein electrophoresis along with a mammogram and other tumor markers. I would also like to get a sed rate and an LDH on her with her morning lab. I would like to continue her on the normal saline but also add some Lasix to her IV. Once again, I would like to thank you for allowing me to participate in the care of this most interesting patient. I will be following her closely with you. Alphonse Subramanian DO 11/04/16 1407 <Electronically signed by Alphonse Subramanian DO Procedures XRay, CTs & MRIs X-RAY CHEST ONE VIEW, PORTABLE 11/03 IMPRESSION: No acute cardiopulmonary abnormality Dictated by: Jewel Deshpande M.D. on 11/03/2016 at 15:56 Approved by: Jewel Deshpande M.D. on 11/03/2016 at 15:57 PROCEDURE: NM LUNG VQ RADIOPHARMACEUTICAL: 26.8 mCi Tc-99m DTPA aerosol by inhalation and 5.48 mCi Tc- 99m MAA intravenously. INDICATIONS: DVT with shortness of breath and hypoxia TECHNIQUE: Ventilation images were obtained first with Tc-99m DTPA aerosol. Subsequently, perfusion images were acquired after intravenous injection of Tc-99m MAA. Anterior, posterior, GOMEZ, KAYLEIGH, RPO, LPO, left and right lateral views were obtained. COMPARISON: [facility], CR, XR CHEST 2VW, 11/04/2016, 17:31. FINDINGS: An unmatched perfusion defect is present within the anterior segment of the right upper lobe. No other perfusion/ventilation defects visualized. IMPRESSION: 1. Unmatched perfusion defect within the anterior segment of the right upper lobe. No associated abnormality is visualized on the plain film from the same date. No other perfusion defects or ventilation defects. This suggests an intermediate probability of pulmonary embolus. Dictated by: Nila Last M.D. on 11/04/2016 at 21:10 Approved by: Nila Last M.D. on 11/04/2016 at 21:18 PROCEDURE: X-RAY COMPLETE BONE SURVEY ([id number]) INDICATIONS: hypercalcemia, RULE OUT MYELOMA TECHNIQUE: Multiple views obtained of various bony structures as described below. COMPARISON: None. FINDINGS: Skull (lateral): No suspicious bony lesions. No fractures. Thoracic spine (AP, lateral): Bones are osteopenic. No suspicious bony lesions. No acute vertebral body compression fractures. There are moderate degenerative changes including intervertebral disc space narrowing and osteophytosis. Lumbar spine (AP, lateral): Bones are osteopenic. No suspicious bony lesions. No acute vertebral body compression fractures. There is grade I L5 on S1 anterolisthesis. Moderate facet sclerosis is present within the lower lumbar spine. Pelvis (AP): No suspicious bony lesions. No fractures. Overlying soft tissues appear unremarkable. Right and left humeri (AP): No suspicious bony lesions. No fractures. Overlying soft tissues appear unremarkable. Right and left femurs (AP): No suspicious bony lesions. No fractures. Overlying soft tissues appear unremarkable. IMPRESSION: 1. No lytic lesions to suggest multiple myeloma. 2. No acute fracture dislocation. 3. Diffuse osteopenia and degenerative changes of the thoracolumbar spine. Dictated by: Nila Last M.D. on 11/04/2016 at 21:19 Approved by: Nila Last M.D. on 11/04/2016 at 21:21 PROCEDURE: US RENAL SONOGRAM INDICATIONS: rule out kidney stones TECHNIQUE: Real-time scanning was performed of the kidneys and bladder, with image documentation. COMPARISON: [facility], CT, KUB - CT (ABD/PEL W/O CONT), 10/02/2010 , 23:32. FINDINGS: Kidneys: Kidneys are normal in size. Right kidney measures 11.7 cm long; left kidney measures 11.4 cm long. Right renal cortical thickness is 1.5 cm; left renal cortical thickness is 1.6 cm. Renal cortical echotexture is normal. No hydronephrosis or nephrolithiasis. Mild left renal pyelectasis. No suspicious solid mass lesions. Bladder: Pre-void bladder volume is 296 mL. Post-void residual is 96 mL. Pre- void images demonstrate no intraluminal masses or stones. On pre-void images, there ureteral jets are noted with color Doppler interrogation. (Of note, ureteral jets may not be detectable in up to 25% of cases due to insufficient differences in specific gravity between ureteral and bladder urine). Miscellaneous: No free pelvic fluid. IMPRESSION: 1. No visible stones seen bilaterally. 2. Mild left renal pyelectasis. 3. 96 cc PVR. Dictated by: Jose M Wang RRA Interpreted: Neela Oseguera MD on 11/04/2016 at 11: 56 Transcribed by: CHRISTIANO on 11/04/2016 at 11:58 PROCEDURE: CT CHEST, ABDOMEN AND PELVIS WITHOUT CONTRAST ([id number]) INDICATIONS: HYPERCALCEMIA, POSSIBLE HYPERCOAGULABLE STATE TECHNIQUE: After the administration of oral contrast, 5 mm thick sections acquired from the lung apices to the symphysis pubis. 5 mm thick coronal and sagittal reformats acquired, with additional 7 mm coronal MIP reformats through the lungs. For radiation dose reduction, the following was used: automated exposure control, adjustment of mA and/or kV according to patient size. COMPARISON: None. FINDINGS: Image quality: Excellent. CHEST: Lungs and pleura: Small bilateral pleural fluid collections are noted. Patchy airspace opacities noted in the left lung base nonspecific finding may represent pneumonia, aspiration or less likely neoplastic process. Central and peripheral airways are patent are normal in caliber. Mediastinum: Heart size is normal. No pericardial effusion. There is a 2.0 cm short axis superior mediastinal/left paratracheal lymph node. Thoracic aorta and central pulmonary arteries are normal in size. Esophagus is normal in caliber. No hiatal hernia. Chest wall: No axillary or supraclavicular adenopathy by size criteria. Thyroid gland is within normal limits where visualized. ABDOMEN: Solid organs: Liver and spleen are normal in size. Gallbladder is within normal limits. Pancreas is normal in contours. Right adrenal gland is normal in appearance. Mass is noted in the expected region of the left adrenal gland which could be related to lymphadenopathy versus a mass arising from the left adrenal gland. Both kidneys are normal in size, without hydronephrosis or nephrolithiasis. Peritoneum and bowel: Small and large bowel loops are normal in caliber and wall thickness. No free fluid or air. Nodes and vessels: Bulky periaortic retroperitoneal lymphadenopathy is noted. There is a 1.8 cm short axis right internal iliac lymph node. There is a 1.2 cm in short axis left common iliac node. Enlarged bilateral inguinal lymph nodes are noted. Largest right inguinal lymph node measures 1.3 cm in short axis. Largest left inguinal lymph node measures 1.1 cm in short axis. Aorta and inferior vena cava are normal in size. Miscellaneous: No ventral hernias. PELVIS: Genitourinary: Bladder wall thickness is normal. Miscellaneous: No inguinal hernias or adenopathy. Bones: No suspicious bony lesions. No vertebral body compression fractures. IMPRESSION: 1. Small bilateral pleural fluid collections. 2. Patchy airspace opacity in the left lower lobe compatible with aspiration, pneumonia or less likely neoplastic process. 3. Mediastinal, retroperitoneal, pelvic and bilateral inguinal lymphadenopathy highly suspicious for neoplastic process including lymphoma or metastatic disease. 4. Mass lesion in the expected region of the left adrenal gland which may represent retroperitoneal lymphadenopathy encroaching on the left adrenal gland or a mass arising from the left adrenal gland. Dictated by: Manju Neumann MD, PhD on 11/05/2016 at 16:27 Approved by: Manju Neumann MD, PhD on 11/05/2016 at 16:42 Cardiac Echo Impression Echocardiogram Report Name: MARLEEN NEIL GStudy Date : 11/04/2016 Height: 66 in Hospital Exam Location: [facility] Weight: 155 lb Gender: Female BSA: 1.8 m2 : 1935 Age: 81 yrs BP: 140/69 mmHg Reason For Study: EDEMA, DYSPNEA Ordering Physician: HOSPITALIST [facility] Performed By: Juan Box Referring Physician: Adam BAEZA Interpretation Summary The left ventricle is normal in size. The ejection fraction is estimated to be 60-65%. There is mild to moderate tricuspid regurgitation. The right ventricular systolic pressure is estimated at 47 mmHg assuming a right atrial pressure of 3 mm Hg. The ascending aorta is moderately enlarged. Brief History Marleen Neil is a 81 year old female with Chronic leg edema of Lasix who presents to [facility] emergency department from Urgent Care with worsening exertion dyspnea onset two weeks ago. Patient reported the dyspnea has been progressively getting worse with difficulty doing daily activities such as dressing and walking around in her house. Associated symptoms include constipation, fatigue, confusion, decreased appetite, left hip pain, nausea, vomiting, and fatigue. She denies fever, urinary symptoms, chest pain, focal weakness, diaphoresis. She has recently been followed by her PCP for bilateral lower extremity edema with no known cause, treated with Furosemide and lost a few pounds after starting. She stopping taking the Lasix on the recommendations of her family. 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 Patient not currently on any Vitamin D or Calcium supplementations. She was suppose to get an echo and Cardiology evaluation on 12/04/16. Clinic data reviewed: Calcium 10 on 10/17/16. Reported of elevated BP but not diagnosed with Hypertension and not on any blood pressure medications. Hospital Course Marleen Neil is a 81 year old female with Chronic leg edema of Lasix who presents to [facility] emergency department from Urgent Care with worsening exertion dyspnea # Acute Hypercalcemia. Present on admission Etiology includes Primary or Secondary hyperparathyroidim, Adrenal insufficiency , Humoral hypercalcemia of malignancy,Multiple Myeloma, Sarcoidosis. Patient has extensive family history of cancer. CT scan of the chest abdomen and pelvis shows the followin. Small bilateral pleural fluid collections. 2. Patchy airspace opacity in the left lower lobe compatible with aspiration, pneumonia or less likely neoplastic process. 3. Mediastinal, retroperitoneal, pelvic and bilateral inguinal lymphadenopathy highly suspicious for neoplastic process including lymphoma or metastatic disease. 4. Mass lesion in the expected region of the left adrenal gland which may represent retroperitoneal lymphadenopathy encroaching on the left adrenal gland or a mass arising from the left adrenal gland - Surgery and oncology and nephrology were all consulted. - PTH and PTH related peptide were checked -The lymph node biopsy results are still pending, expected to arrive later this week. - Potassium is 3.6 and the calcium was 9.5. # Right lower extremity DVT - Pharmacy is dosing Coumadin, which will be transitioned to the pro time clinic at [facility]. - VQ scan was ordered which showed intermediate probability of pulmonary embolism. As this was a mismatch defect I strongly suspect pulmonary embolism. # Subacute dyspnea with leg edema and new onset yesterday of atrial fibrillation . Subsequently converted after about 4 hours and has not recurred. - Echocardiogram not remarkable - Cardiology evaluation as outpatient. - Now covered with metoprolol 25 mg twice a day. # Acute Kidney injury. Present on admission Suspect secondary to pre renal azotemia due to hypovolemia. # Given patient's hypercalcemia and possibly hypercoagulable state will need to rule out malignancy -Check lymph node biopsy results at her new primary care doctor's office for suspected lymphoma. Exam Vital Signs (Last) Date Time Temp Pulse Resp B/P Pulse Ox O2 Delivery O2 Flow Rate FiO2 11/09/16 10:57 36.7 66 16 147/81 Room Air 11/09/16 05:35 94 2.00 Exam General: Patient appears much more comfortable today. HEENT: Head is atraumatic and normocephalic. Chest: Clear to auscultation bilaterally Heart: Rate, rhythm is regular. There is no murmur, rub or gallop. Extremities: Are well perfused. There is no edema. Neurologic: There are no focal neurological deficits. Psychiatric: Patients mood is calm and she shows no sign of agitation. Test 11/03/16 15:37 11/03/16 19:15 11/03/16 21:50 11/04/16 05:00 Troponin T < 0.010ug/L (0.0-0.011) Pro-B-Type Natriuretic Peptide 782.2pg/mL (0-738) Hold Guzmán Top Tube Received (Received) Calcium (Send out) 13.1mg/dL (8.7-10.3) Parathyroid Hormone Interpretation Comment (.) Total Intact Parathyroid Hormone 10pg/mL (15-65) Urine Color Yellow (YELLOW) Urine Appearance Slightly cloudy Urine pH 6.0 (5.0-8.0) Urine Specific [place] 1.020 (1.003-1.035) Urine Protein Tracemg/dL (NEG,TRACE) Urine Glucose (UA) Negativemg/dL (NEGATIVE) Urine Ketones Negativemg/dL (NEGATIVE) Urine Occult Blood Negative (NEGATIVE) Urine Nitrite Negative (NEGATIVE) Urine Bilirubin Negative (NEGATIVE) Urine Urobilinogen Normalmg/dL (NORMAL) Urine Leukocyte Esterase Small (NEGATIVE) Urine RBC 0-2/hpf (0-2) Urine WBC 6-10/hpf (0-5) Urine Epithelial Cells Moderate/hpf (NONE-MOD) Urine Crystals Oxalic acid crystals (NONE Urine Bacteria Few/hpf (NONE-FEW) Urine Hyaline Casts 5/20/lpf (NONE) Urine Granular Casts None seen (NONE SEEN) Urine Waxy Casts None seen (NONE SEEN) Urine Red Blood Cell Casts None seen (NONE SEEN) Urine White Blood Cell Casts None seen (NONE SEEN) Urine Mucus Present (None Seen) Urine Trichomonas None seen (NONE SEEN) Urine Yeast None (NONE SEEN) Urinalysis Comment None Urine Culture Reflexed Indicated Parathyroid Hormone Related Peptide <1.1pmol/L (.) Test 11/04/16 17:47 11/05/16 06:00 11/06/16 05:40 11/08/16 06:00 Erythrocyte Sedimentation Rate 18mm/hr (0-40) Uric Acid 9.0mg/dL (2.6-7.2) Lactate Dehydrogenase 284U/L (100-190) Globulin (PEP) 3.3g/dL (2.2-3.9) Albumin/Globulin Ratio 0.9 (0.7-1.7) Srppv-4-Fkevgnvul 0.3g/dL (0.0-0.4) Dsfff-0-Aaikykfex 1.0g/dL (0.4-1.0) Beta Globulins 1.0g/dL (0.7-1.3) Gamma Globulins 1.1g/dL (0.4-1.8) Serum Monoclonal Protein Not observedg/dL Protein Electrophoresis Comment Comment (.) Protein Electrophoresis Interpret Comment (.) CA 15-3 Antigen 21.6U/mL (0.0-25.0) CA 19-9 Antigen 5U/mL (0-35) CA 125 Antigen 43.3U/mL (0.0-38.1) Phosphorus Level 3.2mg/dL (2.5-4.9) Thyroid Stimulating Hormone (TSH) 4.150uIU/mL (0.450-4.500) Free Thyroxine 1.16ng/dL (0.82-1.77) Test 11/09/16 05:56 White Blood Count 5.9th/mm3 (3.8-10.1) Red Blood Count 3.95mil/mm3 (3.90-5.20) Hemoglobin 10.5g/dL (12.0-15.6) Hematocrit 34.1% (35.0-46.0) Mean Corpuscular Volume 86.3fL (81-100) Mean Corpuscular Hemoglobin 26.6pg (27.0-35.0) Mean Corpuscular Hemoglobin Concent 30.8% (32.0-37.0) Red Cell Distribution Width 13.6% (12.3-15.4) Platelet Count 249bil/L (150-400) Neutrophils (%) (Auto) 75.8% (40-74) Lymphocytes (%) (Auto) 7.1% (14-46) Monocytes (%) (Auto) 10.5% (4-12) Eosinophils (%) (Auto) 5.8% (0-5) Basophils (%) (Auto) 0.5% (0-3) Prothrombin Time 24.1sec (8.1-12.5) Prothromb Time International Ratio 2.22ratio Sodium Level 145mEq/L (134-144) Potassium Level 3.6mEq/L (3.5-5.2) Chloride Level 107mEq/L (97-108) Carbon Dioxide Level 23mmol/L (18-29) Blood Urea Nitrogen 27mg/dL (8-27) Creatinine 0.92mg/dL (0.57-1.00) Estimat Glomerular Filtration Rate 84mL/min (>59) Glucose Level 102mg/dL (60-99) Calcium Level 9.3mg/dL (8.5-10.1) Magnesium Level 1.7mg/dL (1.6-2.6) Total Bilirubin 0.3mg/dL (0.0-1.2) Aspartate Amino Transf (AST/SGOT) 25U/L (0-50) Alanine Aminotransferase (ALT/SGPT) 21U/L (0-32) Alkaline Phosphatase 53U/L (25-165) Total Protein 5.9g/dL (6.4-8.4) Albumin 3.1g/dL (3.4-5.0) Microbiology Results Name: DENISEMARLEEN Age/Sex: 81/F Attend Dr: Sonny Zepeda MD Acct: [id number] Unit: [id number] Status: ADM IN Location: [facility] [place] 1017-1 Re11/03/16 Disch: Specimen: [id number] Collected: 11/03/16 Status: RES Req#: [id number] Received: 11/03/16 Source: URINE CC Devang Desc : LAURI Cavanaugh Dr: YOEL WHITMORE MD Ordered: URINE CULT Procedure Result Verified Site Microbiology PUJA CULT URINE Preliminary 11/04/16 No growth to date Discharge Medications Discharge Medications ([Patient Own Medication]) 1 DROP DROP 1 DROP LEFT_EYE QID Prescribed by: GEOFFREY BOOKER MD Ascorbic Acid (Vitamin C) 250 Mg Tab.chew 500 MG PO DAILY (Reported) Aspirin (Aspirin) 325 Mg Tablet 325 MG PO DAILY (Reported) Calcium Carbonate (Calcium Carbonate) 500 Mg/5 Ml Oral.susp 500 MG PO DAILY ( Reported) Furosemide (Furosemide) 40 Mg Tablet 40 MG PO DAILY (Reported) States stopped taking bc kimberlypamela who wants to be an MD told her it may be reason pt is short of breath Gluc 2Kcl/Chondr/Jt Hy/Hy AC (Glucosamine & Chondroitin Cap) 1 Each Capsule 1 EACH PO DAILY (Reported) Metoprolol Tartrate (Metoprolol Tartrate) 25 Mg Tablet 25 MG PO BID Prescribed by: GEOFFREY BOOKER MD Multivit with Calcium,Iron,Min (Therapeutic M) 1 Each Tablet 1 EACH PO DAILY ( Reported) Potassium Chloride (Potassium Chloride) 10 Meq Tab.er.prt 10 MEQ PO BID Prescribed by: GEOFFREY BOOKER MD Potassium Gluconate (Potassium Gluconate) 99 Mg Tablet 99 MG PO DAILY (Reported ) Warfarin Sodium (Coumadin) 3 Mg Tablet 3 MG PO DAILY@17 Prescribed by: GEOFFREY BOOKER MD As needed Hydrocodone-Acetaminophen 5-325 mg (Hydrocodone-Acetaminophen 5-325 mg) 1 Each Tablet 1 TABLET PO Q4 PRN PRN For Mild Pain Prescribed by: GEOFFREY BOOKER MD Followup Plan Discharge Diet: No restrictions Discharge Activity: No restrictions Patient Instructions Follow up with the [facility] at [facility] in 2 days. Do not wait longer than 3 days for this check. Call tomorrow to make that appointment. Follow-up Provider: Sylvia Josue DO Follow-up with PCP in: Other (3-4 days) Time spent 60 minutes Eduardo Booker MD Nov 09, 2016 13:05
[2016-11-25] MEDS ORDERED: ASPI-973 PO (12:58)
[2016-11-25] MEDS ORDERED: PRED5DRO6 AFFECT_EYE (12:58)
[2016-12-04] MEDS ORDERED: WARF6TAB6 PO (16:58)
[2016-12-04] MEDS ORDERED: LOV60 SUBQ (16:59)
[2016-12-25] MEDS ORDERED: PRE20 PO (16:43)
[2016-12-25] MEDS ORDERED: ONDA4TAB9 PO (16:43)
== END 2016-11-09 15:12 | disposition home or self-care (01) | DRG 628 ==
LOC: SED 14:09 → OSC 20:09
PROVIDERS: ADMIT Hospitalist; ATTEND Hospitalist
PROC: 07BH0ZX Excision of Right Inguinal Lymphatic, Open Approach, Diagnostic (ICD-10-PCS; principal; 2016-11-06 15:30)
DX: E83.52 Hypercalcemia (principal); I26.99 Other pulmonary embolism without acute cor pulmonale; N17.9 Acute kidney failure, unspecified; I82.411 Acute embolism and thrombosis of right femoral vein; I82.431 Acute embolism and thrombosis of right popliteal vein; C83.36 Diffuse large B-cell lymphoma, intrapelvic lymph nodes; D64.9 Anemia, unspecified; Z87.891 Personal history of nicotine dependence; Z94.7 Corneal transplant status

== ENCOUNTER 2016-12-05 11:43 | Day surgery (SDC) | payer MEDICARE ==
[~2016-12-05] VITALS: Ht 162.6 cm; Wt 67.3 kg
[~2016-12-05 11:43] MED LIST: ASCO250T7 PO; ASPI-973 PO; CeFAZolin Inj 2 GM in IV Premix 1 EACH IV ONE; GLUC-120 PO; LOV60 SUBQ; METO25TA6 PO; PRED5DRO6 AFFECT_EYE; WARF6TAB6 PO
[2016-12-05] MEDS ORDERED: fentaNYL-PF 50 mCg/mL 2 mL Inj ONE (11:44)
[2016-12-05] MEDS ORDERED: Propofol 10,000 mCg/mL 20 mL Inj ONE (11:44)
[2016-12-05] MEDS: Lactated Ringer's 1,000 ML IV SCH ×2 (11:50→12:49)
[2016-12-05] MEDS ORDERED: CeFAZolin Inj 2 gm / 50mL D5W IV ONE (11:59)
[2016-12-05 12:01] VITALS: BP 134/70; PULSE 82; RESP 18; O2SAT 95
--- NOTE | 2016-12-05 12:11 | PCM.HPANE ---
Patient Data Surgeon Admitting Provider: Attending Provider:Elisa Rich MD Primary Care Physician:Sylvia Josue DO Other Provider:Zoila Pageingham Anesthesia Reason for Visit Lymphoma Ht/WT & BMI Height (Feet): 5 Height (Inches): 4 Weight (Kilograms): 67.3 Body Mass Index 25.00 Allergies Coded Allergies: Contrast Media (Verified Allergy, Unknown, UNKNOIWN, 12/04/16) ENTERED FROM UNCODED ALLERGIES Past Anesthesia History Anesthesia History: Denies:: Anesthesia Reactions, Fam Malignant Hypertherm, Malignant Hyperthermia Diabetes History Hx Diabetes?: No MRSA MRSA: No Medications Blood Thinner: Aspirin and Coumadin, Lovenox Last Dose Blood Thinner: Nov 28, 2016 Home Meds Incl Beta Roberto: Yes (METOPROLOL) Active Scripts Metoprolol Tartrate 25 Mg [id number] Mg PO BID #60 TABLET Prov:Eduardo Lopez MD 11/09/16 Reported Medications Enoxaparin (Lovenox)60 Mg/0.6 Ml Zkcyikh47 Mg SUBQ Q12 Ref 0 HOLD PM 12/04/16 DOSE & AM 12/05/16 DOSE 12/04/16 Warfarin Sodium 6 Mg Tablet6 Mg PO DAILY PRN DIRECTED 30 Days 12/04/16 Prednisolone Acetate 5 Ml Drops.susp1 Gtt AFFECT_EYE BID 11/25/16 Aspirin 81 Mg Kzewfd28 Mg PO DAILY Ref 0 11/25/16 Ascorbic Acid (Vitamin C)250 Mg Tab.chew1,000 Mg PO DAILY 30 Days Ref 0 11/03/16 Gluc 2Kcl/Chondr/Jt Hy/Hy AC (Glucosamine & Chondroitin Cap)1 Each Capsule1 Each PO DAILY 11/03/16 Discontinued Reported Medications Furosemide 40 Mg Wpzxse20 Mg PO DAILY 11/03/16 Discontinued Scripts Potassium Chloride 10 Meq Tab.er.prt10 Meq PO BID #14 Prov:Eduardo Lopez MD 11/09/16 Warfarin Sodium (Coumadin)3 Mg Tablet3 Mg PO DAILY@17 #30 TABLET Prov:Eduardo Lopez MD 11/09/16 History History of ENT Problems?: Yes HEENT History: Positive for:: Cataracts (S/P EXTRACTION) Denies:: Glaucoma (S/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/2016) Sinus Problem Denture Type: Full- Upper Full- Lower Teeth Condition: Missing Teeth Hx of Heart Problems?: Yes Cardiovascular History: Positive for:: Abdominal Aortic Aneurism (ASCENDING AORTA MILDLY ENLARGED) Atrial Fibrillation (NEW ONSET PAF ) Congestive Heart Failure (PT STOPPED OWN LASIX ON ADVICE OF HER FAMILY) Edema (CHRONIC) Heart Murmur (hx of murmur, but none heard currently ECHO 10/24 EF 60-65%) Hypertension 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 Skin History: Denies:: History Skin Disorders? 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) Hospitalization (CHILDBIRTH) Denies:: Thyroid Disease History Blood Transfusions: Denies:: Blood Transfuse Reaction Blood Transfusions Hx Diabetes: No Hx Alcohol Use: NoHx Substance Use: No Smoking Status: Former Smoker Have You Smoked inLast 12 mo: No Stop/Bang S-Snoring: Do You Snore Loudly: Yes T-Tired: feel tired, fatigued: Yes O-Obsered: Observed not breath: No P-Blood Pressure: treated: Yes B- Body Mass Index > 35 kg/m2: No A- Age over 50: Yes N- Neck Large Circumference: No G- Gender Male: No TAWNYA Total Score: 4 TAWNYA Risk Assessment: High Risk, =/>3 Yes TAWNYA Category 2: Yes Risk Assessment Category Category 1A: Patient has history of documented sleep apnea, and HAS NOT received any narcotic, sedative or anesthesia administration during this stay. Category 1B: Patient has history of documented sleep apnea, and HAS received any narcotic , sedative or anesthesia administration during this stay Category 2: Patient has SUSPECTED Obstructive Sleep Apnea, and HAS received any narcotic , sedative or anesthesia administration during this stay. Category 3: Patient has SUSPECTED Obstructive Sleep Apnea and HAS NOT received narcotic, sedative or anesthesia administration during this stay. Category 4: Outpatient in Procedural Areas with known sleep apnea or who screen positive for High Risk via the STOP/BANG questionnaire. Exam Exam Vital Signs Vital Signs Date Time Temp Pulse Resp B/P Pulse Ox O2 Delivery O2 Flow Rate FiO2 12/05/16 12:01 37.0 82 18 134/70 95 Room Air General Appearance: Alert, Oriented X3, Cooperative, No Acute Distress HEENT/AIRWAY: MP 2, Neck Movement Lungs: Clear to Auscultation, Normal Air Movement Heart: Exam Unremarkable, Regular Rate/Rhythm, No Murmurs/Rubs/Gallops Meds/Labs/Diagnostics Admission Meds Current Medications Lactated Ringer's (Lr) 1,000 ml @ 120 mls/hr Q8H20M IV Last administered on t 11:50; Start 12/05/16 at 05:00; Stop 12/05/16 at 13:19 Plan Impression Patient chart reviewed, patient interviewed and anesthestic plan with risks, benefits, and alternatives discussed, and informed consent obtained. ASA Physical Status: ASA3 Severe Disease Anesthetic Plan: MAC Bene/Risks/Altern/Consents: Yes HP Complete Prior to Induction: Yes London Valle MD Dec 05, 2016 12:11
[2016-12-05 12:15] VITALS: BP 134/70; PULSE 82; RESP 18; O2SAT 95
[2016-12-05 12:34] LABS: INR 0.98 ratio
[2016-12-05] MEDS ORDERED: Bupivacaine-MPF 0.5% 30 mL Inj INJ ONE (13:05)
[2016-12-05 14:05] VITALS: BP 111/54; PULSE 74; RESP 14; O2SAT 95
--- NOTE | 2016-12-05 14:37 | PCM.ANEP2 ---
Post Anesthesia Evaluation ASA/CMS Post Anesthesia VS in Patient's Normal Range?: Yes Resp Stable; Airway Patent?: Yes CV Function & Hydration Stable: Yes Mental Status Recovered?: Yes Pain control Satisfactory?: Yes N/V Control Satisfactory?: Yes London Valel MD Dec 05, 2016 14:37
--- NOTE | 2016-12-05 14:37 | PCM.ANEP1 ---
Post Anesthesia Phase 1 PACU Phase 1 Assessment Vital Signs Vital Signs Date Time Temp Pulse Resp B/P Pulse Ox O2 Delivery O2 Flow Rate FiO2 12/05/16 14:05 36.7 74 14 111/54 95 Room Air 12/05/16 12:15 37.0 82 18 134/70 95 Room Air 12/05/16 12:01 37.0 82 18 134/70 95 Room Air Anesthetic Administered: GA Level of Alertness: Awake, talking MICHELLE's with Equal Strength: Yes Pain: No Nausea or Vomiting: No Oxygen Delivery: Room Air Lungs: Clear to Auscultation, Normal Air Movement Dermatome Level: Full Sensation London Valle MD Dec 05, 2016 14:37
--- NOTE | 2016-12-05 14:53 | DRSVH ---
PROCEDURE: X-RAY CHEST ONE VIEW, PORTABLE ([id number]) INDICATIONS: Port placement TECHNIQUE: One view of the chest was acquired. COMPARISON: [facility], CR, XR CHEST 1VW (PORTABLE), 11/03/2016, 15:35. FINDINGS: Surgical changes and devices: Left subclavian chest port present tip projected over the mid superior vena cava Lungs and pleura: No pleural effusions or pneumothorax. Lungs are clear. Mediastinum: Mediastinal contours appear normal. Heart size is normal. Bones and chest wall: No suspicious bony lesions. Overlying soft tissues appear unremarkable. IMPRESSION: No immediate complications status post left chest port placement. Dictated by: Jose M HOLGUIN Interpreted: Manju Neumann MD on 12/05/2016 at 14:52 Transcribed by: NOLAN on 12/05/2016 at 14:52 Approved by: Manju Neumann MD, PhD on 12/05/2016 at 16:39
[2016-12-05 15:04] VITALS: BP 113/58; PULSE 77; RESP 16; O2SAT 96
--- NOTE | 2016-12-05 16:09 | OP ---
[address] [id number] OPERATIVE REPORT PATIENT: PAXTON WALKER : 1935 MR#: [id number] ADMIT: 12/05/2016 JOB ID: [id number] DATE OF SURGERY: 12/05/2016 PREOPERATIVE DIAGNOSIS(ES): Lymphoma. POSTOPERATIVE DIAGNOSIS(ES): Lymphoma. PROCEDURE PERFORMED: Left subclavian tunneled central venous catheter placement with subcutaneous port placement with intraoperative fluoroscopy. SURGEON: Elisa Rich MD. IMPORT/EXPORT FREIGHT FORWARDER: None. COMPLICATIONS: None. CONDITION OF THE PATIENT: Stable. INDICATIONS: The patient is a 81-year-old lady who was sent to me by Dr. Xie with a recent diagnosis of lymphoma, along with deep vein thrombosis. She has been on warfarin and after bridging her off the warfarin onto the Lovenox she comes in today for a tunneled central venous catheter placement in the operating room. PROCEDURE DETAILS: She was placed in a supine position. Underwent sedation. The neck and chest were prepped and draped in the usual sterile fashion. Surgical time-out was undertaken using safety checklist, and all were in agreement. She was placed in Trendelenburg position, and I accessed the left subclavian vein under Seldinger technique, and confirmed wire placement fluoroscopically. After that, I made a pocket over the left pectoralis and anchored the low-profile port and cut the catheter to the measured length required based on wire placement. After that, I advanced the introducer dilator over the wire and removed the dilator and the wire and threaded the catheter through the introducer sheath into the vasculature. At this point, when I tried to aspirate the catheter, I did not get a good return, prompting me to repeat a fluoroscopy, at which point, it looked like the catheter was kinking in the superior vena cava again. At this point, I withdrew the catheter, and after checking again to make sure it is aspirating and flushing well, repeated the fluoroscopy and found the catheter to be lying without any kinks and shortened the catheter and reattached it to the port and anchored it into the chest wall. I flushed the catheter with 100 units/mL of heparin and closed the skin with 4-0 Monocryl. Dermabond was applied as a dressing and she was recovered from anesthesia and was taken to the recovery room in stable condition. Final x-ray showed no complications with catheter to be in good position in the PACU.
[2016-12-25] MEDS ORDERED: ONDA4TAB9 PO (16:43)
[2016-12-25] MEDS ORDERED: PRE20 PO (16:43)
== END 2016-12-05 23:59 | disposition home or self-care (01) ==
LOC: SAS 11:43
PROVIDERS: ATTEND Student in an Organized Health Care Education/Training Program
DX: C83.32 Diffuse large B-cell lymphoma, intrathoracic lymph nodes (principal); I82.4Z1 Acute embolism and thrombosis of unspecified deep veins of right distal lower extremity; I26.99 Other pulmonary embolism without acute cor pulmonale; I48.0 Paroxysmal atrial fibrillation; Z79.01 Long term (current) use of anticoagulants
CPT/HCPCS: 36415; 36561; 71010; 77001; 85610; C1788; C1894; J0690; J2250; J3010; J7120

== ENCOUNTER 2016-12-13 13:30 | Inpatient (IN) | payer MEDICARE, OTHER ==
[2016-12-13] VITALS (7 sets, daily range): BP systolic 104–127; BP diastolic 58–72; PULSE 80–95; RESP 12–25; O2SAT 92–99
[~2016-12-13] VITALS: Ht 162.6 cm; Wt 65.1 kg
[~2016-12-13 13:30] MED LIST changes: -CeFAZolin Inj 2 GM in IV Premix 1 EACH IV ONE
--- NOTE | 2016-12-13 15:12 | ED.REPORT ---
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 Patient had left subclavian central venous catheter placed on 12/05. Her symptoms have become increasingly worse since onset. The SOB exacerbated when walking and relieved during rest. Patient's last INR (12/12) was above 3. She is currently taking Coumadin. She denies cough, fever or palpitations. Patient is scheduled to see Dr. Xie in a few weeks to discuss treatment. Nursing Notes Stated Complaint: SOB Chief Complaint: Respiratory Complaints Nursing Notes Reviewed: Yes Allergies: Coded Allergies: No Known Allergies (Unverified , 12/13/16) Scheduled Ascorbic Acid (Vitamin C) 250 Mg Tab.chew 1,000 MG PO DAILY Aspirin (Aspirin) 81 Mg Tablet 81 MG PO DAILY Gluc 2Kcl/Chondr/Jt Hy/Hy AC (Glucosamine & Chondroitin Cap) 1 Each Capsule 1 EACH PO BID Metoprolol Tartrate (Metoprolol Tartrate) 25 Mg Tablet 25 MG PO BID Prednisolone Acetate (Prednisolone Acetate) 5 Ml Drops.susp 1 GTT AFFECT_EYE BID Warfarin Sodium (Warfarin Sodium) 3 Mg Tablet 3 MG PO Thursday and Thursday Scheduled PRN Warfarin Sodium (Warfarin Sodium) 6 Mg Tablet 6 MG PO DAILY PRN PRN DIRECTED General Time Seen by MD: 15:11 Chief Complaint Shortness of breath Hx Obtained From: Patient Arrived By: Walk-in Sudden in Onset?: No Onset Occurred: 3 days ago Symptom Duration: Since onset Location: : None Associated with: Denies: Cough, Fever Pertinent Negative: Pt denies other symptoms Recent Healthcare: Recent doctor visit, Recent hospitalization Past Medical History Past Medical History Notes: PCP: Dr. Sylvia Camacho Oncologist: Dr. 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 2. Dyspnea (CORDOVA) 3. Pulmonary Embolism 4. Abdominal Aortic Aneurism 5. Atrial Fibrillation 6. Congestive Heart Failure (PT STOPPED OWN LASIX ON ADVICE OF HER FAMILY) 7. Bilateral lower extremity edema treated with Furosemide 8. Heart Murmur (hx of murmur, but none heard currently ECHO 10/24 EF 60-65%) 9. Hypertension 10. Thrombophlebitis (RT LE DVT) 11. Valvular Heart Disease (MILD-MOD TR) 12. Cataracts Past Surgical History 1. 12/05/16: Left subclavian tunneled central venous catheter placement with subcutaneous port placement with intraoperative fluoroscopy 2. Cataracts extraction Smoking History Former Smoker Social History Other Social History: Good social support Ambulatory Status Independent Review of Systems Constitutional: Denies: Chills, Fever Respiratory: Reports: Shortness of breath, Denies: Non-productive cough Cardiovascular: Denies: Palpitations Complete sys rev & neg: except as marked. GI: Denies: Nausea, Vomiting Neurologic: Denies: Change LOC Physical Exam Initial Vital Signs Vital Signs (First) Date Time Temp Pulse Resp B/P Pulse Ox O2 Delivery O2 Flow Rate FiO2 12/13/16 13:38 37.0 85 12 104/69 96 Initial VS: Reviewed Head / Eyes: Atraumatic, Normocephalic, PERRL Extremities: Vascular intact, Neuro intact, No swelling, No tenderness Skin: Warm, Dry, No cyanosis Neurologic: Alert, Oriented, Nonfocal Psychiatric: Mood/affect normal, Behavior normal, Normal thought content General/Constitutional: Awake, Alert, No acute distress Neck: Atraumatic, Supple Respiratory / Chest: Atraumatic, Breath sounds NL, Breath sounds = bilat, No respiratory distress Cardiovascular: Heart rate NL, Regular rhythm, Heart sounds NL, No gallop, No murmurs, No rubs CARDIO: Port cath site normal Abdomen: Atraumatic, Soft, Non-tender Trauma - General: Positive: Contusion (Bruise to anterior abdominal wall) Interpretation & Diagnostics Lab Results Interpretation Result Diagram: 12/13/16 1550 12/13/16 1550 Test 12/13/16 15:50 12/13/16 16:45 White Blood Count 4.1th/mm3 (3.8-10.1) Red Blood Count 3.75mil/mm3 (3.90-5.20) Hemoglobin 10.0g/dL (12.0-15.6) Hematocrit 31.5% (35.0-46.0) Mean Corpuscular Volume 84.0fL (81-100) Mean Corpuscular Hemoglobin 26.7pg (27.0-35.0) Mean Corpuscular Hemoglobin Concent 31.7% (32.0-37.0) Red Cell Distribution Width 17.4% (12.3-15.4) Platelet Count 303bil/L (150-400) Neutrophils (%) (Auto) 85.6% (40-74) Lymphocytes (%) (Auto) 3.2% (14-46) Monocytes (%) (Auto) 9.0% (4-12) Eosinophils (%) (Auto) 1.2% (0-5) Basophils (%) (Auto) 0.5% (0-3) Prothrombin Time 32.5sec (8.1-12.5) Prothromb Time International Ratio 2.97ratio Sodium Level 135mEq/L (134-144) Potassium Level 3.9mEq/L (3.5-5.2) Chloride Level 95mEq/L (97-108) Carbon Dioxide Level 24mmol/L (18-29) Blood Urea Nitrogen 37mg/dL (8-27) Creatinine 1.24mg/dL (0.57-1.00) Estimat Glomerular Filtration Rate 60mL/min (>59) Glucose Level 88mg/dL (60-99) Calcium Level 14.3mg/dL (8.5-10.1) Total Bilirubin 0.3mg/dL (0.0-1.2) Aspartate Amino Transf (AST/SGOT) 32U/L (0-50) Alanine Aminotransferase (ALT/SGPT) 12U/L (0-32) Alkaline Phosphatase 51U/L (25-165) Troponin T < 0.010ug/L (0.0-0.011) Pro-B-Type Natriuretic Peptide 418.3pg/mL (0-738) Total Protein 6.6g/dL (6.4-8.4) Albumin 3.3g/dL (3.4-5.0) Hold Guzmán Top Tube Received (Received) Urine Color Straw (YELLOW) Urine Appearance Clear (CLEAR,HAZY) Urine pH 5.5 (5.0-8.0) Urine Specific [place] 1.015 (1.003-1.035) Urine Protein Negativemg/dL (NEG,TRACE) Urine Glucose (UA) Negativemg/dL (NEGATIVE) Urine Ketones Negativemg/dL (NEGATIVE) Urine Occult Blood Negative (NEGATIVE) Urine Nitrite Negative (NEGATIVE) Urine Bilirubin Negative (NEGATIVE) Urine Urobilinogen Normalmg/dL (NORMAL) Urine Leukocyte Esterase Trace (NEGATIVE) Urine RBC 0-2/hpf (0-2) Urine WBC 0-5/hpf (0-5) Urine Epithelial Cells Few/hpf (NONE-MOD) Urine Crystals None seen (NONE SEEN) Urine Bacteria Few/hpf (NONE-FEW) Urine Hyaline Casts None/lpf (NONE) Urine Granular Casts None seen (NONE SEEN) Urine Waxy Casts None seen (NONE SEEN) Urine Red Blood Cell Casts None seen (NONE SEEN) Urine White Blood Cell Casts None seen (NONE SEEN) Urine Mucus None seen (None Seen) Urine Trichomonas None seen (NONE SEEN) Urine Yeast None (NONE SEEN) Urinalysis Comment None Urine Culture Reflexed Indicated ECG Interpretation ECG Interpretation: Normal sinus rhythm Rate [address] No ischemic changes No ST elevation Baseline Time: 16:02 Interpreted by: ED physician X-Ray Chest Interpretation Chest Xray Interpretation: IMPRESSION: Right base small pleural effusion and pneumonia versus subsegmental atelectasis. Dictated by: Brock Bai M.D. on 12/13/2016 at 16:37 Interpretation / Wet Read by: Interpret - Radiologist CT Chest Interpretation IMPRESSION: L. Definite bilateral moderate amount of pulmonary embolus in the lower lungs 2. Bilateral trace left and small to moderate right pleural effusions and small amount of ascites. 3. Adenopathy involving the neck, mediastinum, and periaortic areas in the abdomen as well as the axillary regions and subpectoral regions. The distribution would be highly suspicious for lymphoma or less likely metastatic disease. Similar distribution as seen on the CT scan of 11/05/16. Since the previous CT scan the effusions have increased. The para-aortic adenopathy at the level of the celiac axis on the left side has definitely increased in size. Axillary adenopathy may be slightly increased in size as well. Dictated by: Brock Bai M.D. on 12/13/2016 at 19:09 Dr. Hayes is aware of the findings. Study type: CT pulm angiogram Interpretation / Wet Read by: Interpret - Radiologist Re-Eval/Medical Decision Med Decision/Clinical Course 81-year-old female with complex history presenting with dyspnea. She is therapeutic on warfarin but has pulmonary emboli on CT today. It is not fully cleared to be that these are acute and she has recently had pulmonary emboli also. She is also hypercalcemic today. Patient was given saline and Lasix to initiate diuresis of calcium, further actions on pulmonary emboli management are deferred to the hospitalist service given that she is therapeutic on warfarin already. Re-Evaluation/Progress : Time of Eval: 17:07 Patient Status: Condition improved Re-Evaluation/Progress Note: Patient reports that she has a history of hypercalcemia. She is informed of the plan to admit after obtaining a CT. She reports an allergy to contrast due to vomiting, however, I have not found any previous records of previous constrast use. I discussed this with the tech and plan to proceed with the CT angio of the chest. Consultation : Referral / Consult Name: Lizzjose jpiperMaddisonpauline Tesfaye DO Consulted With: Hospitalist Call Returned at: 19:41 Line Producer: Will see patient, Agrees with eval, Agrees with plan, Accepts admit Counseled Regarding: Diagnosis, Lab results, Need for admission Discharge & Departure Impression: Primary Impression: Pulmonary embolus Pulmonary embolism type: other Chronicity: acute Acute cor pulmonale presence: without acute cor pulmonale Qualified Code: I26.99 - Other pulmonary embolism without acute cor pulmonale Additional Impression: Hypercalcemia Disposition: ADMITTED TO HOSPITAL Discharge Condition All VS Reviewed: Yes Condition: Stable Referrals: Sylvia Josue DO (PCP) [place] Attestation Portions of this note were transcribed by Helena Dill. I, Dr. Hayes personally performed the history, physical exam and medical decision-making; I reviewed and confirmed the accuracy of the information in the transcribed note. Signed by: Delmar Valentine, 12/13/16 2030. copies to: Sylvia Josue DO; Noah Xie MD, Donald L MD Dec 13, 2016 15:12 HELENA DILL Dec 13, 2016 16:00
[2016-12-13 16:08] LABS: BASOPHILS % (AUTO) 0.5 % (0-3); EOSINOPHILS % (AUTO) 1.2 % (0-5); Mean Corpuscular Hemoglobin 26.7 pg (27.0-35.0); NEUTROPHILS % (AUTO) 85.6 % (40-74); Platelet Count 303 bil/L (150-400)
--- NOTE | 2016-12-13 16:39 | DRSVH ---
PROCEDURE: X-RAY CHEST ONE VIEW, PORTABLE ([id number]) INDICATIONS: dyspnea TECHNIQUE: One view of the chest was acquired. COMPARISON: [facility], CR, XR CHEST 1VW (PORTABLE), 12/05/2016, 14:01. FINDINGS: Surgical changes and devices: There is a steven catheter type catheter from the left subclavian approa ch with the tip into the superior vena cava, unchanged. Lungs and pleura: In the right lung base there is now a small pleural effusion and either infiltrate or subsegmental atelectasis. There right upper lung field and the left lung are clear. Mediastinum: Mediastinal contours appear normal. Heart size is normal. Bones and chest wall: No suspicious bony lesions. Overlying soft tissues appear unremarkable. IMPRESSION: Right base small pleural effusion and pneumonia versus subsegmental atelectasis. Dictated by: Brock Bai M.D. on 12/13/2016 at 16:37 Approved by: Brock Bai M.D. on 12/13/2016 at 16:38
[2016-12-13 16:42] LABS: TROPONIN T < 0.010 ug/L (0.0-0.011)
[2016-12-13] MEDS ORDERED: Furosemide 10 mg/mL 2 mL Inj IVPUSH ONE (16:50)
[2016-12-13] MEDS ORDERED: 0.9% Sodium Chloride 1,000 ML IV ONE (16:50)
[2016-12-13] MEDS ORDERED: Furosemide 10 mg/mL 4 mL Inj IVPUSH ONE (16:55)
[2016-12-13 17:03] LABS: INR 2.97 ratio
[2016-12-13 17:15] LABS: APPEARANCE,URINE CLEAR (CLEAR,HAZY); COLOR,URINE STRAW (YELLOW)
[2016-12-13 17:16] LABS: OCCULT BLOOD,URINE NEGATIVE (NEGATIVE); PH,URINE 5.5 (5.0-8.0); UROBILINOGEN,URINE NORMAL (NORMAL)
[2016-12-13] MEDS ORDERED: WARF3TAB7 PO (18:24)
--- NOTE | 2016-12-13 19:27 | DRSVH ---
PROCEDURE: CT ANGIO CHEST PULMONARY EMBOLISM ([id number]) INDICATIONS: dyspnea, history of PE TECHNIQUE: After the administration of intravenous contrast, 2 mm thick sections acquired from the pulmonary api cash to the posterior costophrenic angles. 3-dimensional maximum intensity projection (MIP) coronal a nd sagittal reformats were then acquired through the thorax. For radiation dose reduction, the follo wing was used: automated exposure control, adjustment of mA and/or kV according to patient size. COMPARISON: Located Within [facility], CR, XR CHEST 1VW (PORTABLE), 12/13/2016, 15:09. FINDINGS: Image quality: Excellent. Pulmonary arteries: Pulmonary arteries demonstrate bilateral definite segmental emboli in the lower lung quarles. Lungs and pleura: There are bilateral effusions the right is small to moderate on the left is small to trays. Pulmonary vasculature slightly prominent. There is bibasilar subsegmental atelectasis. Mini mal infiltrate at the right base cannot be excluded as well. Airways are patent. Mediastinum: Heart size is normal, without pericardial effusion. There is adenopathy in the base of the neck and in the superior mediastinum probably axillary region a bilaterally subpectoral regions bilaterally in the preaortic, aortic pulmonary window and subcarinal areas. In addition there is michelle opathy in the retrocrural area and prominent para-aortic adenopathy around the aorta surrounding the vena cava the right renal artery and the left renal artery and the margins of the film. Thoracic aor ta is normal in caliber and enhancement. Esophagus is normal in caliber, without hiatal hernia. Bones and chest wall: No suspicious bony lesions. Ribs and thoracic spine appear intact throughout. Thyroid gland is incompletely visualized.. Abdomen: Visualized upper abdominal solid organs appear normal in the early arterial phase of enhanc ement. IMPRESSION: L. Definite bilateral moderate amount of pulmonary embolus in the lower lungs 2. Bilateral trace left and small to moderate right pleural effusions and small amount of ascites. 3. Adenopathy involving the neck, mediastinum, and periaortic areas in the abdomen as well as the axi llary regions and subpectoral regions. The distribution would be highly suspicious for lymphoma or le ss likely metastatic disease. Similar distribution as seen on the CT scan of 11/05/16. Since the previous CT scan the effusions have increased. The para-aortic adenopathy at the le heather of the celiac axis on the left side has definitely increased in size. Axillary adenopathy may be slightly increased in size as well. Dictated by: Brock Bai M.D. on 12/13/2016 at 19:09 Dr. Hayes is aware of the findings. Approved by: Brock Bai M.D. on 12/13/2016 at 19:25
--- NOTE | 2016-12-13 20:01 | PCM.HPMED ---
Subjective Date of Service Dec 13, 2016 Primary Provider: Admitting Physician: Elinor Rivers MD Primary Care Physician: Sylvia Josue DO Attending Physician: Elinor Rivers MD Admit Status: From the Emergency Department, Full Admit Chief Complaint: Dyspnea on exertion. . History of Present Illness: Marleen Neil is a 81-year-old female with an extensive past medical history including recently diagnosed with large B-cell lymphoma (11/06/16) and PE now on warfarin, AAA, paroxysmal atrial fibrillation, thrombophlebitis secondary to a right lower extremity DVT and valvular heart disease who presents to [facility] Emergency Department complaining of dyspnea on exertion that began 3 days ago. The patient had left subclavian central venous catheter placed on 12/05/16. Her symptoms have become increasingly worse since onset. The dyspnea is exacerbated by exertion and relieved during rest. Patient's last INR (12/12/16) was above 3 for which she had her warfarin dosage adjusted recently. She denies missing any warfarin dosing. She denies headache, vision changes, chest pain, pleuritic pain, cough, fever, palpitations. She does endorse bilateral lower extremity swelling right greater than left which is chronic in nature. Patient is scheduled to see Dr. Xie on 12/23/16 to discuss treatment. Vital signs in the ER: Temperature 37.0. Pulse 85. Respiratory rate 12. Blood pressure 104/69. Pulse ox 96% on room air. The patient received 2L NS and furosemide 20 mg IV x 1. PCP Dr. Sylvia Josue. Review of Systems: A comprehensive review of systems was conducted with the patient and found to be negative except as above in the History of Present Illness. . Allergies Coded Allergies: No Known Allergies (Unverified , 12/13/16) Home Medications Vitamin C 1000 mg daily. Aspirin 81 mg daily. Glucosamine and chondroitin 1 capsule twice a day. Furosemide 40 mg daily. Metoprolol tartrate 25 mg twice a day. Prednisolone acetate 5 mL 1 GTT in each eye twice a day. Warfarin 6 mg on Thursday, Thursday, , Thursday, and Thursday. Warfarin 3 mg on Thursday and Thursday. . PMH 1. 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 2. Recent pulmonary embolism on warfarin. 3. Abdominal Aortic Aneurism. 4. Paroxysmal atrial fibrillation. 5. Bilateral lower extremity edema treated with furosemide. 6. Thrombophlebitis (RT LE DVT). 7. Valvular Heart Disease (MILD-MOD TR). 8. Bilateral cataracts status post bilateral cataract extraction. . Surgical History 1. Left subclavian tunneled central venous catheter placement with subcutaneous port placement with intraoperative fluoroscopy 12/05/16. 2. Bilateral cataract extraction. 3. Left cornea transplant. 4. Right inguinal lymph node biopsy. . Family History Family history of cancer of unknown type in both mother and father. The patient has 5 siblings, 3 sisters and 2 brothers. One of her sisters had breast cancer and is in remission. She has a brother who is from cancer of unknown type. . Social History Hx Alcohol Use: No Hx Substance Use: No Hx Tobacco Use: Yes Smoking Status: Former Smoker (quit 51 years ago, smoked 5 cigarettes a day) Additional Information The patient was born in [facility]. She is . She was for almost 50 years. She has 5 children. . Exam Vital Signs Vital Sign - Last Date Time Temp Pulse Resp B/P Pulse Ox O2 Delivery O2 Flow Rate FiO2 12/13/16 18:26 99 Nasal Cannula 2 12/13/16 18:22 80 25 121/58 12/13/16 13:38 37.0 Exam General: Elderly female lying in bed and in no acute distress, cachectic, appropriately interactive. HEENT: Normocephalic, atraumatic. External ears without defect. Pupils equal, round, and reactive to light. Corneal scar on left eye. Anicteric sclerae, moist conjunctivae, and no lid lag. Oropharynx free of erythema and cobble stoning. Mucous membranes dry. Neck: Supple with full range of motion. No jugular venous distension. No bruits. Mild lymphadenopathy. No thyromegaly. Cardiovascular: Regular rate and rhythm with soft systolic murmur at LUSB. No rubs or gallops appreciated. Left subclavian Port-A-Cath in place with dressing in place, clean and dry. Pulmonary: Clear to auscultation bilaterally with no crackles, wheezes, or rhonchi. Normal respiratory effort with no use of accessory muscles. Abdomen: Soft, nontender, nondistended, bowel sounds present. No hepatosplenomegaly or masses appreciated. Genitourinary: Right inguinal lymph node biopsy scar well healed. No erythema or exudate. Extremities: Bilateral mild lower extremity swelling R>L. Mild erythema of right lower extremity. Skin: Normal temperature, turgor, and texture; no rash, ulcers, or subcutaneous nodules appreciated. Neurological: Cranial nerves grossly intact. No known gait impairment. Psychiatric: Normal mood and affect. Alert and oriented to person, place, and time. . Lab and Diagnostics Labs Item Value Date Time Urine Color Straw 12/13/16 164 Urine Appearance Clear 12/13/16 164 Urine pH 5.5 12/13/16 164 Urine Specific [place] 1.015 12/13/16 164 Urine Protein Negative mg/dL 12/13/16 164 Urine Glucose (UA) Negative mg/dL 12/13/16 164 Urine Ketones Negative mg/dL 12/13/16 164 Urine Occult Blood Negative 12/13/16 164 Urine Nitrite Negative 12/13/16 164 Urine Bilirubin Negative 12/13/16 164 Urine Urobilinogen Normal mg/dL 12/13/16 164 Urine Leukocyte Esterase Trace 12/13/16 1645 Urine RBC 0-2 /hpf 12/13/16 1645 Urine WBC 0-5 /hpf 12/13/16 1645 Urine Epithelial Cells Few /hpf 12/13/16 1645 Urine Crystals None seen 12/13/16 1645 Urine Bacteria Few /hpf 12/13/16 1645 Urine Hyaline Casts None /lpf 12/13/16 1645 Urine Granular Casts None seen 12/13/16 164 Urine Waxy Casts None seen 12/13/16 164 Urine Red Blood Cell Casts None seen 12/13/16 1645 Urine White Blood Cell Casts None seen 12/13/16 1645 Urine Mucus None seen 12/13/16 164 Urine Trichomonas None seen 12/13/16 164 Urine Yeast None 12/13/16 164 Urinalysis Comment None 12/13/16 1645 Urine Culture Reflexed Indicated 12/13/16 1645 Item Value Date Time Prothrombin Time 32.5 sec H 12/13/16 1550 Prothromb Time International Ratio 2.97 ratio 12/13/16 1550 Item Value Date Time Calcium Level 14.3 mg/dL *H 12/13/16 1550 Total Bilirubin 0.3 mg/dL 12/13/16 1550 Aspartate Amino Transf (AST/SGOT) 32 U/L 12/13/16 1550 Alanine Aminotransferase (ALT/SGPT) 12 U/L 12/13/16 1550 Alkaline Phosphatase 51 U/L 12/13/16 1550 Troponin T < 0.010 ug/L 12/13/16 1550 Pro-B-Type Natriuretic Peptide 418.3 pg/mL 12/13/16 1550 Total Protein 6.6 g/dL 12/13/16 1550 Albumin 3.3 g/dL L 12/13/16 1550 Result Diagram: 12/13/16 1550 12/13/16 1550 Microbiology Urine culture pending. . X-Rays, CTs and MRIs X-RAY CHEST ONE VIEW, PORTABLE IMPRESSION: Right base small pleural effusion and pneumonia versus subsegmental atelectasis. Dictated by: Brock Bai M.D. on 12/13/2016 at 16:37 Approved by: Brock Bai M.D. on 12/13/2016 at 16:38 CT ANGIO CHEST PULMONARY EMBOLISM IMPRESSION: 1. Definite bilateral moderate amount of pulmonary embolus in the lower lungs 2. Bilateral trace left and small to moderate right pleural effusions and small amount of ascites. 3. Adenopathy involving the neck, mediastinum, and periaortic areas in the abdomen as well as the axillary regions and subpectoral regions. The distribution would be highly suspicious for lymphoma or less likely metastatic disease. Similar distribution as seen on the CT scan of 11/05/16. Since the previous CT scan the effusions have increased. The para-aortic adenopathy at the level of the celiac axis on the left side has definitely increased in size. Axillary adenopathy may be slightly increased in size as well. Dictated by: Brock Bai M.D. on 12/13/2016 at 19:09 Dr. Hayes is aware of the findings. Approved by: Brock Bai M.D. on 12/13/2016 at 19:25 . 12-lead ECG EKG: Sinus rhythm, heart rate 82, normal axis, baseline artifact present throughout every lead, normal intervals, poor R-wave progression, no pathological Q waves or acute ischemic changes such as ST elevation or depression. . Assessment & Plan Marleen Neil is a 81-year-old female with an extensive past medical history including recently diagnosed with large B-cell lymphoma (11/06/16) and PE now on warfarin, AAA, paroxysmal atrial fibrillation, thrombophlebitis secondary to a right lower extremity DVT and valvular heart disease who presents to [facility] Emergency Department complaining of dyspnea on exertion that began 3 days ago. 1. Dyspnea in setting of bilateral pulmonary emboli, present on admission. Active. - Patient presented with dyspnea on exertion in context of recent pulmonary emboli therapeutic on warfarin and B-cell lymphoma. - Patient is therapeutic on warfarin with an INR of 2.97. - CT angiogram demonstrated bilateral moderate amount of pulmonary embolus in the lower lungs, as above. These possibly may be claims service representative of chronic pulmonary emboli versus acute on chronic. - Ordered bilateral Doppler ultrasound of lower extremities to assess for new DVT burden. - Patient does not appear to have infectious source. Low threshold to start broad-spectrum antibiotics. - Will continue warfarin dosing per pharmacy pending hematology/oncology recommendations. - Paged hematology/oncology waiting for return phone call from Dr. Waddell to discuss anticoagulation versus IVC filter as this may represent warfarin failure. 2. Acute kidney injury, present on admission. Active. - Likely secondary to prerenal azotemia as patient reports decreased PO intake and she is on chronic diuresis with furosemide. - Baseline creatinine 0.92. - Ordered IV fluids with NS at 100 mL/hr. - Avoid nephrotoxic agents. - Monitor urine output and renal function daily. 3. Hypercalcemia, chronic, present on admission. Active. - Likely secondary to neoplasm in the setting of dehydration. - Ordered IV fluids with NS at 100 mL/hr. - Continue to monitor closely on telemetry. - Will discuss treatment with Dr. Waddell. 4. Normocytic anemia, possibly chronic. Active. - Likely secondary to chronic disease. - No overt signs of bleeding. - Continue to monitor hemoglobin and hematocrit daily. Chronic problems: 5. Diffuse large B-cell lymphoma, present on admission. Active. - Patient is planning to establish care with Dr. Xie on 12/23/2016. - Patient recently had a left subclavian Port-A-Cath placed on 12/05/2016 for future chemotherapy. 6. Paroxysmal atrial fibrillation. Inactive. - [id number] score is a 1.0. - Continue metoprolol tartrate 25 mg twice a day. - Continue to monitor on telemetry. 7. Bilateral peripheral edema, chronic. - Held furosemide 40 mg daily for now. - Ordered bilateral Doppler ultrasound of lower extremities. 8. Recent left cornea transplant. - Continue prednisolone eyedrops. PRN antiemetics: Zofran and Maalox. PRN bowel regimen: Senna and MiraLAX. PRN analgesics: Tylenol. Patient is admitted under inpatient status with expected length of stay greater than 2 midnights due to severity of presenting symptoms, risk of adverse event, and complexity of treatment plan. . Resuscitation Status: DNR/DNI:Do Not Resuscitate/Intubate Attending Statement The patient was seen and examined together with house staff on 12/13/2016 and I agree with the history, exam and plan as outlined in the note above. copies to: Sylvia Josue Georgia M DO Dec 13, 2016 20:01 Maddison Barroso DO Dec 14, 2016 02:34
[2016-12-13] MEDS ORDERED: Ondansetron 2 mg/mL 2 mL Inj IVPUSH PRN (21:10)
[2016-12-13] MEDS ORDERED: Alum-Mag Hydrox-Simeth 30 mL Suspension PO PRN (21:10)
[2016-12-13] MEDS ORDERED: Polyethylene Glycol (PEG) 17 Gm Powder PO PRN (21:10)
[2016-12-13] MEDS: 0.9% Sodium Chloride 1,000 ML IV SCH (21:44)
[2016-12-13] MEDS ORDERED: DENOSUMAB 120 MG/1.7 ML SUBQ SCH (22:05)
--- NOTE | 2016-12-13 22:13 | NUR ---
[place]AL [place] [facility] [place] Pt arrived to [facility] [place] [address] approx 2014. Pt alert and oriented, able to ambulate to bed. VS obtained. Pt on RA. Pt denies SOB at this time. Pt denies any pain. Pt placed on remote telemetry. Admitting resident in room at time of arrival. IVF administered per orders. Continue to monitor. Call light in reach. Bed alarm on. Intentional rounding.
[2016-12-14] VITALS (9 sets, daily range): BP systolic 96–112; BP diastolic 56–68; PULSE 73–85; RESP 16; O2SAT 83–94
[2016-12-14 04:30] LABS: BASOPHILS % (AUTO) 0.9 % (0-3); EOSINOPHILS % (AUTO) 2.8 % (0-5); Mean Corpuscular Hemoglobin 26.3 pg (27.0-35.0); NEUTROPHILS % (AUTO) 79.1 % (40-74); Platelet Count 264 bil/L (150-400)
[2016-12-14 04:49] LABS: INR 2.93 ratio
[2016-12-14 04:58] LABS: Magnesium 1.8 mg/dL (1.6-2.6)
--- NOTE | 2016-12-14 05:21 | NUR ---
OXYGEN NEEDS [place] [facility] [place] RA, able to maintain low to mid 90s oxygen saturation. Pt denies SOB. Pt remained on RA during remainder of shift, until end of shift VS. Pt was asleep, per [employer], pts oxygen saturations in low 80s, but pt denied SOB. Pt placed back on 2L, as pt had been on oxygen in the ER. Oxygen saturations improved to low to mid 90s. Continue to monitor. Call light in reach. Bed alarm on. Intentional rounding.
[2016-12-14] MEDS: 0.9% Sodium Chloride 1,000 ML IV SCH (07:53)
[2016-12-14] MEDS: PrednisoLONE 1% 5 mL Ophthalmic Suspension BOTH_EYES SCH ×2 (07:54→19:30)
--- NOTE | 2016-12-14 10:02 | DRSVH ---
PROCEDURE: US VENOUS LEG DUPLEX BILATERAL INDICATIONS: leg swelling, recent DVT and PE TECHNIQUE: Real-time imaging, as well as color and pulse Doppler interrogation, were performed of the deep veins of both legs from the inguinal ligament to the popliteal fossa. COMPARISON: [facility], CT, CT ANGIO CHEST PE, 12/13/2016, 18:57. FINDINGS: Noncompressible thrombus is seen within the mid-distal femoral vein, and popliteal vein. Prominent right inguinal lymph node measuring 1.3 cm No evidence of thrombus seen within the left lower extremity. IMPRESSION: Right lower extremity deep venous thrombosis. Mildly enlarged right inguinal lymph node, nonspecific. Findings were personally telephoned to Dr. Ron 1000 hours 12/14/16. Dictated by: Munir Higgins M.D. on 12/14/2016 at 9:43 Approved by: Munir Higgins M.D. on 12/14/2016 at 10:00
--- NOTE | 2016-12-14 11:32 | NUR ---
Social Work-initial assessment: Data:See initial assessment. Pt is a 81 y/o female who was admitted on 12/13/16 for dyspnea, hypercalcemia per H&P. Pt's insurance is [employer] and PCP is Sylvia Josue MD. EMR Reviewed. Pt's readmission score is not available. SW met with pt, dtr Yennifer [phone] to discuss discharge planning, SW role explained. Pt is alert and oriented x3. Pt resides at home alone at [facility] ([facility]) with no stairs. pt drives occasionally remains independent with basic ADLs. Pt uses a 4ww at baseline. Pt has no HH or SNF history. Pt states she is working to complete DPOA/advanced directive and SW requested a copy when completed. Pt has no [employer] continuous churn care or VA benefits. Pt's family to provide transport home at discharge. No further needs assessed at this time. SW provided phone number and plan on white board in room. SW will continue to follow. Assessment:Pt who resides at [facility])alone and is independent at baseline. Plan:Pt to likely discharge home via POV with no needs. SW will continue to follow ANA Castro Addendum: 12/14/16 at 1138 by SRAVANTHI MCFARLANE SS Amended: Links added.
[2016-12-14] MEDS ORDERED: HepLOK Flush 100 unit/mL 5 mL Inj IVFLUSH PRN (12:30)
[2016-12-14] MEDS ORDERED: Sodium Chloride LOK Flush 10 mL Syringe IVFLUSH PRN ×2 (12:30)
[2016-12-14] MEDS: 0.9% Sodium Chloride 250 ML IV SCH (12:30)
[2016-12-14] MEDS ORDERED: Zoledronic Acid 4 mg/5 mL Inj 4 MG in 0.9% Sodium Chloride 100 ML IV ONE (15:30)
[2016-12-14] MEDS ORDERED: SODIUM CHLORIDE 0.9% IV ONE (16:35)
[2016-12-14] MEDS ORDERED: ZOLEDRONIC ACID IV ONE (16:35)
--- NOTE | 2016-12-14 18:41 | NUR ---
Mobility/02 Pt amb to BR, very unsteady. She has been on 1L via NC all shift for comfort. Denies any pain/discomfort. Currently resting, bed in lowest, locked position and call light in reach.
--- NOTE | 2016-12-14 22:52 | PCM.PNMED ---
Subjective Date of Service Dec 14, 2016 Subjective Patient is in examined. Her sons in law were visiting at the time. She says that she wiped some blood to the bathroom this morning, it is not a lot. She denies prior incidents like this. She thinks she may have exerted too much to go to have a bowel movement. She came to the ER because she felt too dyspneic on exertion, denies nausea vomiting, fevers chills no other concerns Exam Vital Signs Vital Sign - Last Date Time Temp Pulse Resp B/P Pulse Ox O2 Delivery O2 Flow Rate FiO2 12/14/16 06:28 85 12/14/16 05:16 37.6 16 108/59 94 Nasal Cannula 2.00 Intake and Output 12/13/16 12/13/16 12/14/16 Cumulative From/Thru 15:00 23:00 07:00 12/13/16 13:38 - 12/14/16 04:01 Intake Total 1000 ml 650 ml 1650 ml Balance 1000 ml 650 ml 1650 ml Intake IV Total 1000 ml 650 ml 1650 ml Exam Gen.: No acute distress laying in bed HEENT: Normocephalic, atraumatic has oxygen via nc. Heart: No S3-S4 murmurs, regular rate and rhythm Lungs: RLL crackles no wheezes Abdomen: Tender nondistended, normal bowel sounds Neuro: No focal deficits Psych: Negative for anxiety Rectal: Examination was performed with an escort in the room. No active reading or external hemorrhoids are seen IVs and Medications IV Fluids NSS 100 mL/h Medications Reviewed: Medications were reviewed in detail Lab and Diagnostics Result Diagram: 12/14/16 04112/[id number]/16409 Microbiology Urine culture pending. . X-Rays, CTs and MRIs X-RAY CHEST ONE VIEW, PORTABLE IMPRESSION: Right base small pleural effusion and pneumonia versus subsegmental atelectasis. Dictated by: Brock Bai M.D. on 12/13/2016 at 16:37 Approved by: Brock Bai M.D. on 12/13/2016 at 16:38 CT ANGIO CHEST PULMONARY EMBOLISM IMPRESSION: 1. Definite bilateral moderate amount of pulmonary embolus in the lower lungs 2. Bilateral trace left and small to moderate right pleural effusions and small amount of ascites. 3. Adenopathy involving the neck, mediastinum, and periaortic areas in the abdomen as well as the axillary regions and subpectoral regions. The distribution would be highly suspicious for lymphoma or less likely metastatic disease. Similar distribution as seen on the CT scan of 11/05/16. Since the previous CT scan the effusions have increased. The para-aortic adenopathy at the level of the celiac axis on the left side has definitely increased in size. Axillary adenopathy may be slightly increased in size as well. Dictated by: Brock Bai M.D. on 12/13/2016 at 19:09 Dr. Hayes is aware of the findings. Approved by: Brock Bai M.D. on 12/13/2016 at 19:25 . [facility] Diagnostic [place] [address] Patient Name: MARLEEN NEIL MR#: [id number] Location: [facility] [place] Ordering Phys: Bobbi Hua DO Date of Service: 12/13/16 2108 P 12-lead ECG EKG: Sinus rhythm, heart rate 82, normal axis, baseline artifact present throughout every lead, normal intervals, poor R-wave progression, no pathological Q waves or acute ischemic changes such as ST elevation or depression. . Assessment & Plan Marleen Neil is a 81-year-old female with an extensive past medical history including recently diagnosed with large B-cell lymphoma (11/06/16) and PE now on warfarin, AAA, paroxysmal atrial fibrillation, thrombophlebitis secondary to a right lower extremity DVT and valvular heart disease who presents to [facility] complaining of dyspnea on exertion that began 3 days ago. 1. Dyspnea in setting of bilateral pulmonary emboli, present on admission. Active. - Patient presented with dyspnea on exertion in context of recent pulmonary emboli therapeutic on warfarin and B-cell lymphoma. - Patient is therapeutic on warfarin with an INR of 2.97. - CT angiogram demonstrated bilateral moderate amount of pulmonary embolus in the lower lungs, as above. These possibly may be patient accounting representative of chronic pulmonary emboli versus acute on chronic. - Ordered bilateral Doppler ultrasound of lower extremities to assess for new DVT burden: - Patient does not appear to have infectious source. Low threshold to start broad-spectrum antibiotics. - Contacted Dr. Waddell today. He states that her finding of pulmonary embolism on her CTA from the time of admission is not new as she had a VQ scan in the previous admit but not a CTA. No ordered to prevent her from going supratherapeutic with her INR again he recommends that we repeat till her INR drops to 2.0 and start her on therapeutic enoxaparin. He will see the patient tomorrow morning. We appreciate his recommendations. We will be holding any further doses of Coumadin. Daily INR are ordered -- DVT scan ordered by night staff showed right LE DVT. A verbal communication of this was given by radiology at 10 AM. Formal report is pending 2. Acute kidney injury, present on admission. Active. - Likely secondary to prerenal azotemia as patient reports decreased PO intake and she is on chronic diuresis with furosemide. - Baseline creatinine 0.92. - Ordered IV fluids with NS at 100 mL/hr. - Avoid nephrotoxic agents. - Monitor urine output and renal function daily. 3. Hypercalcemia, chronic, present on admission. Active. - Likely secondary to neoplasm in the setting of dehydration. - Ordered IV fluids with NS at 100 mL/hr. - Continue to monitor closely on telemetry. -Discussed this with Dr. Waddell who recommended that we give her 1 dose of 3.6 mg Zometa IV . This was done -- Continue monitoring with daily labs 4. Normocytic anemia, possibly chronic. Active.: Her dyspnea may be secondary to hypoxia secondary to anemia - Likely secondary to chronic disease. -Patient has some level of rectal bleeding - Every 4 hours H&H are ordered -- Stool guaiac is sent Chronic problems: 5. Diffuse large B-cell lymphoma, present on admission. Active. - Patient is planning to establish care with Dr. Xie on 12/23/2016. - Patient recently had a left subclavian Port-A-Cath placed on 12/05/2016 for future chemotherapy. 6. Paroxysmal atrial fibrillation. Inactive. - [id number] score is a 1.0. - Continue metoprolol tartrate 25 mg twice a day. - Continue to monitor on telemetry. 7. Bilateral peripheral edema, chronic. - Held furosemide 40 mg daily for now. - Ordered bilateral Doppler ultrasound of lower extremities. 8. Recent left cornea transplant. - Continue prednisolone eyedrops. PRN antiemetics: Zofran and Maalox. PRN bowel regimen: Senna and MiraLAX. PRN analgesics: Tylenol. CODE STATUS do not DO NOT INTUBATE Disposition: Dr. Waddell to see the patient tomorrow morning. Discharge is likely upon improvement of her symptoms and once enoxaparin twice a day doses started. GI Prophylaxis: Proton Pump Inhibitor VTE Prophylaxis: Other (patient was on Coumadin INR today 2.93. Holding off further anticoagulation until INR is 2) Resuscitation Status: DNR/DNI:Do Not Resuscitate/Intubate Caitlin Ron DO Dec 14, 2016 08:01
[2016-12-15] VITALS (7 sets, daily range): BP systolic 97–119; BP diastolic 59–73; PULSE 73–94; RESP 15–18; O2SAT 91–96
--- NOTE | 2016-12-15 00:15 | NUR ---
CARE TRANSFERED TO [facility]; at 2245.
[2016-12-15 04:15] LABS: INR 3.07 ratio
--- NOTE | 2016-12-15 05:59 | NUR ---
LABS; drawn as ordered. H and H has remained stable during the night.
[2016-12-15 06:37] LABS: Mean Corpuscular Hemoglobin 26.3 pg (27.0-35.0)
[2016-12-15] MEDS: PrednisoLONE 1% 5 mL Ophthalmic Suspension BOTH_EYES SCH ×2 (07:40→20:54)
--- NOTE | 2016-12-15 08:32 | PROG NOTE ---
[address] [address] PROGRESS NOTE PATIENT: PAXTON WALKER : 1935 MR#: [id number] ADMIT: 12/13/2016 JOB ID: [id number] DATE: 12/15/2016 SUBJECTIVE: The patient is a 81-year-old patient of my partner, Noah Anne-Marie. He follows her management of recently diagnosed diffuse large B-cell lymphoma. She was hospitalized over the weekend with increased dyspnea. CT angiography on December 13, 2016, showed bilateral moderate pulmonary emboli in the lower lungs. There were small to moderate right pleural effusion and a trace left pleural effusion. Adenopathy in the neck, mediastinum and periaortic areas as well as upper abdomen suspicious for her known lymphoma, and very similar to CT imaging from early November. Doppler ultrasound studies of the right leg showed deep vein thrombosis. There were moderately enlarged right inguinal lymph nodes as well. The patient had been on warfarin as an outpatient after previous V/Q scan showed evidence of clot. Her INR at the time of admission was 2.97, at the upper limit of her desired range between 2.0-3.0. She denied any active bleeding. She has been afebrile. OBJECTIVE: Vitals: T 36.5, P 85, R 16, BP 119/68, O2 saturation 95% on 1 L oxygen by nasal cannula. HEENT: Conjunctivae slightly pale. Mucous membranes moist. Nodes: She has shotty adenopathy in the neck and inguinal regions. Chest: Slightly decreased at the bases. Cardiac exam: Regular rate and rhythm with normal S1, S2. No murmurs appreciated. Abdomen: Soft, nontender. No palpable masses or obvious splenomegaly. Extremities: There is 1+ edema in the right lower extremity, 1+ distal pulses. No calf tenderness. LABORATORIES: WBC 3.1, hemoglobin 8.9, hematocrit 28.8%, platelets 261,000. Sodium 137, potassium 4.0, BUN 26, creatinine 1.16, glucose 79, calcium 12.0, albumin 2.5. ASSESSMENT AND PLAN: 1. Stage IIIA diffuse large B-cell lymphoma: The patient is scheduled to begin systemic treatment with R-CHOP for six cycles after completing her staging evaluation. She may have an upcoming PET scan arranged by Dr. Xie. In addition, he plans to do bone marrow studies tomorrow, either in hospital or in clinic. While she is in the hospital, it may also be useful to obtain her pre-anthracycline cardiac echo. This could also evaluate for evidence of pulmonary hypertension which could be seen with extensive bilateral pulmonary emboli. 2. Hypercoagulable state of cancer, with right lower extremity deep vein thrombosis and bilateral pulmonary emboli: The patient's initial V/Q scan on November 04, 2016, showed an unmatched perfusion defect in the right upper lobe, and she was started on anticoagulation. More extensive evaluation at this time confirms bilateral lower lobe pulmonary emboli and deep vein clot in her right lower extremity. As previous imaging did not include CT angiography, it is unclear how responsive she has been to anticoagulation with warfarin. Nonetheless, given the presence of current findings and increased shortness of breath, recommend switching to Lovenox 1 mg/kg subcutaneously q.12 h. Hold warfarin. Patients with hypercoagulability of malignancy may have improved response to heparin-based therapy. I do not see any definite indication for IVC filter placement at this time, but we will leave further decisions to Dr. Xie. CC: Caitlin Ron DO
--- NOTE | 2016-12-15 10:56 | NUR ---
GURVINDER signed @ 1030 AM
[2016-12-15] MEDS: 0.9% Sodium Chloride 250 ML IV SCH ×2 (12:30→20:59)
--- NOTE | 2016-12-15 16:50 | NUR ---
spiritual care: nurse request pt requested bible and both gideons nt and full bible made available. Pt reflected on her diagnosis, current sense of comfort and support from friends/family.
[2016-12-16] VITALS (8 sets, daily range): BP systolic 103–118; BP diastolic 64–73; PULSE 74–104; RESP 16–18; O2SAT 91–95
--- NOTE | 2016-12-16 00:39 | PCM.PNMED ---
Subjective Date of Service Dec 16, 2016 Subjective Patient is feeling little bit better. She has no other new complaints. Exam Vital Signs Vital Sign - Last Date Time Temp Pulse Resp B/P Pulse Ox O2 Delivery O2 Flow Rate FiO2 12/16/16 00:10 37.3 89 16 116/72 91 Nasal Cannula 1.00 Intake and Output 12/15/16 12/15/16 12/16/16 Cumulative From/Thru 15:00 23:00 07:00 12/13/16 13:38 - 12/15/16 20:50 Intake Total 950 ml 3680 ml Output Total 900 ml 2325 ml Balance 50 ml 1355 ml Intake Oral 950 ml 1786 ml IV Total 1894 ml Output Urine Total 900 ml 2325 ml # Bowel Movements 1 1 Exam General: The patient is lying supine in bed with her head elevated 45. She is in no apparent distress. HEENT: Head is atraumatic and normocephalic. Eyes: Pupils are equally round and reactive to light and accommodation. Extraocular muscles are intact. Sclera are white, anicteric. Subconjunctival mucosa is pink. Ears and nose are unremarkable. Oropharynx: There is no mucosal lesions, there is no thrush, there is no pharyngitis. Neck: Is supple, there are no nodes, or masses or tenderness. Chest: There are decreased breath sounds bilaterally. However, there are no rales, rhonchi, wheezes or rubs. Heart: Rate, rhythm is regular. There is no murmur, rub or gallop. Abdomen: Good bowel sounds are present. Abdomen is soft, nontender, no organomegaly or masses were appreciated. Extremities: There is 2+ pitting edema of both lower extremities right slightly greater than left. There is no cellulitis or rash. Neurologic: There are no focal neurological deficits. Cranial nerves II through XII are intact. There are no sensory or motor deficits. Psychiatric: Patients mood is calm and shows no sign of agitation. Genital: Deferred Rectal: Deferred Lab and Diagnostics Result Diagram: 12/15/16 1450 12/15/16 0614 Microbiology Urine culture pending. . X-Rays, CTs and MRIs X-RAY CHEST ONE VIEW, PORTABLE IMPRESSION: Right base small pleural effusion and pneumonia versus subsegmental atelectasis. Dictated by: Brock Bai M.D. on 12/13/2016 at 16:37 Approved by: Brock Bai M.D. on 12/13/2016 at 16:38 CT ANGIO CHEST PULMONARY EMBOLISM IMPRESSION: 1. Definite bilateral moderate amount of pulmonary embolus in the lower lungs 2. Bilateral trace left and small to moderate right pleural effusions and small amount of ascites. 3. Adenopathy involving the neck, mediastinum, and periaortic areas in the abdomen as well as the axillary regions and subpectoral regions. The distribution would be highly suspicious for lymphoma or less likely metastatic disease. Similar distribution as seen on the CT scan of 11/05/16. Since the previous CT scan the effusions have increased. The para-aortic adenopathy at the level of the celiac axis on the left side has definitely increased in size. Axillary adenopathy may be slightly increased in size as well. Dictated by: Brock Bai M.D. on 12/13/2016 at 19:09 Dr. Hayes is aware of the findings. Approved by: Brock Bai M.D. on 12/13/2016 at 19:25 . [facility] Diagnostic [place] [address] Patient Name: MARLEEN NEIL MR#: [id number] Location: [facility] [place] Ordering Phys: Bobbi Hua DO Date of Service: 12/13/16 2108 P 12-lead ECG EKG: Sinus rhythm, heart rate 82, normal axis, baseline artifact present throughout every lead, normal intervals, poor R-wave progression, no pathological Q waves or acute ischemic changes such as ST elevation or depression. . Assessment & Plan Marleen Neil is a 81-year-old female with an extensive past medical history including recently diagnosed with large B-cell lymphoma (11/06/16) and PE now on warfarin, AAA, paroxysmal atrial fibrillation, thrombophlebitis secondary to a right lower extremity DVT and valvular heart disease who presents to [facility] complaining of dyspnea on exertion that began 3 days ago. # Dyspnea in setting of bilateral pulmonary emboli, present on admission. Active. - Patient presented with dyspnea on exertion in context of recent pulmonary emboli therapeutic on warfarin and B-cell lymphoma. - Patient's Coumadin is supratherapeutic. - CT angiogram demonstrated bilateral moderate amount of pulmonary embolus in the lower lungs, as above. These possibly may be software sales representative of chronic pulmonary emboli versus acute on chronic. - Doppler ultrasound of lower extremities is significant for right lower extremities DVT. - Patient does not appear to have infectious source. Low threshold to start broad-spectrum antibiotics. - Contacted Dr. Waddell today. He states that her finding of pulmonary embolism on her CTA from the time of admission is not new as she had a VQ scan in the previous admit but not a CTA. No ordered to prevent her from going supratherapeutic with her INR again he recommends that we repeat till her INR drops to 2.0 and start her on therapeutic enoxaparin. He will see the patient tomorrow morning. We appreciate his recommendations. We will be holding any further doses of Coumadin. Daily INR are ordered # Acute kidney injury, present on admission. Active. - Likely secondary to prerenal azotemia as patient reports decreased PO intake and she is on chronic diuresis with furosemide. - Baseline creatinine 0.92. - Ordered IV fluids with NS at 100 mL/hr. - Avoid nephrotoxic agents. - Monitor urine output and renal function daily. # Hypercalcemia, chronic, present on admission. Active. - Likely secondary to neoplasm in the setting of dehydration. - Ordered IV fluids with NS at 100 mL/hr. - Continue to monitor closely on telemetry. -Discussed this with Dr. Waddell who recommended that we give her 1 dose of 3.6 mg Zometa IV . This was done -- Continue monitoring with daily labs # Normocytic anemia, possibly chronic. Active.: Her dyspnea may be secondary to hypoxia secondary to anemia - Likely secondary to chronic disease. -Patient has some level of rectal bleeding - Every 4 hours H&H are ordered -- Stool guaiac is sent # Stage IIIA diffuse large B-cell lymphoma: - The patient is scheduled to begin systemic treatment with R-CHOP for six cycles after completing her staging evaluation. She may have an upcoming PET scan arranged by Dr. Xie. In addition, he plans to do bone marrow studies tomorrow, either in hospital or in clinic. While she is in the hospital, it may also be useful to obtain her pre- anthracycline cardiac echo. This could also evaluate for evidence of pulmonary hypertension which could be seen with extensive bilateral pulmonary emboli.Active. - Patient is planning to establish care with Dr. Xie on 12/23/2016. - Patient recently had a left subclavian Port-A-Cath placed on 12/05/2016 for future chemotherapy. # Paroxysmal atrial fibrillation. Inactive. - [id number] score is a 1.0. - Continue metoprolol tartrate 25 mg twice a day. - Continue to monitor on telemetry. 7. Bilateral peripheral edema, chronic. - Held furosemide 40 mg daily for now. He may need to restart Lasix - DVT seen in the right lower extremity on Doppler ultrasound. 8. Recent left cornea transplant. - Continue prednisolone eyedrops. PRN antiemetics: Zofran and Maalox. PRN bowel regimen: Senna and MiraLAX. PRN analgesics: Tylenol. CODE STATUS do not DO NOT INTUBATE Disposition: Patient states that oncology is planning to do a bone marrow biopsy in a.m. Will discuss plan with oncology. Pain Evaluation: Adequate Pain Control GI Prophylaxis: Proton Pump Inhibitor VTE Prophylaxis: Other (The patient was on Coumadin and INR has been supratherapeutic. Holding off further anticoagulation until INR is 2.) VTE Mechanical Devices: Venous Foot Pump Resuscitation Status: DNR/DNI:Do Not Resuscitate/Intubate Eros Paz MD Dec 16, 2016 00:39
--- NOTE | 2016-12-16 05:34 | NUR ---
PT ACTIVITY/INSOMNIA Pt has been up to BR, SBA, pt using call light for assistance. Pt has denied any pain or discomfort. Pt has been c/o insomnia, which occurs at home as well. Noc hospitalist called for melatonin, dose given. Pt states, "it (melatonin) took a while to work, but I did sleep for a couple hours." Continue to monitor. Call light in reach. Bed alarm on. Intentional rounding.
[2016-12-16 06:11] LABS: INR 1.55 ratio
[2016-12-16] MEDS: PrednisoLONE 1% 5 mL Ophthalmic Suspension BOTH_EYES SCH ×2 (08:11→20:29)
[2016-12-16 09:33] LABS: EOSINOPHILS % (AUTO) 3.5 % (0-5); MONOCYTES % (AUTO) 9.6 % (4-12); Mean Corpuscular Hemoglobin 26.5 pg (27.0-35.0); NEUTROPHILS % (AUTO) 80.8 % (40-74); Platelet Count 260 bil/L (150-400)
[2016-12-16 09:48] LABS: Magnesium 1.7 mg/dL (1.6-2.6)
--- NOTE | 2016-12-16 12:07 | DRSVH ---
[facility] [address] [place] [address] Echocardiogram Report Name: PAXTON WALKERudy Date : 12/16/2016 Height: 6 4 in Hospital Exam Location: [facility] Weight: 1 44 lb Gender: Female BSA: 1.7 m2 : 1935 Age: 81 yrs BP: 103/6 4 mmHg Reason For Study: Pulmonary - Hypertension Ordering Physician: HOSPITALIST [facility] Performed By: Brittani Morrison Referring Physician: Sylvia Josue DO Interpretation Summary 1. Small left ventricular cavity with normal wall thickness and systolic function with an estimated EF of 60-65% 2. Upper limits of normal right ventricular size with normal systolic function. The estimated right atrial pressure is low The estimated RVSP is 42 mm Hg (estimated at 47 mm Hg in 10/2016) Compared to the previous study with this limited study, the findings appears relatively stable. Procedure: A two-dimensional transthoracic echocardiogram with color flow and Doppler was performed in limited views only. The study quality was technically adequate. Comparison is made with the echocardiogram of 11/04/2016. The patient was in normal sinus rhythm during the exam. Left Ventricle: Proximal septal thickening is noted. The left ventricular cavity is small. The ejection fraction is estimated to be 60-65%. Assessment of diastolic parameters indicates a relaxation abnormality of the left ventricle, consistent with normal filling pressures. Right Ventricle: The right ventricle is borderline dilated. The right ventricular systolic function is normal. Mitral Valve: The mitral valve is normal in structure and function. There is no mitral regurgitation noted. Aortic Valve: The aortic valve is trileaflet. The aortic valve opens well. Tricuspid Valve: The tricuspid valve leaflets are thin and pliable. There is mild tricuspid regurgitation. The right ventricular systolic pressure is estimated at 42 mmHg assuming a right atrial pressure of 3 mm Hg. Pulmonic Valve: There is a trace or physiologic amount of pulmonic regurgitation. Great Vessels: The IVC is of normal diameter and collapses greater than 50% with a sniff. This suggests a low right atrial pressure of 3 mm Hg. Pericardium/ Pleura There is no pericardial effusion. MMode/2D Measurements & Calculations LVIDd: 3.5 cm IVC diam LV gutierrez. diameter/BSA LV sys. diameter/BSA LVIDs: 2.3 cm : 1.3 cm (cm/m^2): 2.1 (cm/m^2): 1.3 FS: 35.3 % IVSd: 0.91 cm LVPWd: 0.91 cm RVD1 (basal) RVD2 (mid) TAPSE: 2.7 cm : 3.0 cm Doppler Measurements & Calculations MV E max taco MV E/A: 0.64 TR max taco MV dec time : 59.5 cm/sec Med Peak E' Taco : 313.1 cm/sec : 0.22 sec MV A max taco TR max PG : 93.5 cm/sec E/E' med: 7.1 : 39.2 mmHg MV P1/2t: 64.4 msec PA V2 max : 78.1 cm/sec PA mean PG PA Accel Time MV P1/2t max taco PA V2 mean : 54.0 cm/sec MVA(P1/2t): 3.4 cm2 Reading Physician:12:06 PM
[2016-12-16] MEDS ORDERED: Heparin 1,000 Units/mL 2 mL Inj INJ SCH (13:00)
--- NOTE | 2016-12-16 14:20 | PROCED ---
[address] [address] PROCEDURE NOTE PATIENT: PAXTON WALKER : 1935 MR#: [id number] ADMIT: 12/13/2016 JOB ID: [id number] DATE OF SERVICE: 12/16/2016 PREOPERATIVE DIAGNOSIS(ES): POSTOPERATIVE DIAGNOSIS(ES): PROCEDURE: Bone marrow aspiration and biopsy, left posterior iliac crest. SURGEON: Noah Xie MD INDICATIONS: Staging diffuse large B-cell lymphoma. DESCRIPTION OF PROCEDURE: After informed consent was obtained, the LPIC was prepped with Betadine and cleaned with chlorhexidine. Lidocaine 2%, 8 cc, were used for local anesthesia. A 2 mm to 3 mm marilia was made in the skin with an 11-gauge blade. Following this a 14-gauge Jamshidi needle was used to obtain a 5 cc aspirate. This was sent off for Quezada-Giemsa stain, flow cytometry, cytogenetics, and FISH testing. Following this, an 11-gauge Jamshidi needle was inserted in different bone sites and skin sites for a 1 cm core biopsy. COMPLICATIONS: None. The patient will follow up with the results and review in decision-making in one week.
--- NOTE | 2016-12-16 14:52 | PROG NOTE ---
[address] [address] PROGRESS NOTE PATIENT: PAXTON WALKER : 1935 MR#: [id number] ADMIT: 12/13/2016 JOB ID: [id number] DATE: 12/16/2016 PROGRESS NOTE: This is a 81-year-old woman who has been in hospital since December 13 after presenting with a 3-day history of increasing dyspnea on exertion and having had a subclavian central venous catheter placed on December 05. She was found in the emergency department to have bilateral moderate pulmonary emboli but was known to have prior pulmonary emboli as well. As pointed out by Dr. Waddell, the previous study was a V/Q scan because of concern about her kidney function. Current study is an angiogram, so they are not directly comparable, but her symptoms suggest some development of additional pulmonary emboli. She was on warfarin, and at the time of admission had an elevated INR of 2.97, but on December 05 her INR was only 0.98, so at some point in that interval, she may have developed a pulmonary emboli while being inadequately anticoagulated. She was advised to start on Lovenox. She is improving in terms of respiratory status but still is on O2. 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 She was seen with right leg swelling and dyspnea for about two weeks on October 15, 2016, and was found to have an intermediate probability of PE, and Doppler showed a right superficial femoral DVT. She was anticoagulated. Subsequent CT chest, abdomen, and pelvis for hypercalcemia was found to have small bilateral pleural effusions, air space opacities, and mediastinal retroperitoneal pelvic and bilateral inguinal adenopathy. Biopsy of the right inguinal node by Dr. Haro on November 06, 2016 showed diffuse large B-cell lymphoma. Imaging shows adenopathy above and below the diaphragm, so at least stage III. With very general malaise and constitutional symptoms, she is likely a IIIB. Subjectively, she states she feels better since being hospitalized. She still has dyspnea and needs nasal O2. She is weak and tired and does not feel much like getting up and walking around. Head and neck: No headaches, visual changes, sore or dry mouth, eyes, or throat. Lymph nodes: Patient reports no adenopathy palpated by herself. GI: No nausea, but decreased appetite and some weight loss. : No dysuria or other lower urinary tract symptoms. Respiratory: No cough or dyspnea. Cardiac: No exertional chest pain, palpitations, or syncope. Musculoskeletal: Some muscle weakness related to her deconditioning. No joint pain. The remainder of the 14 system review is negative. PHYSICAL EXAMINATION: Vital signs show a temp of 36.5, pulse 74, respiratory 16, blood pressure 109/72, pulse ox 93%. In general, she looks reasonably well. Head and neck exam: She wears glasses. Pupils equal, round, reactive. No icterus. No conjunctivitis. Tongue is dry. Teeth are in fair repair. Neck is supple. Lungs auscultated anteriorly and laterally are clear to auscultation. Cardiac rhythm is regular without murmur or peripheral edema. Abdomen soft, nontender without splenomegaly, hepatomegaly, masses, or ascites. Extremities without deformity, tenderness, or edema. LABORATORY VALUES: Currently, the INR is 1.55 with a PT of 16.7. White count is 3.1, hemoglobin 9.1, hematocrit 28.9, platelets 260. The BUN and creatinine 26 and 1.17. Electrolytes normal. ALT, AST, alkaline phosphatase, bilirubin normal. ASSESSMENT AND RECOMMENDATIONS: Diffuse large B-cell lymphoma. I have encouraged the patient that she should begin treatment as soon as possible. She had wished to wait several months, but I indicated this is an aggressive lymphoma and could result in symptomatic decline if not treated. She did also agree to a bone marrow examination and has had that. A cardiac ejection fraction was performed, and that shows a value of 60% to 65%. Therefore, at this point in time, she is a reasonable candidate, despite her other comorbidities, for initiation of systemic chemotherapy with Rituxan CHOP. The patient is slated to see me in one week to review the bone marrow exam and set up treatment schedule.
--- NOTE | 2016-12-16 17:08 | PCM.CONPHA ---
Subjective Date of Service: Dec 16, 2016 Requesting Provider: Eros Paz MD Dyspnea on exertion. . Reason for Pharmacy Consult: Anticoagulation Management Objective Vital Signs Date Time Temp Pulse Resp B/P Pulse Ox O2 Delivery O2 Flow Rate FiO2 12/16/16 16:21 36.9 86 18 118/73 92 Nasal Cannula 1.00 12/16/16 12:49 36.5 74 16 109/72 93 Nasal Cannula 1.00 12/16/16 12:11 Supplement Oxygen 12/16/16 11:29 80 12/16/16 08:48 36.8 83 18 115/68 92 Nasal Cannula 1.00 12/16/16 05:09 37.2 80 103/64 92 Nasal Cannula 1.00 12/16/16 04:50 81 12/16/16 00:10 37.3 89 16 116/72 91 Nasal Cannula 1.00 12/15/16 20:50 Supplement Oxygen 12/15/16 20:43 36.9 94 18 118/73 94 Nasal Cannula 1.00 12/15/16 17:15 37.1 85 16 112/61 94 Nasal Cannula 1.00 Intake and Output 12/14/16 12/15/16 12/16/16 00:00 00:00 00:00 Intake Total 1000 ml 1510 ml 1170 ml Output Total 800 ml 1525 ml Balance 1000 ml 710 ml -355 ml Weight (Kilograms): 65.500 Height (Feet): 5 Height (Inches): 4.00 Test 12/13/16 15:50 12/13/16 16:45 12/16/16 05:15 12/16/16 15:00 Troponin T < 0.010ug/L (0.0-0.011) Pro-B-Type Natriuretic Peptide 418.3pg/mL (0-738) Hold Guzmán Top Tube Received (Received) Urine Color Straw (YELLOW) Urine Appearance Clear (CLEAR,HAZY) Urine pH 5.5 (5.0-8.0) Urine Specific [place] 1.015 (1.003-1.035) Urine Protein Negativemg/dL (NEG,TRACE) Urine Glucose (UA) Negativemg/dL (NEGATIVE) Urine Ketones Negativemg/dL (NEGATIVE) Urine Occult Blood Negative (NEGATIVE) Urine Nitrite Negative (NEGATIVE) Urine Bilirubin Negative (NEGATIVE) Urine Urobilinogen Normalmg/dL (NORMAL) Urine Leukocyte Esterase Trace (NEGATIVE) Urine RBC 0-2/hpf (0-2) Urine WBC 0-5/hpf (0-5) Urine Epithelial Cells Few/hpf (NONE-MOD) Urine Crystals None seen (NONE SEEN) Urine Bacteria Few/hpf (NONE-FEW) Urine Hyaline Casts None/lpf (NONE) Urine Granular Casts None seen (NONE SEEN) Urine Waxy Casts None seen (NONE SEEN) Urine Red Blood Cell Casts None seen (NONE SEEN) Urine White Blood Cell Casts None seen (NONE SEEN) Urine Mucus None seen (None Seen) Urine Trichomonas None seen (NONE SEEN) Urine Yeast None (NONE SEEN) Urinalysis Comment None Urine Culture Reflexed Indicated White Blood Count 3.1th/mm3 (3.8-10.1) Red Blood Count 3.40mil/mm3 (3.90-5.20) Hemoglobin 9.0g/dL (12.0-15.6) Hematocrit 28.9% (35.0-46.0) Mean Corpuscular Volume 85.0fL (81-100) Mean Corpuscular Hemoglobin 26.5pg (27.0-35.0) Mean Corpuscular Hemoglobin Concent 31.1% (32.0-37.0) Red Cell Distribution Width 17.4% (12.3-15.4) Platelet Count 260bil/L (150-400) Neutrophils (%) (Auto) 80.8% (40-74) Lymphocytes (%) (Auto) 4.8% (14-46) Monocytes (%) (Auto) 9.6% (4-12) Eosinophils (%) (Auto) 3.5% (0-5) Basophils (%) (Auto) 1.0% (0-3) Prothrombin Time 16.7sec (8.1-12.5) Prothromb Time International Ratio 1.55ratio Sodium Level 136mEq/L (134-144) Potassium Level 3.9mEq/L (3.5-5.2) Chloride Level 102mEq/L (97-108) Carbon Dioxide Level 23mmol/L (18-29) Blood Urea Nitrogen 26mg/dL (8-27) Creatinine 1.17mg/dL (0.57-1.00) Estimat Glomerular Filtration Rate 64mL/min (>59) Glucose Level 78mg/dL (60-99) Calcium Level 11.3mg/dL (8.5-10.1) Magnesium Level 1.7mg/dL (1.6-2.6) Total Bilirubin 0.3mg/dL (0.0-1.2) Aspartate Amino Transf (AST/SGOT) 35U/L (0-50) Alanine Aminotransferase (ALT/SGPT) 9U/L (0-32) Alkaline Phosphatase 44U/L (25-165) Total Protein 4.9g/dL (6.4-8.4) Albumin 2.5g/dL (3.4-5.0) Assessment/Plan Assessment/Plan Enoxaprin per Rx Indication: DVT CKD, SCR today : 1.17 Dose: 60mg Q12H per protocol for continuation in outpatient setting, if needed Chi Kent PharmD Dec 16, 2016 17:08
[2016-12-16] MEDS: 0.9% Sodium Chloride 250 ML IV SCH (20:31)
[2016-12-16] MEDS ORDERED: diphenhydrAMINE 25 mg Capsule PO SCH (21:00)
--- NOTE | 2016-12-16 23:16 | PCM.PNMED ---
Subjective Date of Service Dec 16, 2016 Subjective Patient had her bone marrow biopsy this morning and she tolerated it very well. She states that it was minimally painful. She is feeling a little bit better and has no new complaints. Exam Vital Signs Vital Sign - Last Date Time Temp Pulse Resp B/P Pulse Ox O2 Delivery O2 Flow Rate FiO2 12/16/16 20:53 Supplement Oxygen 12/16/16 20:24 36.6 104 16 109/70 95 1.00 Intake and Output 12/15/16 12/15/16 12/16/16 Cumulative From/Thru 15:00 23:00 07:00 12/13/16 13:38 - 12/16/16 06:08 Intake Total 950 ml 386 ml 4066 ml Output Total 900 ml 600 ml 2925 ml Balance 50 ml -214 ml 1141 ml Intake Oral 950 ml 300 ml 2086 ml IV Total 86 ml 1980 ml Output Urine Total 900 ml 600 ml 2925 ml # Bowel Movements 1 1 Exam General: The patient is lying supine in bed with her head elevated 45. She is in no apparent distress. HEENT: Head is atraumatic and normocephalic. Eyes: Pupils are equally round and reactive to light and accommodation. Extraocular muscles are intact. Sclera are white, anicteric. Subconjunctival mucosa is pink. Ears and nose are unremarkable. Oropharynx: There is no mucosal lesions, there is no thrush, there is no pharyngitis. Neck: Is supple, there are no nodes, or masses or tenderness. Chest: There are decreased breath sounds bilaterally. However, there are no rales, rhonchi, wheezes or rubs. Heart: Rate, rhythm is regular. There is no murmur, rub or gallop. Abdomen: Good bowel sounds are present. Abdomen is soft, nontender, no organomegaly or masses were appreciated. Extremities: There is 2+ pitting edema of both lower extremities, right slightly greater than left. There is no cellulitis or rash. Neurologic: There are no focal neurological deficits. Cranial nerves II through XII are intact. There are no sensory or motor deficits. Psychiatric: Patients mood is calm and shows no sign of agitation. Genital: Deferred Rectal: Deferred Lab and Diagnostics Result Diagram: 12/16/1615 12/16/16514 Microbiology Urine culture pending. . X-Rays, CTs and MRIs X-RAY CHEST ONE VIEW, PORTABLE IMPRESSION: Right base small pleural effusion and pneumonia versus subsegmental atelectasis. Dictated by: Brock Bai M.D. on 12/13/2016 at 16:37 Approved by: Brock Bai M.D. on 12/13/2016 at 16:38 CT ANGIO CHEST PULMONARY EMBOLISM IMPRESSION: 1. Definite bilateral moderate amount of pulmonary embolus in the lower lungs 2. Bilateral trace left and small to moderate right pleural effusions and small amount of ascites. 3. Adenopathy involving the neck, mediastinum, and periaortic areas in the abdomen as well as the axillary regions and subpectoral regions. The distribution would be highly suspicious for lymphoma or less likely metastatic disease. Similar distribution as seen on the CT scan of 11/05/16. Since the previous CT scan the effusions have increased. The para-aortic adenopathy at the level of the celiac axis on the left side has definitely increased in size. Axillary adenopathy may be slightly increased in size as well. Dictated by: Brock Bai M.D. on 12/13/2016 at 19:09 Dr. Hayes is aware of the findings. Approved by: Brock Bai M.D. on 12/13/2016 at 19:25 . [facility] [place] [address] Patient Name: MARLEEN NEIL MR#: [id number] Location: [facility] [place] Ordering Phys: Bobbi Hua DO Date of Service: 12/13/16 2108 P 12-lead ECG EKG: Sinus rhythm, heart rate 82, normal axis, baseline artifact present throughout every lead, normal intervals, poor R-wave progression, no pathological Q waves or acute ischemic changes such as ST elevation or depression. . Assessment & Plan Marleen Neil is a 81-year-old female with an extensive past medical history including recently diagnosed with large B-cell lymphoma (11/06/16) and PE now on warfarin, AAA, paroxysmal atrial fibrillation, thrombophlebitis secondary to a right lower extremity DVT and valvular heart disease who presents to [facility] Department complaining of dyspnea on exertion that began 3 days ago. # Dyspnea in setting of bilateral pulmonary emboli, present on admission. Active and improved. - Patient presented with dyspnea on exertion in context of recent pulmonary emboli therapeutic on warfarin and B-cell lymphoma. - Patient's Coumadin was supratherapeutic. And is now subtherapeutic. - CT angiogram demonstrated bilateral moderate amount of pulmonary embolus in the lower lungs, as above. These possibly may be technical sales representative of chronic pulmonary emboli versus acute on chronic. - Doppler ultrasound of lower extremities is significant for right lower extremities DVT. - Patient does not appear to have infectious source. Low threshold to start broad-spectrum antibiotics. - Contacted Dr. Waddell today. He states that her finding of pulmonary embolism on her CTA from the time of admission is not new as she had a VQ scan in the previous admit but not a CTA. No ordered to prevent her from going supratherapeutic with her INR again he recommends that we repeat till her INR drops to 2.0 and start her on therapeutic enoxaparin. He will see the patient tomorrow morning. We appreciate his recommendations. We will be holding any further doses of Coumadin. Daily INR are ordered. - We will begin full dose Lovenox this evening as Coumadin is now subtherapeutic. # Acute kidney injury, present on admission. Active. - Likely secondary to prerenal azotemia as patient reports decreased PO intake and she is on chronic diuresis with furosemide. - Baseline creatinine 0.92. - Ordered IV fluids with NS at 100 mL/hr. - Avoid nephrotoxic agents. - Monitor urine output and renal function daily. # Hypercalcemia, chronic, present on admission. Active. - Likely secondary to neoplasm in the setting of dehydration. - Ordered IV fluids with NS at 100 mL/hr. - Continue to monitor closely on telemetry. -Discussed this with Dr. Waddell who recommended that we give her 1 dose of 3.6 mg Zometa IV . This was done -- Continue monitoring with daily labs # Normocytic anemia, possibly chronic. Active.: Her dyspnea may be secondary to hypoxia secondary to anemia - Likely secondary to chronic disease. -Patient has some level of rectal bleeding - Every 4 hours H&H are ordered -- Stool guaiac is sent # Stage IIIA diffuse large B-cell lymphoma: - The patient is scheduled to begin systemic treatment with R-CHOP for six cycles after completing her staging evaluation. She may have an upcoming PET scan arranged by Dr. Xie. In addition, he plans to do bone marrow studies tomorrow, either in hospital or in clinic. While she is in the hospital, it may also be useful to obtain her pre- anthracycline cardiac echo. This could also evaluate for evidence of pulmonary hypertension which could be seen with extensive bilateral pulmonary emboli.Active. - Patient is planning to establish care with Dr. Xie on 12/23/2016. - Patient recently had a left subclavian Port-A-Cath placed on 12/05/2016 for future chemotherapy. - Patient underwent bone marrow biopsy today. # Paroxysmal atrial fibrillation. Inactive. - [id number] score is a 1.0. - Continue metoprolol tartrate 25 mg twice a day. - Continue to monitor on telemetry. 7. Bilateral peripheral edema, chronic. - Held furosemide 40 mg daily for now. We may need to restart Lasix - DVT seen in the right lower extremity on Doppler ultrasound. 8. Recent left cornea transplant. - Continue prednisolone eyedrops. PRN antiemetics: Zofran and Maalox. PRN bowel regimen: Senna and MiraLAX. PRN analgesics: Tylenol. CODE STATUS do not DO NOT INTUBATE Disposition: Patient to be started on subcutaneous Lovenox and should be able to be discharged the next 24-48 hours. Pain Evaluation: Adequate Pain Control GI Prophylaxis: Proton Pump Inhibitor VTE Prophylaxis: Other (The patient was on Coumadin and INR has been supratherapeutic. Holding off further anticoagulation until INR is 2.) VTE Mechanical Devices: Venous Foot Pump Resuscitation Status: DNR/DNI:Do Not Resuscitate/Intubate Eros Paz MD Dec 16, 2016 23:16
[2016-12-17 01:42] VITALS: BP 102/59; PULSE 72; RESP 18; O2SAT 94
[2016-12-17 04:40] VITALS: PULSE 72
[2016-12-17 04:56] VITALS: BP 103/65; PULSE 74; RESP 16; O2SAT 92
[2016-12-17 05:23] LABS: BASOPHILS % (AUTO) 0.5 % (0-3); EOSINOPHILS % (AUTO) 3.9 % (0-5); MONOCYTES % (AUTO) 9.2 % (4-12); Mean Corpuscular Hemoglobin 26.1 pg (27.0-35.0); Mean Corpuscular Volume 84.2 fL (81-100); Platelet Count 263 bil/L (150-400)
[2016-12-17 05:49] LABS: Magnesium 1.8 mg/dL (1.6-2.6)
[2016-12-17 06:02] LABS: INR 1.18 ratio
[2016-12-17] MEDS ORDERED: Pantoprazole 40 mg ER24 Tablet PO SCH (07:30)
[2016-12-17 08:37] VITALS: BP 96/55; PULSE 85; RESP 19; O2SAT 95
[2016-12-17] MEDS: PrednisoLONE 1% 5 mL Ophthalmic Suspension BOTH_EYES SCH (09:58)
--- NOTE | 2016-12-17 10:30 | NUR ---
GURVINDER signed ANA Ch
[2016-12-17 12:41] VITALS: PULSE 79
--- NOTE | 2016-12-17 13:37 | NUR ---
Social Work: Readiness for d/c Data: Pt is on day 4 of hospitalization. EMR reviewed, pt discussed in rounds. MD requested PROFESSIONAL BENEFITS SALES CONSULTANT run pt's perscription against their insurance benefit to see cost to pt for Lovenox. PROFESSIONAL BENEFITS SALES CONSULTANT met with pt, [facility] in [place] stated at preferred pharmacy. PROFESSIONAL BENEFITS SALES CONSULTANT called this pharmacy and faxed prescription to them, requested a call back. PROFESSIONAL BENEFITS SALES CONSULTANT will continue to follow. Assessment: Pt who is independent at baseline. Plan: Pt will d/c home via POV when medically stable, likely today per MD. PROFESSIONAL BENEFITS SALES CONSULTANT awaiting phone call from [facility] pharmacy regarding pt cost of medication. PROFESSIONAL BENEFITS SALES CONSULTANT will continue to follow. ANA Ch
[2016-12-17 13:39] VITALS: BP 99/63; PULSE 95; RESP 18; O2SAT 92
--- NOTE | 2016-12-17 15:54 | NUR ---
Social Work: Discharge Data: Pt is on day 4 of hospitalization. EMR reviewed, PARKING ATTENDANT spoke with MD. Prescription costs pt a $5 copay per [facility] pharmacy. No further d/c planning needs at this time. PARKING ATTENDANT will continue to follow if needs arise. Assessment: Pt who is independent at baseline. Plan: Pt will d/c home via POV today. Prescription costs pt a $5 copay per [facility] pharmacy. No further d/c planning needs at this time. PARKING ATTENDANT will continue to follow if needs arise. ANA Ch
--- NOTE | 2016-12-17 17:18 | PCM.DIMED ---
Discharge Instructions Date of Service Dec 17, 2016 Dates of Hospitalization Dec 13, 2016 at 18:11 Discharge Diagnosis Discharge Diagnosis Pulmonary Embolism with Diffuse Large B-Cell Lymphoma Diet Heart Healthy Activity No restrictions (The patient may return to her usual activities gradually as tolerated.) Call your provider Fever or Chills, Shortness of breath, Bleeding, Chest pain, Vomitting, Excessive diarrhea, Weakness (unilateral) Patient Instructions Follow-up Provider: [facility] Follow-up with PCP in: 1 week Provider: Noah Xie MD Follow-up in: 1 week (The patient has an appointment on 12/24/16.) Eros Paz MD Dec 17, 2016 17:18
[2016-12-17] MEDS ORDERED: Acetaminophen PO (17:21)
[2016-12-17] MEDS ORDERED: DIPH25CA6 PO (17:21)
[2016-12-17] MEDS ORDERED: LOV60 SUBQ (17:21)
[2016-12-17] MEDS ORDERED: PANT40TA3 PO (17:21)
--- NOTE | 2016-12-17 18:30 | NUR ---
Discharge pt. jair'd this evening. RA sats mid-high 90's; ambulating ind in room; steady on feet; denies dizziness. Medications and discharge instructions reviewed with pt. and student RN; no questions. Prescriptions given to ptDario Galicia deaccessed per IV therapy. No questions about care. Belongings with pt. Escorted to private vehicle via w/c by student RN.
--- NOTE | 2016-12-18 00:59 | PCM.DC.MED ---
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 Dictated by: Brock Bai M.D. on 12/13/2016 at 16:37 Approved by: Brock Bai M.D. on 12/13/2016 at 16:38 CT ANGIO CHEST PULMONARY EMBOLISM IMPRESSION: 1. Definite bilateral moderate amount of pulmonary embolus in the lower lungs 2. Bilateral trace left and small to moderate right pleural effusions and small amount of ascites. 3. Adenopathy involving the neck, mediastinum, and periaortic areas in the abdomen as well as the axillary regions and subpectoral regions. The distribution would be highly suspicious for lymphoma or less likely metastatic disease. Similar distribution as seen on the CT scan of 11/05/16. Since the previous CT scan the effusions have increased. The para-aortic adenopathy at the level of the celiac axis on the left side has definitely increased in size. Axillary adenopathy may be slightly increased in size as well. Dictated by: Brock Bai M.D. on 12/13/2016 at 19:09 Dr. Hayes is aware of the findings. Approved by: Brock Bai M.D. on 12/13/2016 at 19:25 . [facility] [place] [address] Patient Name: MARLEEN NEIL MR#: [id number] [place] [facility] [place]ing Phys: Bobbi Hua DO Date of Service: 12/13/16 2108 P ECG 12 Lead EKG: Sinus rhythm, heart rate 82, normal axis, baseline artifact present throughout every lead, normal intervals, poor R-wave progression, no pathological Q waves or acute ischemic changes such as ST elevation or depression. . Brief History Marleen Neil is a 81-year-old female with an extensive past medical history including recently diagnosed with large B-cell lymphoma (11/06/16) and PE now on warfarin, AAA, paroxysmal atrial fibrillation, thrombophlebitis secondary to a right lower extremity DVT and valvular heart disease who presents to [facility] complaining of dyspnea on exertion that began 3 days ago. The patient had left subclavian central venous catheter placed on 12/05/16. Her symptoms have become increasingly worse since onset. The dyspnea is exacerbated by exertion and relieved during rest. Patient's last INR (12/12/16) was above 3 for which she had her warfarin dosage adjusted recently. She denies missing any warfarin dosing. She denies headache, vision changes, chest pain, pleuritic pain, cough, fever, palpitations. She does endorse bilateral lower extremity swelling right greater than left which is chronic in nature. Patient is scheduled to see Dr. Xie on 12/23/16 to discuss treatment. Patient was found to have a pulmonary embolism and was admitted to the hospital service for further evaluation and treatment. Hospital Course Marleen Neil is a 81-year-old female with an extensive past medical history including recently diagnosed with large B-cell lymphoma (11/06/16) and PE now on warfarin, AAA, paroxysmal atrial fibrillation, thrombophlebitis secondary to a right lower extremity DVT and valvular heart disease who presents to [facility] complaining of dyspnea on exertion that began 3 days ago. Patient was found to have a pulmonary embolus and was admitted to the hospital service. # Dyspnea in setting of bilateral pulmonary emboli, present on admission. Active and improved. - Patient presented with dyspnea on exertion in context of recent pulmonary emboli therapeutic on warfarin and B-cell lymphoma. - Patient's Coumadin was supratherapeutic. And is now subtherapeutic. - CT angiogram demonstrated bilateral moderate amount of pulmonary embolus in the lower lungs, as above. These possibly may be bilingual sales representative of chronic pulmonary emboli versus acute on chronic. - Doppler ultrasound of lower extremities is significant for right lower extremities DVT. - Patient does not appear to have infectious source. Low threshold to start broad-spectrum antibiotics. - Contacted Dr. Waddell . He states that her finding of pulmonary embolism on her CTA from the time of admission is not new as she had a VQ scan in the previous admit but not a CTA. No ordered to prevent her from going supratherapeutic with her INR again he recommends that we repeat till her INR drops to 2.0 and start her on therapeutic enoxaparin. He saw the patient in consultation. We appreciate his recommendations. We will be holding any further doses of Coumadin. Daily INR are ordered. - We began full dose Lovenox this evening as Coumadin is now subtherapeutic. # Acute kidney injury, present on admission. Active. - Likely secondary to prerenal azotemia as patient reports decreased PO intake and she is on chronic diuresis with furosemide. - Baseline creatinine 0.92. - Ordered IV fluids with NS at 100 mL/hr. - Avoid nephrotoxic agents. - Monitor urine output and renal function. # Hypercalcemia, chronic, present on admission. Active. - Likely secondary to neoplasm in the setting of dehydration. - Ordered IV fluids with NS at 100 mL/hr. - Continue to monitor closely on telemetry. -Discussed this with Dr. Waddell who recommended that we give her 1 dose of 3.6 mg Zometa IV . This was done -- Continue monitoring with daily labs # Normocytic anemia, possibly chronic. Active.: Her dyspnea may be secondary to hypoxia secondary to anemia - Likely secondary to chronic disease. -Patient has some level of rectal bleeding - Every 4 hours H&H was ordered until stabilized -- Stool guaiac is sent # Stage IIIA diffuse large B-cell lymphoma: - The patient is scheduled to begin systemic treatment with R-CHOP for six cycles after completing her staging evaluation. She may have an upcoming PET scan arranged by Dr. Xie. In addition, he plans to do bone marrow studies tomorrow, either in hospital or in clinic. While she is in the hospital, it may also be useful to obtain her pre- anthracycline cardiac echo. This could also evaluate for evidence of pulmonary hypertension which could be seen with extensive bilateral pulmonary emboli.Active. - Patient is planning to establish care with Dr. Xie on 12/23/2016. - Patient recently had a left subclavian Port-A-Cath placed on 12/05/2016 for future chemotherapy. - Patient underwent bone marrow biopsy 12/16/2016. He tolerated the procedure well and results are pending. # Paroxysmal atrial fibrillation. Inactive. - CAIDS3OUAD score is a 1.0. - Continue metoprolol tartrate 25 mg twice a day. - Continue to monitor on telemetry. 7. Bilateral peripheral edema, chronic. - Held furosemide 40 mg daily for now. We may need to restart Lasix - DVT seen in the right lower extremity on Doppler ultrasound. 8. Recent left cornea transplant. - Continue prednisolone eyedrops. PRN antiemetics: Zofran and Maalox. PRN bowel regimen: Senna and MiraLAX. PRN analgesics: Tylenol. CODE STATUS do not DO NOT INTUBATE Disposition: supervisor volunteer services obtained approval from [facility] for outpatient treatment with full dose Lovenox. Patient's co-pay will be $5 which she agrees to pay. Patient will be therefore will be discharged home today on Lovenox subcutaneous therapy for dose. Patient is follow-up with Dr. Lowry next week to start induction chemotherapy. Exam Vital Signs (Last) Date Time Temp Pulse Resp B/P Pulse Ox O2 Delivery O2 Flow Rate FiO2 12/17/16 13:39 36.6 95 18 99/63 92 Room Air 12/17/16 08:37 1.00 Exam General: The patient is lying supine in bed with her head elevated 45. She is in no apparent distress. HEENT: Head is atraumatic and normocephalic. Eyes: Pupils are equally round and reactive to light and accommodation. Extraocular muscles are intact. Sclera are white, anicteric. Subconjunctival mucosa is pink. Ears and nose are unremarkable. Oropharynx: There is no mucosal lesions, there is no thrush, there is no pharyngitis. Neck: Is supple, there are no nodes, or masses or tenderness. Chest: There are decreased breath sounds bilaterally. However, there are no rales, rhonchi, wheezes or rubs. Heart: Rate, rhythm is regular. There is no murmur, rub or gallop. Abdomen: Good bowel sounds are present. Abdomen is soft, nontender, no organomegaly or masses were appreciated. Extremities: There is 2+ pitting edema of both lower extremities, right slightly greater than left. There is no cellulitis or rash. Neurologic: There are no focal neurological deficits. Cranial nerves II through XII are intact. There are no sensory or motor deficits. Psychiatric: Patients mood is calm and shows no sign of agitation. Genital: Deferred Rectal: Deferred Test 12/13/16 15:50 12/13/16 16:45 12/16/16 15:00 12/17/16 05:10 Troponin T < 0.010ug/L (0.0-0.011) Pro-B-Type Natriuretic Peptide 418.3pg/mL (0-738) Hold Guzmán Top Tube Received (Received) Urine Color Straw (YELLOW) Urine Appearance Clear (CLEAR,HAZY) Urine pH 5.5 (5.0-8.0) Urine Specific [place] 1.015 (1.003-1.035) Urine Protein Negativemg/dL (NEG,TRACE) Urine Glucose (UA) Negativemg/dL (NEGATIVE) Urine Ketones Negativemg/dL (NEGATIVE) Urine Occult Blood Negative (NEGATIVE) Urine Nitrite Negative (NEGATIVE) Urine Bilirubin Negative (NEGATIVE) Urine Urobilinogen Normalmg/dL (NORMAL) Urine Leukocyte Esterase Trace (NEGATIVE) Urine RBC 0-2/hpf (0-2) Urine WBC 0-5/hpf (0-5) Urine Epithelial Cells Few/hpf (NONE-MOD) Urine Crystals None seen (NONE SEEN) Urine Bacteria Few/hpf (NONE-FEW) Urine Hyaline Casts None/lpf (NONE) Urine Granular Casts None seen (NONE SEEN) Urine Waxy Casts None seen (NONE SEEN) Urine Red Blood Cell Casts None seen (NONE SEEN) Urine White Blood Cell Casts None seen (NONE SEEN) Urine Mucus None seen (None Seen) Urine Trichomonas None seen (NONE SEEN) Urine Yeast None (NONE SEEN) Urinalysis Comment None Urine Culture Reflexed Indicated Hepatitis B Surface Antigen Negative (Negative) Hepatitis B Surface Antibody Non reactive (.) Hepatitis B Core Total Antibody Negative (Negative) White Blood Count 4.4th/mm3 (3.8-10.1) Red Blood Count 3.79mil/mm3 (3.90-5.20) Hemoglobin 9.9g/dL (12.0-15.6) Hematocrit 31.9% (35.0-46.0) Mean Corpuscular Volume 84.2fL (81-100) Mean Corpuscular Hemoglobin 26.1pg (27.0-35.0) Mean Corpuscular Hemoglobin Concent 31.0% (32.0-37.0) Red Cell Distribution Width 17.9% (12.3-15.4) Platelet Count 263bil/L (150-400) Neutrophils (%) (Auto) 82.0% (40-74) Lymphocytes (%) (Auto) 3.7% (14-46) Monocytes (%) (Auto) 9.2% (4-12) Eosinophils (%) (Auto) 3.9% (0-5) Basophils (%) (Auto) 0.5% (0-3) Prothrombin Time 12.7sec (8.1-12.5) Prothromb Time International Ratio 1.18ratio Sodium Level 138mEq/L (134-144) Potassium Level 3.9mEq/L (3.5-5.2) Chloride Level 102mEq/L (97-108) Carbon Dioxide Level 23mmol/L (18-29) Blood Urea Nitrogen 28mg/dL (8-27) Creatinine 1.35mg/dL (0.57-1.00) Estimat Glomerular Filtration Rate 54mL/min (>59) Glucose Level 82mg/dL (60-99) Calcium Level 11.7mg/dL (8.5-10.1) Magnesium Level 1.8mg/dL (1.6-2.6) Total Bilirubin 0.3mg/dL (0.0-1.2) Aspartate Amino Transf (AST/SGOT) 39U/L (0-50) Alanine Aminotransferase (ALT/SGPT) 9U/L (0-32) Alkaline Phosphatase 50U/L (25-165) Total Protein 5.5g/dL (6.4-8.4) Albumin 2.8g/dL (3.4-5.0) Microbiology Results Urine culture pending. . Discharge Medications Discharge Medications ([Acetaminophen]) 325 MG TABLET 650 MG PO HS Prescribed by: HEMANTH PAZ MD Ascorbic Acid (Vitamin C) 250 Mg Tab.chew 1,000 MG PO DAILY (Reported) Aspirin (Aspirin) 81 Mg Tablet 81 MG PO DAILY (Reported) Enoxaparin (Lovenox) 60 Mg/0.6 Ml Syringe 60 MG SUBQ Q12 Prescribed by: HEMANTH PAZ MD Gluc 2Kcl/Chondr/Jt Hy/Hy AC (Glucosamine & Chondroitin Cap) 1 Each Capsule 1 EACH PO BID (Reported) Metoprolol Tartrate (Metoprolol Tartrate) 25 Mg Tablet 25 MG PO BID Prescribed by: GEOFFREY BOOKER MD Pantoprazole DR (Pantoprazole DR) 40 Mg Tablet.dr 40 MG PO DAILYAC Prescribed by: HEMANTH PAZ MD Prednisolone Acetate (Prednisolone Acetate) 5 Ml Drops.susp 1 GTT AFFECT_EYE BID (Reported) diphenhydrAMINE HCl (Benadryl) 25 Mg Capsule 25 MG PO HS Prescribed by: HEMANTH PAZ MD Followup Plan Disposition: Patient is being discharged home in the care of a very good friend of hers and her son who are at bedside. Discharge Diet: Heart Healthy Discharge Activity: No restrictions (The patient may return to her usual activities gradually as tolerated.) Follow-up Provider: [facility] Follow-up with PCP in: 1 week Provider: Noah Xie MD Follow-up in: 1 week (The patient has an appointment on 12/24/16.) Time spent Time spent on discharging this patient was greater than 35 minutes, over half of which was involved in counseling and coordination of care. Eros Paz MD Dec 18, 2016 00:59
[2016-12-25] MEDS ORDERED: ONDA4TAB9 PO (16:43)
[2016-12-25] MEDS ORDERED: PRE20 PO (16:43)
== END 2016-12-17 18:36 | disposition home or self-care (01) | DRG 176 ==
LOC: SED 13:30 → MPC 18:11
PROVIDERS: ADMIT Internal Medicine; ATTEND Hospitalist
PROC: 07DR3ZX Extraction of Iliac Bone Marrow, Percutaneous Approach, Diagnostic (ICD-10-PCS; principal; 2016-12-16)
DX: I26.99 Other pulmonary embolism without acute cor pulmonale (principal); C83.35 Diffuse large B-cell lymphoma, lymph nodes of inguinal region and lower limb; I27.82 Chronic pulmonary embolism; E83.52 Hypercalcemia; I10 Essential (primary) hypertension; I71.4 Abdominal aortic aneurysm, without rupture; I48.0 Paroxysmal atrial fibrillation; E86.0 Dehydration; Z66 Do not resuscitate; Z79.01 Long term (current) use of anticoagulants; Z79.82 Long term (current) use of aspirin; Z94.7 Corneal transplant status